=== PATIENT | female | born 1985 | race African-American/Black ===

== ENCOUNTER 2024-03-14 09:46 | Emergency (ER) | payer MEDICAID ==
[~2024-03-14] VITALS: Ht 154.9 cm; Wt 86.7 kg
--- NOTE | 2024-03-14 10:46 | ED.PDOC ---
General HPI Comments 38 Y F with PSX of x2, presents to the ED with CC of vaginal bleeding. Patient states that she has been experiencing heavy vaginal bleeding with blood clots for 3 months, with associated abdominal pain. Patient relays that she had a stillbirth 3 months ago, which she believes is associated with her symptoms. Patient states that she has been unable to see an OBGYN due to just moving from [facility]; and has yet to find a new doctor. Patient denies any NKA, tobacco usage,ETOH, or illicit drugs. Chief Complaint: Vaginal Bleed Time Seen by MD: 10:32 Primary Care Provider: SANA Reviewed notes: Nurses Notes, Medications, Allergies Allergies: Coded Allergies: Penicillins (Verified Allergy, Unknown, 03/14/24) Information Source: Patient Mode of Arrival: Ambulatory Severity: Moderate Timing: Months Duration: Since onset Onset: Spontaneous Symptoms: None History of: None Location: None Modifying factors: None associated signs and symptoms: None Past Medical History PAST MEDICAL HISTORY: Denies Surgical History: Surgical History (Other): L KNEE REPAIR PERSONAL COMPUTER SPECIALIST History: Other (STILLBIRTH ) Family History Family History: Unknown Social History Smoker: Non-Smoker Alcohol: Denies ETOH Use Drugs: Denies Drug Use Lives In: Home Constitutional: denies: chills, diaphoresis, fatigue, fever, malaise, sweats, weakness, others EENTM: denies: blurred vision, double vision, ear bleeding, ear discharge, ear drainage, ear pain, ear ringing, eye pain, eye redness, hearing loss, mouth pa in, mouth swelling, nasal discharge, nose bleeding, nose congestion, nose pain, photophobia, tearing, throat pain, throat swelling, voice changes, others Respiratory: denies: cough, hemoptysis, orthopnea, SOB at rest, shortness of breath, SOB with excertion, stridor, wheezing, others Cardiovascular: denies: chest pain, dizzy spells, diaphoresis, Dyspnea on exertion, edema, irregular heart beat, left arm pain, lightheadedness, palpitations, PND, syncope, others Gastrointestinal: reports: abdominal pain; denies: abdomen distended, blood streaked bowels, constipated, diarrhea, dysphagia, difficulty swallowing, hematemesis, melena, nausea, poor appetite, poor fluid intake, rectal bleeding, rectal pain, vomiting, others Genitourinary: reports: abnormal vagina bleeding; denies: burning, dyspareunia, dysuria, flank pain, frequency, hematuria, incontinence, pain, , vagina discharge, urgency, others Neurological: denies: dizziness, fainting, headache, left sided numbness, left sided weakness, numbness, paresthesia, pre-existing deficit, right sided numbness, right sided weakness, seizure, speech problems, tingling, tremors, weakness, others Musculoskeletal: denies: back pain, gout, joint pain, joint swelling, muscle pain, muscle stiffness, neck pain, others Integumetry: denies: bruises, change in color, change in hair/nails, dryness, laceration, lesions, lumps, rash, wounds, others Allergic/Immunocompromised: denies: Difficulty Healing, Frequent Infections, Hives, Itching, others Hematologic/Lymphatic: denies: anemia, blood clots, easy bleeding, easy bruising, swollen glands, others Endocrine: denies: excessive hunger, excessive sweating, excessive thirst, excessive urination, flushing, intolerance to cold, intolerance to heat, unexplained weight gain, unexplained weight loss, others Psychiatric: denies: anxiety, bipolar disorder, depression, hopeless, panic di sorder, schizophrenia, sleepless, suicidal, others All Other Systems: Reviewed and Negative Physical Exam General Appearance: No Apparent Distress, Normal HEENT: Normal ENT Inspection, Pharynx Normal, TMs Normal Neck: Full Range of Motion, Non-Tender, Normal, Normal Inspection Respiratory: Chest Non-Tender, Lungs Clear, No Accessory Muscle Use, No Respiratory Distress, Normal Breath Sounds Cardiovascular: No Edema, No JVD, No Murmur, No Gallop, Normal Peripheral Pulses, Regular Rate/Rhythm Breast Exam: Deferred Gastrointestinal: No Organomegaly, Non Tender, No Pulsatile Mass, Normal Bowel Sounds, Soft Genitalia: Deferred Pelvic: Deferred Rectal: Deferred Extremities: No calf tenderness, Normal capillary refill, Normal inspection, Normal range of motion, Non-tender, No pedal edema Musculoskeletal : Apperance: Normal Neurologic: Alert, refractory worker II-XII nml as Tested, No Motor Deficits, Normal Affect, Normal Mood, No Sensory Deficits Cerebellar Function: Normal Reflexes: Normal Skin: Dry, Normal Color, Warm Lymphatic: No Adenopathy Was a procedure done? Was a procedure done?: No Differential Diagnosis Kidney stone (Female): Cholelithiasis, Urinary obstruction, Urolithiasis Urinary Problem (Female): Urolithiasis, Vaginitis X-Ray, Labs, Meds, VS Vital Signs Date Time Temp Pulse Resp B/P (MAP) Pulse Ox O2 Delivery O2 Flow Rate FiO2 03/14/24 11:35 98.4 85 18 126/86 (99) 100 98.4 03/14/24 09:58 99.3 101 18 131/86 (101) 98 Lab Test 03/14/24 12:23 03/14/24 10:54 Range/Units White Blood Count 9.6 4.4-10.8 10^3/uL Red Blood Count 4.53 4.0-5.20 10^6/uL Hemoglobin 14.5 12.2-16.2 g/dL Hematocrit 43.3 36.0-46.0 % Mean Corpuscular Volume 95.6 80.0-100.0 fL Mean Corpuscular Hemoglobin 31.9 28.0-32.0 pg Mean Corpuscular Hemoglobin Concent 33.4 32.0-36.0 g/dL Red Cell Distribution Width 14.1 11.8-14.3 % Platelet Count 277 140-450 10^3/uL Mean Platelet Volume 8.9 6.9-10.8 fL Neutrophils (%) (Auto) 75.4 37.0-80.0 % Lymphocytes (%) (Auto) 18.0 10.0-50.0 % Monocytes (%) (Auto) 5.9 0.0-12.0 % Eosinophils (%) (Auto) 0.2 0.0-7.0 % Basophils (%) (Auto) 0.5 0.0-2.0 % Neutrophils # (Auto) 7.3 1.6-8.6 10 ^3/uL Lymphocytes # (Auto) 1.7 0.4-5.4 10 ^3/uL Monocytes # (Auto) 0.6 0-1.3 10 ^3/uL Eosinophils # (Auto) 0 0-0.8 10 ^3/uL Basophils # (Auto) 0.1 0-0.2 10 ^3/uL Nucleated Red Blood Cells 0.1 % Prothrombin Time 10.3 9.3-11.8 sec Prothrombin Time INR 0.97 0.9-1.15 Sodium Level 140 136-145 mmol/L Potassium Level 3.6 3.5-5.1 mmol/L Chloride Level 108 H 98-107 mmol/L Carbon Dioxide Level 24 20-31 mmol/L Anion Gap 8 5-15 Blood Urea Nitrogen 6 L 9-23 mg/dL Creatinine 0.82 0.550-1.02 mg/dL Glomerular Filtration Rate Calc 94 >90 mL/min BUN/Creatinine Ratio 7.3 L 10.0-20.0 Serum Glucose 90 74-106 mg/dL Calcium Level 10.1 8.7-10.4 mg/dL Urine Color Colorless Yellow Urine Clarity Clear Clear Urine pH 5.5 5.0-9.0 Urine Specific [place] 1.005 1.001-1.035 Urine Protein Negative Negative Urine Ketones Negative Negative Urine Blood 2+ H Negative /uL Urine Nitrite Negative Negative Urine Bilirubin Negative Negative Urine Urobilinogen Normal Negative mg/dL Urine Leukocyte Esterase Negative Negative /uL Urine RBC 1 0 - 4 /hpf Urine WBC 1 0 - 5 /hpf Urine Squamous Epithelial Cells Few <5 /hpf Urine Bacteria Few H None Seen /hpf Urine Glucose Normal Normal mg/dL Urine Test Negative Negative Time of 1ST Reevaluation: 11:02 Reevaluation 1ST: Unchanged Patient Education/Counseling: Diagnosis, Treatment Family Education/Counseling: No Family Present Additional Information The following tests were ordered, and results were reviewed by me: CBC, CMP, UA, TEST URINE I discussed treatment and results with medical personnel and patient. Departure 1 Departure Time of Disposition: 14:19 (Patient's workup is benign. We will refer patient to OBGYN for abnormal vaginal bleeding.) Impression: Primary Impression: Abnormal vaginal bleeding Disposition: HOME / SELF CARE / HOMELESS Condition: Stable Referrals: JASMYN AVALOS DO Additional Instructions: Your workup today is benign. You were referred to [facility]. Please call for an appointment today. For pain you can take the followinam: Ibuprofen 400mg with food Noon: Acetaminophen 1000mg 4pm: Ibuprofen 400mg with food 8pm: Acetaminophen 1000mg You should follow up with your regular doctor within one week to ensure you are doing better. If your symptoms worsen or you have any other concerns then please return to the ER. Discharged With: Self Critical Care Note Critical Care Time?: No Stability Stability form required: No Heart Score Heart Score: Heart Score Response (Comments) Value History N/A 0 EKG N/A 0 Age N/A 0 Risk Factors N/A 0 Troponin N/A 0 Total 0 I personally scribed for ARLYN BOWDEN MD ([email or web address]) on 03/14/24 at 10:46. Electronically submitted by Jaye Wills ([email or web address]). I personally scribed for ARLYN BOWDEN MD ([email or web address]) on 03/14/24 at 11:16. Electronically submitted by Jaye Wills ([email or web address]). ARLYN BOWDEN MD Mar 14, 2024 10:46
[2024-03-14 11:35] VITALS: BP 126/86; PULSE 85; RESP 18; TEMP 98.4; O2SAT 100
[2024-03-14 11:58] LABS: Urine Bacteria FEW /hpf (None Seen); Urine Blood 2+ /uL (Negative); Urine Clarity Clear (Clear); Urine Color Colorless (Yellow); Urine Protein, UAD Negative (Negative); Urine Specific Gravity 1.005 (1.001-1.035); Urine Urobilinogen Normal (Negative); Urine WBC 1 /hpf (0 - 5); Urine pH 5.5 (5.0-9.0)
[2024-03-14 12:45] LABS: Basophils # (auto) 0.1 10 ^3/uL (0-0.2); Basophils % (auto) 0.5 % (0.0-2.0); Eosinophils # (auto) 0 10 ^3/uL (0-0.8); Eosinophils % (auto) 0.2 % (0.0-7.0); Hematocrit 43.3 % (36.0-46.0); Hemoglobin 14.5 g/dL (12.2-16.2); Lymphocytes # (auto) 1.7 10 ^3/uL (0.4-5.4); Mean Corpuscular Hemoglobin 31.9 pg (28.0-32.0); Mean Corpuscular Hgb Conc. 33.4 g/dL (32.0-36.0); Mean Corpuscular Volume 95.6 fL (80.0-100.0); Monocytes # (auto) 0.6 10 ^3/uL (0-1.3); Monocytes % (auto) 5.9 % (0.0-12.0); Neutrophils # (auto) 7.3 10 ^3/uL (1.6-8.6); Neutrophils % (auto) 75.4 % (37.0-80.0); Nucleated Red Blood Cells % 0.1 %; Platelet Count (auto) 277 10^3/uL (140-450); Red Blood Cells 4.53 10^6/uL (4.0-5.20); Red Cell Distribution Width 14.1 % (11.8-14.3); White Blood Cell 9.6 10^3/uL (4.4-10.8)
[2024-03-14 13:01] LABS: Potassium 3.6 mmol/L (3.5-5.1); Sodium 140 mmol/L (136-145)
[2024-03-14 13:02] LABS: Anion Gap 8 (5-15); Calcium 10.1 mg/dL (8.7-10.4); Carbon Dioxide 24 mmol/L (20-31)
[2024-03-14 13:07] LABS: BUN/Creatinine Ratio 7.3 (10.0-20.0); Glucose 90 mg/dL (74-106); INR 0.97 (0.9-1.15); Prothrombin Time 10.3 sec (9.3-11.8)
[2024-03-14 13:08] LABS: Blood Urea Nitrogen 6 mg/dL (9-23); Chloride 108 mmol/L (98-107)
[2024-03-14] MEDS: KETOROLAC TROMETH 30 MG/ML 1ML VIAL IM ONE (16:15)
== END 2024-03-14 16:00 | disposition home or self-care (01) ==
LOC: ER 09:46
DX: N93.9 Abnormal uterine and vaginal bleeding, unspecified (principal); Z87.59 Personal history of other complications of pregnancy, childbirth and the puerperium; Z88.0 Allergy status to penicillin; Z32.02 Encounter for pregnancy test, result negative
CPT/HCPCS: 36415; 80048; 81001; 81025; 85025; 85610; 96372; 99283; J1885

== ENCOUNTER 2024-04-27 10:09 | Emergency (ER) | payer MEDICAID | END 2024-04-27 10:57 | disposition left against medical advice (07) | LOC: ER 10:09 | DX: M54.9 Dorsalgia, unspecified (principal); Z53.21 Procedure and treatment not carried out due to patient leaving prior to being seen by health care provider ==

== ENCOUNTER 2024-06-20 12:22 | Emergency (ER) | payer MEDICAID ==
[~2024-06-20] VITALS: Ht 165.1 cm; Wt 80.3 kg
[2024-06-20] MEDS ORDERED: CLIN1CAP70 PO (13:03)
[2024-06-20] MEDS ORDERED: HYDR-4902 PO (13:03)
--- NOTE | 2024-06-20 13:04 | ED.PDOC ---
History of Present Illness HPI Comments 38-year-old female who comes in with chief complaint of left forehead swelling with some tenderness and redness. The patient denies any nausea, vomiting or diarrhea. The patient denies any fever at this time. The patient also denies any type of trauma. 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, Other Family History Family History: Unknown Social History Smoker: Non-Smoker Alcohol: Occasionally Drugs: Denies Drug Use Lives In: Home Constitutional: denies: chills, diaphoresis, fatigue, fever, malaise, sweats, weakness, others EENTM: denies: blurred vision, double vision, ear bleeding, ear discharge, ear drainage, ear pain, ear ringing, eye pain, eye redness, hearing loss, mouth pain, mouth swelling, nasal discharge, nose bleeding, nose congestion, nose pain, photophobia, tearing, throat pain, throat swelling, voice changes, others Respiratory: denies: cough, hemoptysis, orthopnea, SOB at rest, shortness of breath, SOB with excertion, stridor, wheezing, others Cardiovascular: denies: chest pain, dizzy spells, diaphoresis, Dyspnea on exertion, edema, irregular heart beat, left arm pain, lightheadedness, palpitations, PND, syncope, others Gastrointestinal: denies: abdomen distended, abdominal pain, blood streaked bowels, constipated, diarrhea, dysphagia, difficulty swallowing, hematemesis, melena, nausea, poor appetite, poor fluid intake, rectal bleeding, rectal pain, vomiting, others Genitourinary: denies: abnormal vagina bleeding, burning, dyspareunia, dysuria, flank pain, frequency, hematuria, incontinence, pain, , vagina discharge, urgency, others Neurological: denies: dizziness, fainting, headache, left sided numbness, left sided weakness, numbness, paresthesia, pre-existing deficit, right sided numbness, right sided weakness, seizure, speech problems, tingling, tremors, weakness, others Musculoskeletal: denies: back pain, gout, joint pain, joint swelling, muscle pain, muscle stiffness, neck pain, others Integumetry: reports: rash (Redness to the left forehead region with some minimal swelling); denies: bruises, change in color, change in hair/nails, dryness, laceration, lesions, lumps, wounds, others Allergic/Immunocompromised: denies: Difficulty Healing, Frequent Infections, Hives, Itching, others Hematologic/Lymphatic: denies: anemia, blood clots, easy bleeding, easy bruising, swollen glands, others Endocrine: denies: excessive hunger, excessive sweating, excessive thirst, excessive urination, flushing, intolerance to cold, intolerance to heat, unexplained weight gain, unexplained weight loss, others Psychiatric: denies: anxiety, bipolar disorder, depression, hopeless, panic disorder, schizophrenia, sleepless, suicidal, others Physical Exam General Appearance: Mild Distress HEENT: Normal ENT Inspection, Pharynx Normal, TMs Normal Neck: Full Range of Motion, Non-Tender, Normal, Normal Inspection Respiratory: Chest Non-Tender, Lungs Clear, No Accessory Muscle Use, No Respiratory Distress, Normal Breath Sounds Cardiovascular: No Edema, No JVD, No Murmur, No Gallop, Normal Peripheral Pulses, Regular Rate/Rhythm Breast Exam: Deferred Gastrointestinal: No Organomegaly, Non Tender, No Pulsatile Mass, Normal Bowel Sounds, Soft Genitalia: Deferred Pelvic: Deferred Rectal: Deferred Extremities: No calf tenderness, Normal capillary refill, Normal inspection, Normal range of motion, Non-tender, No pedal edema Musculoskeletal : Apperance: Normal Neurologic: Alert, sod stripper II-XII nml as Tested, No Motor Deficits, Normal Affect, Normal Mood, No Sensory Deficits Cerebellar Function: Normal Reflexes: Normal Skin: Dry, Normal Color, Rash (Redness and swelling around the left forehead region. There is tenderness to palpation), Warm Lymphatic: No Adenopathy Was a procedure done? Was a procedure done?: No Differential Dx Considerations may include: Generalized weakness, cellulitis, abscess X-Ray, Labs, Meds, VS The patient was given [place] for the headache. The patient was being given a prescription of clindamycin The patient will return to the emergency department's the condition worsens. The patient will follow up with the primary care doctor Time of 1ST Reevaluation: 13:01 Reevaluation 1ST: Improved Patient Education/Counseling: Diagnosis, Treatment, Prognosis, Need For Follow Up Family Education/Counseling: No Family Present Departure 1 Departure Time of Disposition: 13:02 Impression: Primary Impression: Facial cellulitis Disposition: 01 HOME / SELF CARE / HOMELESS Condition: Fair Discharged With: Self Critical Care Note Critical Care Time?: No Stability Stability form required: No Heart Score Heart Score: Heart Score Response (Comments) Value History N/A 0 EKG N/A 0 Age N/A 0 Risk Factors N/A 0 Troponin N/A 0 Total 0 EFREM OSEGUERA MD Jun 20, 2024 13:04
[2024-06-20 13:41] VITALS: BP 120/81; PULSE 90; RESP 18; TEMP 98.6; O2SAT 96
[2024-06-20] MEDS: CLINDAMYCIN HCL 150 MG CAP PO ONE (13:43)
[2024-06-20] MEDS: HYDROcodone-ACET 10/325MG TAB PO ONE (13:44)
== END 2024-06-20 14:05 | disposition home or self-care (01) ==
LOC: EDBD 12:22 → ER 12:27
DX: L03.211 Cellulitis of face (principal); J45.909 Unspecified asthma, uncomplicated; Z88.0 Allergy status to penicillin; Z90.89 Acquired absence of other organs

== ENCOUNTER 2024-06-21 12:56 | Inpatient (IN) | payer MEDICAID ==
[~2024-06-21] VITALS: Ht 154.9 cm; Wt 91.4 kg
[~2024-06-21 12:56] MED LIST: CLIN1CAP70 PO; HYDR-4902 PO
--- NOTE | 2024-06-21 13:17 | ED.PDOC ---
History of Present Illness HPI Comments 38-year-old female brought by paramedics because of left face increasing swelling. She does have a wound in the left forehead. She states that it started as a pimple few days ago was seen in the ER yesterday was given clindamycin sent home. She states that the swelling has been increasing on the left side of the face starting from the wound which is at the forehead. Denies any other symptoms. Time Seen by MD: 13:01 Primary Care Provider: none Reviewed Notes: Nurses Notes, Medications, Allergies Allergies: Coded Allergies: Penicillins (Verified Allergy, Unknown, 03/14/24) Home Meds Active Scripts Hydrocodone-Acetaminophen (Hydrocodone Bitartrate/AC 5-325 mg) 1 Tab Tab, 1 TAB PO Q8HP PRN for 7 Days, #21 TAB Prov:EFREM OSEGUERA MD 06/20/24 Clindamycin Hcl (Clindamycin Hcl) 300 Mg Cap, 1 CAP PO TID, #21 CAP Prov:EFREM OSEGUERA MD 06/20/24 Information Source: Patient Mode of Arrival: Ambulatory Severity: Moderate Timing: Days Duration: Since onset Past Medical History PAST MEDICAL HISTORY: Asthma, Seizures Surgical History: , Tonsillectomy INTERLACER History: No Pertinent INTERLACER History, Other Family History Family History: Unknown Social History Smoker: Non-Smoker Alcohol: Occasionally Drugs: Denies Drug Use Lives In: Home Constitutional: denies: chills, diaphoresis, fatigue, fever, malaise, sweats, weakness, others EENTM: denies: blurred vision, double vision, ear bleeding, ear discharge, ear drainage, ear pain, ear ringing, eye pain, eye redness, hearing loss, mouth pain, mouth swelling, nasal discharge, nose bleeding, nose congestion, nose pain, photophobia, tearing, throat pain, throat swelling, voice changes, others Respiratory: denies: cough, hemoptysis, orthopnea, SOB at rest, shortness of breath, SOB with excertion, stridor, wheezing, others Cardiovascular: denies: chest pain, dizzy spells, diaphoresis, Dyspnea on exertion, edema, irregular heart beat, left arm pain, lightheadedness, palpitations, PND, syncope, others Gastrointestinal: denies: abdomen distended, abdominal pain, blood streaked bowels, constipated, diarrhea, dysphagia, difficulty swallowing, hematemesis, melena, nausea, poor appetite, poor fluid intake, rectal bleeding, rectal pain, vomiting, others Genitourinary: denies: abnormal vagina bleeding, burning, dyspareunia, dysuria, flank pain, frequency, hematuria, incontinence, pain, , vagina discharge, urgency, others Neurological: denies: dizziness, fainting, headache, left sided numbness, left sided weakness, numbness, paresthesia, pre-existing deficit, right sided numbness, right sided weakness, seizure, speech problems, tingling, tremors, weakness, others Musculoskeletal: denies: back pain, gout, joint pain, joint swelling, muscle pain, muscle stiffness, neck pain, others Integumetry: reports: wounds (Left forehead); denies: bruises, change in color, change in hair/nails, dryness, laceration, lesions, lumps, rash, others Allergic/Immunocompromised: denies: Difficulty Healing, Frequent Infections, Hives, Itching, others Hematologic/Lymphatic: denies: anemia, blood clots, easy bleeding, easy bruising, swollen glands, others Endocrine: denies: excessive hunger, excessive sweating, excessive thirst, excessive urination, flushing, intolerance to cold, intolerance to heat, un explained weight gain, unexplained weight loss, others Psychiatric: denies: anxiety, bipolar disorder, depression, hopeless, panic disorder, schizophrenia, sleepless, suicidal, others Physical Exam General Appearance: Moderate Distress HEENT: Normal ENT Inspection, Pharynx Normal, TMs Normal Neck: Full Range of Motion, Non-Tender, Normal, Normal Inspection Respiratory: Chest Non-Tender, Lungs Clear, No Accessory Muscle Use, No Respiratory Distress, Normal Breath Sounds Cardiovascular: No Edema, No JVD, No Murmur, No Gallop, Normal Peripheral Pulses, Regular Rate/Rhythm Breast Exam: Deferred Gastrointestinal: No Organomegaly, Non Tender, No Pulsatile Mass, Normal Bowel Sounds, Soft Genitalia: Deferred Pelvic: Deferred Rectal: Deferred Extremities: No calf tenderness, Normal capillary refill, Normal inspection, Normal range of motion, Non-tender, No pedal edema Musculoskeletal : Apperance: Normal Neurologic: Alert, agricultural production engineer II-XII nml as Tested, No Motor Deficits, Normal Affect, Normal Mood, No Sensory Deficits Cerebellar Function: Normal Reflexes: Normal Skin: Wounds (Left forehead) Peripheral Pulses: 3+ Radial (R), 3+ Radial (L) Lymphatic: No Adenopathy Was a procedure done? Was a procedure done?: No Differential Dx Considerations may include: Facial cellulitis Electrolyte imbalance X-Ray, Labs, Meds, VS Vital Signs Date Time Temp Pulse Resp B/P (MAP) Pulse Ox O2 Delivery O2 Flow Rate FiO2 06/21/24 15:44 77 20 119/81 06/21/24 13:45 98.4 99 14 124/86 (99) 99 98.4 06/21/24 13:43 98.3 92 20 133/64 (87) 99 98.3 06/21/24 13:40 90 20 98 Room Air* 0 21 Lab Test 06/21/24 14:31 Range/Units White Blood Count 11.1 H 4.4-10.8 10^3/uL Red Blood Count 4.08 4.0-5.20 10^6/uL Hemoglobin 12.5 12.2-16.2 g/dL Hematocrit 37.9 36.0-46.0 % Mean Corpuscular Volume 93.0 80.0-100.0 fL Mean Corpuscular Hemoglobin 30.7 28.0-32.0 pg Mean Corpuscular Hemoglobin Concent 33.0 32.0-36.0 g/dL Red Cell Distribution Width 13.9 11.8-14.3 % Platelet Count 308 140-450 10^3/uL Mean Platelet Volume 8.6 6.9-10.8 fL Neutrophils (%) (Auto) 80.9 H 37.0-80.0 % Lymphocytes (%) (Auto) 12.1 10.0-50.0 % Monocytes (%) (Auto) 5.2 0.0-12.0 % Eosinophils (%) (Auto) 1.4 0.0-7.0 % Basophils (%) (Auto) 0.4 0.0-2.0 % Neutrophils # (Auto) 9.0 H 1.6-8.6 10 ^3/uL Lymphocytes # (Auto) 1.3 0.4-5.4 10 ^3/uL Monocytes # (Auto) 0.6 0-1.3 10 ^3/uL Eosinophils # (Auto) 0.2 0-0.8 10 ^3/uL Basophils # (Auto) 0 0-0.2 10 ^3/uL Nucleated Red Blood Cells 0.1 % Current Medications Medications (Trade) Dose Ordered Sig/Jayme Route Start Time Stop Time Status Last Admin Levofloxacin/ Dextrose 100 ml @ 100 mls/hr ONCE ONCE IV 06/21/24 13:15 06/21/24 14:14 DC 06/21/24 15:31 Morphine Sulfate 4 mg ONCE ONCE IV 06/21/24 15:30 06/21/24 15:31 DC 06/21/24 15:44 Ondansetron HCl (Zofran) 4 mg ONCE ONCE IV 06/21/24 15:30 06/21/24 15:31 DC 06/21/24 15:41 Patient alert. Has swelling of the left side of the face. Started at the forehead. Vitals stable. Answering questions. Spoke with [facility] physician. Was given Levaquin. Was given clindamycin. Was given morphine for pain. Was given Zofran. Reviewed her previous visit. Explained to the patient. Continue cardiac monitoring. [facility] was going to transfer the patient but they were full at their facility approved inpatient admission and will transfer when they have room. [id number]. Time of 1ST Reevaluation: 13:08 Reevaluation 1ST: Unchanged Patient Education/Counseling: Diagnosis, Treatment, Prognosis Family Education/Counseling: No Family Present Departure 1 Departure Time of Disposition: 13:17 Impression: Primary Impression: Facial cellulitis Disposition: 02 SHORT TERM HOSPITAL Admit to: Med Surg Condition: Guarded Critical Care Note Critical Care Time?: No Stability Stability form required: No Heart Score Heart Score: Heart Score Response (Comments) Value History N/A 0 EKG N/A 0 Age N/A 0 Risk Factors N/A 0 Troponin N/A 0 Total 0 WEI BRICENO MD Jun 21, 2024 13:17
[2024-06-21 13:40] VITALS: PULSE 90; RESP 20; O2SAT 98
[2024-06-21 14:45] LABS: Basophils # (auto) 0 10 ^3/uL (0-0.2); Basophils % (auto) 0.4 % (0.0-2.0); Eosinophils # (auto) 0.2 10 ^3/uL (0-0.8); Eosinophils % (auto) 1.4 % (0.0-7.0); Hematocrit 37.9 % (36.0-46.0); Hemoglobin 12.5 g/dL (12.2-16.2); Lymphocytes # (auto) 1.3 10 ^3/uL (0.4-5.4); Lymphocytes % (auto) 12.1 % (10.0-50.0); Mean Corpuscular Hemoglobin 30.7 pg (28.0-32.0); Monocytes # (auto) 0.6 10 ^3/uL (0-1.3); Monocytes % (auto) 5.2 % (0.0-12.0); Neutrophils % (auto) 80.9 % (37.0-80.0); Nucleated Red Blood Cells % 0.1 %; Platelet Count (auto) 308 10^3/uL (140-450); Red Blood Cells 4.08 10^6/uL (4.0-5.20); Red Cell Distribution Width 13.9 % (11.8-14.3); White Blood Cell 11.1 10^3/uL (4.4-10.8)
[2024-06-21] MEDS ORDERED: HYDROcodone-ACET 10/325MG TAB PO ONE (15:15)
[2024-06-21] MEDS: levoFLOXacin 500MG 100 ML IV ONE (15:31)
[2024-06-21] MEDS: ONDANSETRON HCL 4 MG/2 ML VIAL IV ONE (15:41)
[2024-06-21] MEDS: MORPHINE SULFATE 4 MG/ML SYR/VIAL IV ONE ×2 (15:44→19:06)
--- NOTE | 2024-06-21 17:33 | DVH ---
EXAM: CT MAXILLOFACIAL WITHOUT INDICATION: cellulitis EXAM DATE: 06/21/2024 04:59 PM COMPARISON: None TECHNIQUE: Multiple axial CT images of the maxilla and face were obtained using bone algorithm. Axial and coronal reformatting was done. Bone and soft tissue windows were reviewed. Radiation Dose Information: CT Dose: CTDI volume is 66.97 mGy. Dose-length product is 1869.65 mGy*cm Findings: There is no evidence of an acute fracture or traumatic subluxations. No evidence of lytic, blastic, or osseous destructive lesions. The paranasal sinuses, middle ear cavities, and mastoid air cells are normally aerated. The globes an d orbits are within normal limits. The nasal septum, nasal cavity, nasopharynx, and oropharynx are grossly unremarkable. The thyroid gland is unremarkable. The paraspinal and neck soft tissues appear within normal limits. Mild left periorbital soft tissue edema. Impression: 1. No acute osseous abnormalities. 2. Mild left periorbital soft tissue edema.
[2024-06-21] MEDS: CLINDAMYCIN 600MG IV 50 ML IV ONE (18:57)
[2024-06-21] MEDS: SODIUM CHLORIDE 0.9% 1,000 ML IV ONE ×2 (19:11)
[2024-06-21] MEDS: HYDROcodone-ACET 5/325MG TAB PO PRN (19:40)
[2024-06-21 20:06] LABS: Alanine Aminotransferase 20 U/L (7-40); Albumin 4.3 g/dL (3.2-4.8); Alkaline Phosphatase 66 U/L (46-116); Anion Gap 9 (5-15); Aspartate Aminotransferase 16 U/L (13-40); BUN/Creatinine Ratio 7.8 (10.0-20.0); Bilirubin, Total 0.4 mg/dL (0.2-1.0); Calcium 9.4 mg/dL (8.7-10.4); Carbon Dioxide 24 mmol/L (20-31); Glucose 85 mg/dL (74-106); Potassium 3.9 mmol/L (3.5-5.1); Sodium 140 mmol/L (136-145); Total Protein 6.9 g/dL (5.7-8.2)
[2024-06-21 20:10] LABS: Blood Urea Nitrogen 6 mg/dL (9-23); Chloride 107 mmol/L (98-107)
[2024-06-21 21:00] VITALS: BP 120/78; PULSE 88; RESP 17; TEMP 98.9; O2SAT 99
[2024-06-21 21:18] VITALS: BP 120/78; PULSE 88; RESP 17; TEMP 98.9; O2SAT 99
[2024-06-21] MEDS ORDERED: CLINDAMYCIN 600MG IV 50 ML IV SCH (22:00)
--- NOTE | 2024-06-21 22:22 | DVHHP2 ---
History of Present Illness Reason for Visit: Facial swelling History of Present Illness 38-year-old female presents for evaluation of left facial swelling. Patient reports being seen yesterday for a wound on her left forehead that started as a pimple three days ago. She was sent home with clindamycin. She states the symptoms became worse today now she reports having left periorbital redness and swelling. Denies blurred vision. No headache. Denies fever or chills. Past Medical History Seizure and asthma Past Surgical History Tonsillectomy and Family History Noncontributory Smoke: No ALCOHOL: occassional Drugs: None Lives: with Family Review of Systems Review of Systems Review of systems are currently negative otherwise addressed in HPI. Allergies: Coded Allergies: Penicillins (Verified Allergy, Unknown, 03/14/24) Medications Current Medications Medications Dose Ordered Sig/Jayme Route Start Time Stop Time Status Last Admin Dose Admin Levofloxacin/ Dextrose 100 ml @ 100 mls/hr DAILY IV 06/22/24 10:00 Clindamycin Phosphate 50 ml @ 50 mls/hr Q8HR IV 06/21/24 22:00 Acetaminophen/ Hydrocodone Bitart 1 tab Q4HP PRN PO 06/21/24 19:00 06/21/24 19:40 1 TAB Temazepam 15 mg QHSP PRN PO 06/21/24 19:00 Ondansetron HCl 4 mg Q4HP PRN IV 06/21/24 19:00 Acetaminophen 650 mg Q6HP PRN PO 06/21/24 19:00 Exam Vital Signs Vital Signs Date Time Temp Pulse Resp B/P (MAP) Pulse Ox O2 Delivery O2 Flow Rate FiO2 06/21/24 21:00 98.9 88 17 120/78 (92) 99 98.9 06/21/24 19:25 Room Air* 0 21 Exam Gen: 38-year-old female in mild distress Skin: Warm, dry, normal color and texture, no rash. HEENT: Normocephalic atraumatic, left periorbital erythema, left frontal scalp erythema Neck: Cervical and supraclavicular nodes normal without enlargement, trachea is midline, thyroid gland is normal without masses. Pulmonary: Clear to auscultation and percussion bilaterally. Cardiac: Regular rate and rhythm. No murmur Abdomen: Soft, nontender, nondistended, bowel sounds present all 4 quadrants, no guarding, no rigidity, no organomegaly. Extremities: No cyanosis, clubbing, no edema Neuro: Cranial nerves II through XII grossly intact, normal affect and speech, no focal motor deficits. Labs/Xrays ORDERING PHYSICIAN: WEI BRICENO MD PROCEDURE(s): FAC2C - MAXILLOFACIAL WITHOUT REASON: cellulitis ORDER NUMBER(s): [id number], ACCESSION NUMBER(s): [id number] EXAM: CT MAXILLOFACIAL WITHOUT INDICATION: cellulitis EXAM DATE: 06/21/2024 04:59 PM COMPARISON: None TECHNIQUE: Multiple axial CT images of the maxilla and face were obtained using bone algorithm. Axial and coronal reformatting was done. Bone and soft tissue windows were reviewed. Radiation Dose Information: CT Dose: CTDI volume is 66.97 mGy. Dose-length product is 1869.65 mGy*cm Findings: There is no evidence of an acute fracture or traumatic subluxations. No evidence of lytic, blastic, or osseous destructive lesions. The paranasal sinuses, middle ear cavities, and mastoid air cells are normally aerated. The globes and orbits are within normal limits. The nasal septum, nasal cavity, nasopharynx, and oropharynx are grossly unremarkable. The thyroid gland is unremarkable. The paraspinal and neck soft tissues appear within normal limits. Mild left periorbital soft tissue edema. Impression: 1. No acute osseous abnormalities. 2. Mild left periorbital soft tissue edema. Labs Test 06/21/24 19:30 06/21/24 14:31 Range/Units Sodium Level 140 136-145 mmol/L Potassium Level 3.9 3.5-5.1 mmol/L Chloride Level 107 98-107 mmol/L Carbon Dioxide Level 24 20-31 mmol/L Anion Gap 9 5-15 Blood Urea Nitrogen 6 L 9-23 mg/dL Creatinine 0.77 0.550-1.02 mg/dL Glomerular Filtration Rate Calc 101 >90 mL/min BUN/Creatinine Ratio 7.8 L 10.0-20.0 Serum Glucose 85 74-106 mg/dL Lactic Acid Level 0.9 0.4-2.0 mmol/L Calcium Level 9.4 8.7-10.4 mg/dL Total Bilirubin 0.4 0.2-1.0 mg/dL Aspartate Amino Transferase (AST) 16 13-40 U/L Alanine Aminotransferase (ALT) 20 7-40 U/L Alkaline Phosphatase 66 46-116 U/L Total Protein 6.9 5.7-8.2 g/dL Albumin 4.3 3.2-4.8 g/dL White Blood Count 11.1 H 4.4-10.8 10^3/uL Red Blood Count 4.08 4.0-5.20 10^6/uL Hemoglobin 12.5 12.2-16.2 g/dL Hematocrit 37.9 36.0-46.0 % Mean Corpuscular Volume 93.0 80.0-100.0 fL Mean Corpuscular Hemoglobin 30.7 28.0-32.0 pg Mean Corpuscular Hemoglobin Concent 33.0 32.0-36.0 g/dL Red Cell Distribution Width 13.9 11.8-14.3 % Platelet Count 308 140-450 10^3/uL Mean Platelet Volume 8.6 6.9-10.8 fL Neutrophils (%) (Auto) 80.9 H 37.0-80.0 % Lymphocytes (%) (Auto) 12.1 10.0-50.0 % Monocytes (%) (Auto) 5.2 0.0-12.0 % Eosinophils (%) (Auto) 1.4 0.0-7.0 % Basophils (%) (Auto) 0.4 0.0-2.0 % Neutrophils # (Auto) 9.0 H 1.6-8.6 10 ^3/uL Lymphocytes # (Auto) 1.3 0.4-5.4 10 ^3/uL Monocytes # (Auto) 0.6 0-1.3 10 ^3/uL Eosinophils # (Auto) 0.2 0-0.8 10 ^3/uL Basophils # (Auto) 0 0-0.2 10 ^3/uL Nucleated Red Blood Cells 0.1 % Assessment/Plan Assessment/Plan Assessment Facial cellulitis Mild leukocytosis Plan Admit the patient to [facility] to the hospitalist Levaquin/vancomycin Blood cultures pending Pain management Continue treatment per orders. Plan discussed with: Patient My Orders Orders - CHEYENNE LAINEZ AGACNP Procedure Category Date Status Time Levofloxacin 500mg PHA 06/22/24 In Process (Levaquin 500mg/ 100m 10:00 Clindamycin 600mg Iv PHA 06/21/24 In Process (Cleocin Iv) 22:00 Regular Diet DIET 06/22/24 Transmitted Breakfast Basic Metabolic Panel LAB 06/22/24 Verified 04:00 Blood Culture RAUL 06/21/24 In Process 18:55 Admit ADMIT 06/21/24 Transmitted 18:55 Hydrocodone-Acet PHA 06/21/24 In Process 5/325mg Tab ([place] 19:00 Temazepam (Restoril) PHA 06/21/24 In Process 19:00 Ondansetron Hcl PHA 06/21/24 In Process (Zofran) 19:00 Complete Blood Count LAB 06/22/24 Verified 04:00 Condition: Stable ROHAN 06/21/24 In Process 18:55 Acetaminophen Tablet PHA 06/21/24 In Process (Tylenol Tablet) 19:00 Bedrest With Bathroom ROHAN 06/21/24 In Process Privileg 18:55 Vancomycin Per PHA 06/22/24 Verified Pharmacy 12:00 Vancomycin PHA 06/21/24 Verified 22:30 Date of Service: Jun 21, 2024 Billing Provider: CHEYENNE LAINEZ Common Visit Codes: [id number] INP/OBS CARE (MOD) CHEYENNE LAINEZ Jun 21, 2024 22:22
[2024-06-21] MEDS: VANCOMYCIN 1GM/250ML KIT 250 ML IV ONE (22:30)
[2024-06-21] MEDS ORDERED: HYDROcodone-ACET 5/325MG TAB PO PRN (23:00)
[2024-06-21] MEDS: TEMAZEPAM 15 MG CAP PO PRN (23:23)
[2024-06-22] VITALS (8 sets, daily range): BP systolic 104–125; BP diastolic 63–79; PULSE 63–106; RESP 16–20; TEMP 97.7–98.7; O2SAT 95–100
[2024-06-22] MEDS: VANCOMYCIN 1GM/250ML KIT 250 ML IV ONE (00:06)
[2024-06-22] MEDS: LORazepam 2MG/ML-1ML VIAL ONE (03:02)
--- NOTE | 2024-06-22 03:35 | DVH ---
EXAM: CT HEAD WITHOUT CONTRAST INDICATION: szr TECHNIQUE: CT of the head without intravenous contrast. Radiation Dose : 1. Head: CT Dose: CTDI volume is 64.93 mGy. Dose-length product is 1277.89 mGy*cm The dose indicators for CT are the volume Computed Tomography (CT) Dose Index (CTDIvol) and the Dose Length Product (DLP), and are measured in units of mGy and mGy-cm, respectively. These indicators are not patient dose, but values generated from the CT scanner acquisition factors. The report includes radiation exposure data for exposures received during this examination. COMPARISON: None FINDINGS: There is no evidence of acute intracranial hemorrhage, extra-axial collection, mass effect, midline s hift, herniation or hydrocephalus. The ventricles, sulci and cisterns are age appropriate. The doshi-white differentiation is intact. Right ethmoid sinus mucosal thickening and left maxillary polypoid mucosal sinus disease. The remain visualized paranasal sinuses and mastoid air cells are clear. The surrounding soft tissues and osseous structures are unremarkable. IMPRESSION: 1. No acute intracranial abnormality. Radiation optimization: All CT scans at this facility use at least one of these dose optimization benny hniques: automated exposure control mA and/or kV adjustment per patient size (includes targeted exam s where dose is matched to clinical indication) or iterative reconstruction.
[2024-06-22] MEDS: LORazepam 2MG/ML-1ML VIAL IV ONE (04:58)
[2024-06-22] MEDS: LORazepam 2MG/ML-1ML VIAL IV PRN ×2 (04:59→13:53)
[2024-06-22] MEDS: levETIRAcetam 1000 mg/100ml 100 ML IV ONE ×2 (05:00→05:01)
[2024-06-22] MEDS: LEVETIRACETAM 500 MG/100 ML IV ONE (05:00)
[2024-06-22 07:25] LABS: Potassium 3.7 mmol/L (3.5-5.1); Sodium 142 mmol/L (136-145)
[2024-06-22 07:26] LABS: Anion Gap 9 (5-15); Calcium 8.9 mg/dL (8.7-10.4); Carbon Dioxide 24 mmol/L (20-31)
[2024-06-22 07:27] LABS: Chloride 109 mmol/L (98-107)
[2024-06-22 07:31] LABS: BUN/Creatinine Ratio 8.1 (10.0-20.0); Basophils # (auto) 0 10 ^3/uL (0-0.2); Basophils % (auto) 0.5 % (0.0-2.0); Eosinophils # (auto) 0.2 10 ^3/uL (0-0.8); Eosinophils % (auto) 2.9 % (0.0-7.0); Glucose 99 mg/dL (74-106); Hematocrit 34.4 % (36.0-46.0); Hemoglobin 11.3 g/dL (12.2-16.2); Lymphocytes # (auto) 1.9 10 ^3/uL (0.4-5.4); Lymphocytes % (auto) 28.5 % (10.0-50.0); Mean Corpuscular Hemoglobin 31.4 pg (28.0-32.0); Mean Corpuscular Hgb Conc. 32.9 g/dL (32.0-36.0); Mean Corpuscular Volume 95.5 fL (80.0-100.0); Monocytes # (auto) 0.6 10 ^3/uL (0-1.3); Monocytes % (auto) 8.7 % (0.0-12.0); Neutrophils % (auto) 59.4 % (37.0-80.0); Platelet Count (auto) 276 10^3/uL (140-450); Red Blood Cells 3.61 10^6/uL (4.0-5.20); Red Cell Distribution Width 13.5 % (11.8-14.3); White Blood Cell 6.8 10^3/uL (4.4-10.8)
[2024-06-22 07:32] LABS: Blood Urea Nitrogen 6 mg/dL (9-23)
[2024-06-22] MEDS: levETIRAcetam 500 mg/100ml 100 ML IV SCH (09:19)
[2024-06-22] MEDS: VANCOMYCIN 1.25GM/250ML 250 ML IV SCH (10:25)
[2024-06-22] MEDS: levoFLOXacin 500MG 100 ML IV SCH (11:33)
[2024-06-22] MEDS ORDERED: VANCOMYCIN PER PHARMACY 0 MG IV SCH (12:00)
--- NOTE | 2024-06-22 12:46 | DVHPN2 ---
Reviewed: Care Plan, H&P, Labs, Medications, Previous Orders, Radiology Changes from previous H/P or p: No Changes Objective Vitals Vital Signs Date Time Temp Pulse Resp B/P (MAP) Pulse Ox O2 Delivery O2 Flow Rate FiO2 06/22/24 08:00 77 20 99 Nasal Cannula* 2 28 06/22/24 05:00 98.2 110/63 (79) 98.2 Intake/Output Intake and Output 06/22/24 07:00 Intake Total 1500 ml Balance 1500 ml Intake Oral 250 ml IV Total 1250 ml Medications Current Medications Medications Dose Ordered Sig/Jayme Route Start Time Stop Time Status Last Admin Dose Admin Levofloxacin/ Dextrose 100 ml @ 100 mls/hr DAILY IV 06/22/24 10:00 06/22/24 11:33 100 MLS/HR Acetaminophen/ Hydrocodone Bitart 1 tab Q4HP PRN PO 06/21/24 19:00 06/21/24 23:27 1 TAB Temazepam 15 mg QHSP PRN PO 06/21/24 19:00 06/21/24 23:23 15 MG Ondansetron HCl 4 mg Q4HP PRN IV 06/21/24 19:00 Acetaminophen 650 mg Q6HP PRN PO 06/21/24 19:00 Vancomycin HCl 0 ml @ 0 mls/hr UD IV 06/22/24 12:00 Lorazepam 1 mg Q5MINP PRN IV 06/22/24 04:00 06/22/24 11:29 1 MG Levetiracetam 500 mg BID PO 06/22/24 22:00 Cancel Levetiracetam 100 ml @ 400 mls/hr BID IV 06/22/24 10:00 06/22/24 09:19 400 MLS/HR Vancomycin HCl 250 ml @ 200 mls/hr Q12H IV 06/22/24 10:00 06/22/24 10:25 200 MLS/HR Laboratory Results Laboratory Tests 06/22/24 05:35 Chemistry Test 06/21/24 19:30 06/22/24 05:35 Albumin 4.3 g/dL (3.2-4.8) Calcium Level 9.4 mg/dL (8.7-10.4) 8.9 mg/dL (8.7-10.4) Total Protein 6.9 g/dL (5.7-8.2) LFT Test 06/21/24 19:30 Alanine Aminotransferase (ALT) 20 U/L (7-40) Alkaline Phosphatase 66 U/L (46-116) Aspartate Amino Transferase (AST) 16 U/L (13-40) Total Bilirubin 0.4 mg/dL (0.2-1.0) Labs and/or images reviewed: Labs reviewed by me, Image(s) reviewed by me Assessment/Plan Assessment/Plan Cellulitis left face: Vancomycin Levaquin failed outpatient p.o. antibiotics History of seizures: Keppra CT head negative Maxillofacial CT shows left periorbital swelling Recurrent seizures: Patient had four seizures this morning and now in postictal state; Neuro consult for Dr. Aguayo Patient not stable for transfer to [facility] discussed with: Patient Date of Service: Jun 22, 2024 Billing Provider: SUMMER MCDANIEL MD Common Visit Codes: [id number] INP/OBS CARE(HIGH) SUMMER MCDANIEL MD Jun 22, 2024 12:46
--- NOTE | 2024-06-22 20:54 | DVHINCON2 ---
Date of service: Jun 22, [address] Doan Reason for Consultation Recurrent seizures History of Present Illness Ms. Wen is a 38 years old female with a history of obesity, asthma, seizure disorder, she came to the [facility] on 06/21[facility]2024 with a chief company of progressive left facial swelling, but patient was has a seizure disorder At that time, the patient was is awake, able to talk with slow and soft voice, he was oriented to person, place, she knows year and the month, but she does not want to talk, no family available for history The chart mentioned the patient was has a history of seizure however no details listed, her home medication did not include seizure medication On 06/22/2024, the patient was had multiple seizure attacks, a witnessed one of them, in that the patient was on her right side in her bed, with shaking movement in the arms, torso, that was not typical to seizure activity, her eyes were is a open and staring out, closed, or blinked frequently. The shaking intensity in the torso and upper extremities fluctuate during seizure activity, the seizure lasts for several minutes, with no change in her skin color, normal pulse ox, but there was increased heart rate, there was no increased saliva, or abnormal skin secretion noticed. The patient was nonresponsive during the seizure activity [phone], Fady answered, he claimed he was her but he did not have password. [phone], tiara [phone] is her cell number [id number] CBC, 06/21/24: Unremarkable CMP, : Unremarkable Prolactin, 06/22/2024 14 50: 9.16 CT head, 06/22/2024: No acute intracranial abnormality. Past Medical History Asthma, Seizures Past Surgical History , Tonsillectomy, Right femur surgery, right leg surgery Family History: Patient reports no known family medical history. Family History Unknown Social History Smoker: Non-Smoker Alcohol: Occasionally Drugs: Denies Drug Use Lives In: Home Allergies: Coded Allergies: Penicillins (Verified Allergy, Unknown, 03/14/24) Home Meds Active Scripts Hydrocodone-Acetaminophen (Hydrocodone Bitartrate/AC 5-325 mg) 1 Tab Tab, 1 TAB PO Q8HP PRN for 7 Days, #21 TAB Prov:EFREM OSEGUERA MD 06/20/24 Clindamycin Hcl (Clindamycin Hcl) 300 Mg Cap, 1 CAP PO TID, #21 CAP Prov:EFREM OSEGUERA MD 06/20/24 Current Medications Current Medications Medications (Trade) Dose Ordered Sig/Jayme Route PRN Reason Start Time Stop Time Status Last Admin Levofloxacin/ Dextrose 100 ml @ 100 mls/hr DAILY IV 06/22/24 10:00 06/22/24 11:33 Clindamycin Phosphate 50 ml @ 50 mls/hr Q8HR IV 06/21/24 22:00 06/21/24 22:19 DC Vancomycin HCl 0 ml @ 0 mls/hr UD IV 06/22/24 12:00 Acetaminophen/ Hydrocodone Bitart ([place] 5/325MG Tab) 1 tab Q4HPRN PRN PO MODERATE PAIN (4-6 PAIN SCALE) 06/21/24 23:00 06/22/24 03:04 DC Lorazepam (Ativan Inj) 1 mg Q5MINP PRN IV SEIZURES 06/22/24 04:00 06/22/24 13:37 DC 06/22/24 13:06 Levetiracetam (Keppra Tablet) 500 mg BID PO 06/22/24 22:00 Cancel Levetiracetam 100 ml @ 400 mls/hr BID IV 06/22/24 10:00 06/22/24 09:19 Vancomycin HCl 250 ml @ 200 mls/hr Q12H IV 06/22/24 10:00 06/22/24 10:25 Lorazepam (Ativan Inj) 1 mg Q5MINP PRN IV SEIZURES 06/22/24 13:00 06/22/24 19:49 Review of Systems Unobtainable Vital Signs Vital Signs Date Time Temp Pulse Resp B/P (MAP) Pulse Ox O2 Delivery O2 Flow Rate FiO2 06/22/24 20:00 77 18 99 Nasal Cannula* 2 28 06/22/24 17:00 98.1 108/64 (79) 98.1 Physical Exam GENERAL EXAM: General: the patient is well developed and nourished. No acute distress. HEENT: Normocephalic, neck is supple, no carotid bruits. No mass. RESPIRATORY: Normal respiratory effort with symmetrical lung expansion. Lungs clear to auscultation. CARDIOVASCULAR: Regular rate and rhythm with no murmurs. S1, S2. ABDOMEN: Soft, nontender, normal bowel sound NEUROLOGICAL: MENTAL STATUS: Awake and alert. Oriented to person, place, she knows year and the month SPEECH, LANGUAGE, HIGHER CORTICAL FUNCTION: No aphasia, voice is weak and slightly slurry CRANIAL NERVES: #2: Intact visual ott to confrontation.. #3,4,6: Pupils are equal, round and reactive. EOMs full and conjugate. #5: Facial sensation intact in all three divisions bilaterally. Mandibular strength intact. #7: Facial muscles symmetrical and strength intact. #8: Hearing grossly normal to voice. #9,10: Uvula and soft palate rise in the midline. Swallow and voice are normal. #11: Trapezius and sternomastoid strength intact bilaterally. #12: Tongue midline. No fasciculations or atrophy. SENSATION: Sensation to touch and pinprick is okay MOTOR: Normal tone in the upper and lower extremity. Normal muscle bulk. No fasciculations. No abnormal movements or posturing. Muscle strength of the major groups in the extremities is no less than 4/5. REFLEXES: Deep tendon reflexes are symmetrical. No pathological reflexes. CEREBELLAR/COORDINATION: Deferred GAIT/STATION: Unsteady, needs support to walk Labs/Diagnostic Data Labs Test 06/22/24 14:50 06/22/24 05:35 06/21/24 19:30 Range/Units Prolactin 9.16 2.8-29.2 ng/mL White Blood Count 6.8 # 4.4-10.8 10^3/uL Red Blood Count 3.61 L 4.0-5.20 10^6/uL Hemoglobin 11.3 L 12.2-16.2 g/dL Hematocrit 34.4 L 36.0-46.0 % Mean Corpuscular Volume 95.5 80.0-100.0 fL Mean Corpuscular Hemoglobin 31.4 28.0-32.0 pg Mean Corpuscular Hemoglobin Concent 32.9 32.0-36.0 g/dL Red Cell Distribution Width 13.5 11.8-14.3 % Platelet Count 276 140-450 10^3/uL Mean Platelet Volume 8.9 6.9-10.8 fL Neutrophils (%) (Auto) 59.4 37.0-80.0 % Lymphocytes (%) (Auto) 28.5 10.0-50.0 % Monocytes (%) (Auto) 8.7 0.0-12.0 % Eosinophils (%) (Auto) 2.9 0.0-7.0 % Basophils (%) (Auto) 0.5 0.0-2.0 % Neutrophils # (Auto) 4.0 1.6-8.6 10 ^3/uL Lymphocytes # (Auto) 1.9 0.4-5.4 10 ^3/uL Monocytes # (Auto) 0.6 0-1.3 10 ^3/uL Eosinophils # (Auto) 0.2 0-0.8 10 ^3/uL Basophils # (Auto) 0 0-0.2 10 ^3/uL Nucleated Red Blood Cells 0.0 % Sodium Level 142 136-145 mmol/L Potassium Level 3.7 3.5-5.1 mmol/L Chloride Level 109 H 98-107 mmol/L Carbon Dioxide Level 24 20-31 mmol/L Anion Gap 9 5-15 Blood Urea Nitrogen 6 L 9-23 mg/dL Creatinine 0.74 0.550-1.02 mg/dL Glomerular Filtration Rate Calc 106 >90 mL/min BUN/Creatinine Ratio 8.1 L 10.0-20.0 Serum Glucose 99 74-106 mg/dL Calcium Level 8.9 8.7-10.4 mg/dL Lactic Acid Level 0.9 0.4-2.0 mmol/L Total Bilirubin 0.4 0.2-1.0 mg/dL Aspartate Amino Transferase (AST) 16 13-40 U/L Alanine Aminotransferase (ALT) 20 7-40 U/L Alkaline Phosphatase 66 46-116 U/L Total Protein 6.9 5.7-8.2 g/dL Albumin 4.3 3.2-4.8 g/dL Microbiology Date/Time Source Procedure Growth Status 06/21/24 19:30 Blood Blood Culture - Preliminary NO GROWTH AFTER 24 HOURS OF INCUBATION. Resulted Assessment Frequent generalized seizure activity, with atypical feature, the one I witnessed was not epileptic seizure Status epileptics with atypical feature Plan/Recommendation Monitoring Supportive treatment Telemetry EEG MR brain Ativan for seizure breakthrough Keppra 500 mg b.i.d. for the time being Transfer to [facility] for continuous video EEG monitoring More recommendation per clinical course Progress: Poor This medical document was created using an electronic medical record system with Dragon computerized dictation system. Although this document has been carefully reviewed, there may still be some phonetic and typographical errors. These areas are purely typographical due to imperfections of the software programs, and do not reflect any compromise in the patient's medical care. Plan discussed with: NAYAN Fajardo MD Jun 22, 2024 20:54
[2024-06-22] MEDS ORDERED: levETIRAcetam 500 MG TAB PO SCH (22:00)
[2024-06-23] VITALS (8 sets, daily range): BP systolic 106–128; BP diastolic 64–82; PULSE 78–103; RESP 16–20; TEMP 97.6–98.1; O2SAT 97–100
[2024-06-23] MEDS: HYDROmorphone HCL 2 MG/ML VL/or syr IV PRN (09:17)
--- NOTE | 2024-06-23 11:11 | DVHPN2 ---
Reviewed: Care Plan, H&P, Labs, Medications, Previous Orders, Radiology Changes from previous H/P or p: No Changes Objective Vitals Vital Signs Date Time Temp Pulse Resp B/P (MAP) Pulse Ox O2 Delivery O2 Flow Rate FiO2 06/23/24 09:47 111 17 120/70 06/23/24 09:00 97.9 99 97.9 06/22/24 20:00 Nasal Cannula* 2 28 Intake/Output Intake and Output 06/23/24 07:00 Intake Total 450 ml Output Total 800 ml Balance -350 ml Intake Oral 0 ml IV Total 450 ml Output Urine Total 800 ml Medications Current Medications Medications Dose Ordered Sig/Jayme Route Start Time Stop Time Status Last Admin Dose Admin Levofloxacin/ Dextrose 100 ml @ 100 mls/hr DAILY IV 06/22/24 10:00 06/22/24 11:33 100 MLS/HR Temazepam 15 mg QHSP PRN PO 06/21/24 19:00 06/22/24 21:12 15 MG Ondansetron HCl 4 mg Q4HP PRN IV 06/21/24 19:00 Acetaminophen 650 mg Q6HP PRN PO 06/21/24 19:00 Vancomycin HCl 0 ml @ 0 mls/hr UD IV 06/22/24 12:00 Levetiracetam 500 mg BID PO 06/22/24 22:00 Cancel Levetiracetam 100 ml @ 400 mls/hr BID IV 06/22/24 10:00 06/23/24 10:43 400 MLS/HR Vancomycin HCl 250 ml @ 200 mls/hr Q12H IV 06/22/24 10:00 06/23/24 09:17 200 MLS/HR Lorazepam 1 mg Q5MINP PRN IV 06/22/24 13:00 06/23/24 11:02 1 MG Lorazepam 1 mg ONCE PRN IV 06/22/24 21:15 Hydromorphone HCl 2 mg Q4HPRN PRN IV 06/23/24 08:45 06/23/24 09:17 2 MG Laboratory Results Laboratory Tests 06/22/24 05:35 Microbiology Microbiology Date/Time Source Procedure Growth Status 06/21/24 19:30 Blood Blood Culture - Preliminary NO GROWTH AFTER 24 HOURS OF INCUBATION. Resulted Labs and/or images reviewed: Labs reviewed by me, Image(s) reviewed by me Assessment/Plan Assessment/Plan Cellulitis left face: Vancomycin Levaquin, failed outpatient p.o. antibiotics History of seizures: Keppra, Ativan Status epilepticus with atypical features, neurology Dr. Aguayo recommended transfer to [place] for continuous EEG monitoring MRI brain pending CT head negative Maxillofacial CT shows left periorbital swelling Recurrent seizures: Patient had four seizures this morning and now in postictal state; Neuro consult for Dr. Aguayo appreciated Dr. Aguayo advised transfer to [place] for continuous EEG monitoring Orders placed for transfer to [facility] discussed with: Patient My Orders Orders - SUMMER MCDANIEL MD Procedure Category Date Status Time * Neurology Consult CONS 06/22/24 Transmitted 12:41 Lorazepam 2mg/Ml Inj PHA 06/22/24 In Process (Ativan Inj) 13:00 Hydromorphone PHA 06/23/24 In Process Injection (Dilaudid 08:45 Date of Service: Jun 23, 2024 Billing Provider: SUMMER MCDANIEL MD Common Visit Codes: [id number] INP/OBS CARE(HIGH) SUMMER MCDANIEL MD Jun 23, 2024 11:11
--- NOTE | 2024-06-23 11:18 | DVHDS2 ---
Discharge Summary Date of Admission Jun 21, 2024 at 18:55 Date of Discharge: Jun 23, 2024 Admitting Diagnosis Left facial swelling and seizures Wounds: None Labs/Diagnostic Data: Laboratory Results Test 06/22/24 14:50 06/22/24 05:35 06/21/24 19:30 Prolactin 9.16 ng/mL (2.8-29.2) White Blood Count 6.8 10^3/uL (4.4-10.8) Red Blood Count 3.61 10^6/uL (4.0-5.20) Hemoglobin 11.3 g/dL (12.2-16.2) Hematocrit 34.4 % (36.0-46.0) Mean Corpuscular Volume 95.5 fL (80.0-100.0) Mean Corpuscular Hemoglobin 31.4 pg (28.0-32.0) Mean Corpuscular Hemoglobin Concent 32.9 g/dL (32.0-36.0) Red Cell Distribution Width 13.5 % (11.8-14.3) Platelet Count 276 10^3/uL (140-450) Mean Platelet Volume 8.9 fL (6.9-10.8) Neutrophils (%) (Auto) 59.4 % (37.0-80.0) Lymphocytes (%) (Auto) 28.5 % (10.0-50.0) Monocytes (%) (Auto) 8.7 % (0.0-12.0) Eosinophils (%) (Auto) 2.9 % (0.0-7.0) Basophils (%) (Auto) 0.5 % (0.0-2.0) Neutrophils # (Auto) 4.0 10 ^3/uL (1.6-8.6) Lymphocytes # (Auto) 1.9 10 ^3/uL (0.4-5.4) Monocytes # (Auto) 0.6 10 ^3/uL (0-1.3) Eosinophils # (Auto) 0.2 10 ^3/uL (0-0.8) Basophils # (Auto) 0 10 ^3/uL (0-0.2) Nucleated Red Blood Cells 0.0 % Sodium Level 142 mmol/L (136-145) Potassium Level 3.7 mmol/L (3.5-5.1) Chloride Level 109 mmol/L (98-107) Carbon Dioxide Level 24 mmol/L (20-31) Anion Gap 9 (5-15) Blood Urea Nitrogen 6 mg/dL (9-23) Creatinine 0.74 mg/dL (0.550-1.02) Glomerular Filtration Rate Calc 106 mL/min (>90) BUN/Creatinine Ratio 8.1 (10.0-20.0) Serum Glucose 99 mg/dL (74-106) Calcium Level 8.9 mg/dL (8.7-10.4) Lactic Acid Level 0.9 mmol/L (0.4-2.0) Total Bilirubin 0.4 mg/dL (0.2-1.0) Aspartate Amino Transferase (AST) 16 U/L (13-40) Alanine Aminotransferase (ALT) 20 U/L (7-40) Alkaline Phosphatase 66 U/L (46-116) Total Protein 6.9 g/dL (5.7-8.2) Albumin 4.3 g/dL (3.2-4.8) Other Laboratory Tests 06/22/24 05:35 Brief Hx & Hospital Course: 38-year-old female with a history of seizures came in complaining of left-sided facial swelling willing found to have cellulitis of the left face treated with the vancomycin and Levaquin. She tried p.o. antibiotics which failed. CT head was negative . Maxillofacial CT showed left periorbital swelling. Seen by Neurology Dr. Aguayo advised transfer to [place] through [place] for continuous EEG monitoring patient has had recurrent seizures while in the hospital and controlled with the Keppra and Ativan. Per neurology patient has status epilepticus with a atypical features MRI brain pending at the time of transfer. General condition poor but stable at the time of transfer Consults/Reason for consult neurology Dr. Aguayo Operations or Procedures CT head MRI Brain pending Condition at Discharge: Poor Final Diagnosis/Problems List Cellulitis left face: Vancomycin Levaquin, failed outpatient p.o. antibiotics History of seizures: Keppra, Ativan Status epilepticus with atypical features, neurology Dr. Aguayo recommended transfer to [place] for continuous EEG monitoring MRI brain pending CT head negative Maxillofacial CT shows left periorbital swelling Recurrent seizures: Patient had four seizures this morning and now in postictal state; Neuro consult for Dr. Aguayo appreciated Discharge Disposition: Acute Care Facility Discharge Instruct/Medications Diet: Regular Activity: Bed rest Follow Up/Referral: Per receiving hospital Medications: see list 39 (time Taken For discharge summary 39 minutes) Discharge Statement: "Patient was advised to return to the ER or call 911 if any headaches, dizziness, shortness of breath, chest pain, abdominal pain, bleeding, fevers, or worsening of medical condition. Patient was counseled about treatment plan, medications, possible side effects, patientverbalized understanding. All questions were answered to the best of my ability. This discharge took greater then 30 minutes in planning, reviewing documentation, counseling the patient, and discussing with other team members." ASSESSMENT ASSESSMENT Hospital Course Marginal improvement Assessment Cellulitis left face: Vancomycin Levaquin, failed outpatient p.o. antibiotics History of seizures: Lila Martino Status epilepticus with atypical features, neurology Dr. Aguayo recommended transfer to [place] for continuous EEG monitoring MRI brain pending CT head negative Maxillofacial CT shows left periorbital swelling Recurrent seizures: Patient had four seizures this morning and now in postictal state; Neuro consult for Dr. Aguayo appreciated Date of Service: Jun 23, 2024 Billing Provider: SUMMER MCDANIEL MD Common Visit Codes: [id number] DISCH DAY >30min SUMMER MCDANIEL MD Jun 23, 2024 11:17
--- NOTE | 2024-06-23 12:14 | DVHPN2 ---
Progress Note - Dictate Date Seen: Jun 23, 2024 Medical Necessity Reason Pt with a Central, PICC or Fol: No Subjective Ms. Wen is a 38 years old female with a history of obesity, asthma, seizure disorder, she came to the [facility] on 06/21/2024 with a chief company of progressive left facial swelling, I have seen and examined the patient, discussed with her nurse, other medical staff and Dr. Doan She was sedated with Ativan because of seizure activity CBC, 06/21/24: Unremarkable CMP, : Unremarkable Prolactin, 06/22/2024 14 50: 9.16 CT head, 06/22/2024: No acute intracranial abnormality. vital signs Vital Sign Date Time Temp Pulse Resp B/P (MAP) Pulse Ox O2 Delivery O2 Flow Rate FiO2 06/23/24 11:10 97.9 103 17 110/64 (79) 99 97.9 06/22/24 20:00 Nasal Cannula* 2 28 Total Intake and Output 06/22/24 06/22/24 06/23/24 15:00 23:00 07:00 Intake Total 450 ml 0 ml 0 ml Output Total 600 ml 200 ml Balance 450 ml -600 ml -200 ml medications Current Medications Medications Dose Ordered Sig/Jayme Route Start Time Stop Time Status Last Admin Dose Admin Levofloxacin/ Dextrose 100 ml @ 100 mls/hr DAILY IV 06/22/24 10:00 06/23/24 11:05 100 MLS/HR Temazepam 15 mg QHSP PRN PO 06/21/24 19:00 06/22/24 21:12 15 MG Ondansetron HCl 4 mg Q4HP PRN IV 06/21/24 19:00 Acetaminophen 650 mg Q6HP PRN PO 06/21/24 19:00 Vancomycin HCl 0 ml @ 0 mls/hr UD IV 06/22/24 12:00 Levetiracetam 500 mg BID PO 06/22/24 22:00 Cancel Levetiracetam 100 ml @ 400 mls/hr BID IV 06/22/24 10:00 06/23/24 10:43 400 MLS/HR Vancomycin HCl 250 ml @ 200 mls/hr Q12H IV 06/22/24 10:00 06/23/24 09:17 200 MLS/HR Lorazepam 1 mg Q5MINP PRN IV 06/22/24 13:00 06/23/24 11:02 1 MG Lorazepam 1 mg ONCE PRN IV 06/22/24 21:15 Hydromorphone HCl 2 mg Q4HPRN PRN IV 06/23/24 08:45 06/23/24 09:17 2 MG objective General: the patient is well developed and nourished. No acute distress. MENTAL STATUS: Subjective SPEECH, LANGUAGE, HIGHER CORTICAL FUNCTION: No aphasia, voice is weak and slightly slurry CRANIAL NERVES: Pupils are equal, round and reactive. EOMs full and conjugate. Facial sensation intact in all three divisions bilaterally. Mandibular strength intact. Facial muscles symmetrical and strength intact. . SENSATION: Sensation to touch and pinprick is okay MOTOR: Normal tone in the upper and lower extremity. Normal muscle bulk. No fasciculations. No abnormal movements or posturing. Muscle strength of the major groups in the extremities is no less than 4/5. REFLEXES: Deep tendon reflexes are symmetrical. No pathological reflexes. CEREBELLAR/COORDINATION: Deferred GAIT/STATION: Deferred laboratory and microbiology Laboratory Tests 06/22/24 05:35 Test 06/22/24 05:35 Range/Units Serum Glucose 99 74-106 mg/dL Problem List Frequent generalized seizure activity, with atypical feature, the one I witnessed was not epileptic seizure Status epileptics with atypical feature Assessment/Plan Monitoring Supportive treatment Telemetry EEG (she refused) MR brain Ativan for seizure breakthrough Keppra 500 mg b.i.d. for the time being Transfer to [facility] for continuous video EEG monitoring More recommendation per clinical course This medical document was created using an electronic medical record system with [employer] dictation system. Although this document has been carefully reviewed, there may still be some phonetic and typographical errors. These areas are purely typographical due to imperfections of the software programs, and do not reflect any compromise in the patient's medical care. Prognosis poor Plan discussed with: Other NAYAN RIOJAS MD Jun 23, 2024 12:14
[2024-06-24] VITALS (9 sets, daily range): BP systolic 104–122; BP diastolic 60–81; PULSE 70–102; RESP 16–20; TEMP 97.5–98.5; O2SAT 96–100
[2024-06-24 07:34] LABS: Basophils # (auto) 0.1 10 ^3/uL (0-0.2); Basophils % (auto) 0.9 % (0.0-2.0); Eosinophils # (auto) 0.1 10 ^3/uL (0-0.8); Eosinophils % (auto) 1.4 % (0.0-7.0); Hematocrit 34.5 % (36.0-46.0); Hemoglobin 11.8 g/dL (12.2-16.2); Lymphocytes # (auto) 2.3 10 ^3/uL (0.4-5.4); Lymphocytes % (auto) 29.9 % (10.0-50.0); Mean Corpuscular Hemoglobin 32.4 pg (28.0-32.0); Mean Corpuscular Hgb Conc. 34.2 g/dL (32.0-36.0); Mean Corpuscular Volume 94.6 fL (80.0-100.0); Monocytes # (auto) 0.6 10 ^3/uL (0-1.3); Monocytes % (auto) 8.3 % (0.0-12.0); Neutrophils # (auto) 4.5 10 ^3/uL (1.6-8.6); Neutrophils % (auto) 59.5 % (37.0-80.0); Nucleated Red Blood Cells % 0.1 %; Platelet Count (auto) 292 10^3/uL (140-450); Red Blood Cells 3.65 10^6/uL (4.0-5.20); Red Cell Distribution Width 13.1 % (11.8-14.3); White Blood Cell 7.7 10^3/uL (4.4-10.8)
[2024-06-24 07:42] LABS: Anion Gap 9 (5-15); Calcium 9.4 mg/dL (8.7-10.4); Carbon Dioxide 25 mmol/L (20-31); Chloride 104 mmol/L (98-107); Potassium 3.7 mmol/L (3.5-5.1); Sodium 138 mmol/L (136-145)
[2024-06-24 07:48] LABS: BUN/Creatinine Ratio 8.2 (10.0-20.0); Glucose 103 mg/dL (74-106)
[2024-06-24 07:50] LABS: Blood Urea Nitrogen 6 mg/dL (9-23)
--- NOTE | 2024-06-24 09:48 | DVHPN2 ---
Reviewed: Care Plan, H&P, Labs, Medications, Previous Orders, Radiology Changes from previous H/P or p: No Changes Objective Vitals Vital Signs Date Time Temp Pulse Resp B/P (MAP) Pulse Ox O2 Delivery O2 Flow Rate FiO2 06/24/24 07:07 98.2 80 20 119/78 (92) 100 98.2 06/23/24 20:00 Nasal Cannula* 2 28 Intake/Output Intake and Output 06/24/24 07:00 Intake Total 1554 ml Output Total 500 ml Balance 1054 ml Intake Oral 754 ml IV Total 800 ml Output Urine Total 500 ml # Voids 4 Medications Current Medications Medications Dose Ordered Sig/Jayme Route Start Time Stop Time Status Last Admin Dose Admin Levofloxacin/ Dextrose 100 ml @ 100 mls/hr DAILY IV 06/22/24 10:00 06/23/24 11:05 100 MLS/HR Temazepam 15 mg QHSP PRN PO 06/21/24 19:00 06/22/24 21:12 15 MG Ondansetron HCl 4 mg Q4HP PRN IV 06/21/24 19:00 Acetaminophen 650 mg Q6HP PRN PO 06/21/24 19:00 Vancomycin HCl 0 ml @ 0 mls/hr UD IV 06/22/24 12:00 Levetiracetam 500 mg BID PO 06/22/24 22:00 Cancel Levetiracetam 100 ml @ 400 mls/hr BID IV 06/22/24 10:00 06/23/24 21:36 400 MLS/HR Vancomycin HCl 250 ml @ 200 mls/hr Q12H IV 06/22/24 10:00 06/23/24 21:22 200 MLS/HR Lorazepam 1 mg Q5MINP PRN IV 06/22/24 13:00 06/23/24 19:18 1 MG Lorazepam 1 mg ONCE PRN IV 06/22/24 21:15 Hydromorphone HCl 2 mg Q4HPRN PRN IV 06/23/24 08:45 06/24/24 07:05 2 MG Laboratory Results Laboratory Tests 06/24/24 06:55 Chemistry Test 06/24/24 06:55 Calcium Level 9.4 mg/dL (8.7-10.4) Microbiology Microbiology Date/Time Source Procedure Growth Status 06/21/24 19:30 Blood Blood Culture - Preliminary NO GROWTH AFTER 48 HOURS OF INCUBATION. Resulted Labs and/or images reviewed: Labs reviewed by me, Image(s) reviewed by me Assessment/Plan Assessment/Plan Cellulitis left face: Vancomycin Levaquin, failed outpatient p.o. antibiotics History of seizures: Keppra, Ativan Status epilepticus with atypical features, neurology Dr. Aguayo recommended transfer to [place] for continuous EEG monitoring MRI brain pending CT head negative Maxillofacial CT shows left periorbital swelling Recurrent seizures: Patient had four seizures this morning and now in postictal state; Neuro consult for Dr. Aguayo appreciated Dr. Aguayo advised transfer to [place] for continuous EEG monitoring Orders placed for transfer to [facility] working with the [place] for transfer Examined today Per RN Shelbie Patient is refusing Keppra, educated about possible seizure breakthrough. Plan discussed with: Patient My Orders Orders - SUMMER MCDANIEL MD Procedure Category Date Status Time * Recruiting Operations Consultant CONS 06/23/24 Transmitted Consult Discharge DISCHARGE 06/23/24 Transmitted 11:12 Date of Service: Jun 24, 2024 Billing Provider: SUMMER MCDANIEL MD Common Visit Codes: [id number] INP/OBS CARE(HIGH) SUMMER MCDANIEL MD Jun 24, 2024 09:48
[2024-06-24] MEDS: LORazepam 2MG/ML-1ML VIAL IV PRN (12:56)
[2024-06-24] MEDS: NALOXONE HCL 0.4 MG/ML VIAL ONE (14:14)
[2024-06-24] MEDS: LORazepam 2MG/ML-1ML VIAL IV ONE (14:30)
[2024-06-24] MEDS: levETIRAcetam 1000 mg/100ml 100 ML IV ONE (14:30)
--- NOTE | 2024-06-24 14:34 | DVH ---
EXAM: MRI BRAIN HEAD WO CONTRAST HISTORY: sz COMPARISON: Radiograph dated 06/22/2024 TECHNIQUE: MRI was performed utilizing multiple appropriate imaging planes and pulse sequences. FINDINGS: SUPRATENTORIAL REGION: No evidence for acute ischemia or intracranial hemorrhage. Suggestion of righ t mesial temporal sclerosis POSTERIOR FOSSA: Unremarkable. BRAINSTEM: Unremarkable. SELLAR/SUPRASELLAR REGION: Unremarkable. VENTRICLES, CISTERNS, SULCI: Age-appropriate. ORBITS: Unremarkable. PARANASAL SINUSES: Unremarkable. MASTOID AIR CELLS: Unremarkable. VASCULATURE: Unremarkable. BONES/ SOFT TISSUES: A 0.9 cm subcutaneous T2 hyperintense and T1 hypointense structure noted in the left parietal scalp with underlying subcutaneous edema superficial to temporalis muscle. No suspicio us osseous abnormality. OTHER: None. IMPRESSION: 1. No acute intracranial process identified. 2. Suggestion right mesial temporal sclerosis. No evidence for focal cortical dysplasia, or doshi kriss er heterotopia . 3. Indeterminate subcentimeter left parietal scalp subcutaneous lesion with underlying subcutaneous e roderick. This may represent an infected sebaceous cyst or other etiologies. Recommend clinical correlat ion.
--- NOTE | 2024-06-24 20:25 | RESUS ---
CODE ASSIST ASSESSSMENT Initial Information Code Assist Date: Jun 24, 2024 Code Assist Time: 14:00 [facility] of Arrest: [facility] Room # 292-A Provider Name Dr Nayak Time Notified: 14:00 Crash Cart Opened and Supplies: No Situation Staff concerned/worried, speci: Change LOC, Seizures Background Background: Patient admitted to [facility] on 06/21 for facial celluilitis. History of Seizures and asthma Assessment Temperature (Fahrenheit): 97.9 Blood Pressure Systolic: 122 Blood Pressure Diastolic: 76 Respiratory Rate: 16 O2 Sat by Pulse Oximetry: 100 Assessment comment: Patient with tremoring noted of upper body and nystagmus Recommendations/Interventions Medications and Responses #1: Medication Time: 14:11 ADULT Medications Given: Ativan 1 mg IV MRx1 Route of Administration: IV Heart Rate: 116 EKG Rhythm: Sinus Rhythm Blood Pressure Systolic: 155 Blood Pressure Diastolic: 89 Respiratory Rate: 18 O2 Sat by Pulse Oximetry: 100 Medications and Responses #2: Medication Time: 14:24 ADULT Medications Given: Ativan 1 mg IV MRx1 Route of Administration: IV Heart Rate: 116 EKG Rhythm: Sinus Rhythm Procedures: Accu check Outcome Outcome: Problem Resolved Follow up Report Follow up Report Patient continued to have seizure symptoms with nystagmus noted and mild shaking of upper body after first dose of Ativan and then started following commands and became more alert. Dr Nayak ordered Prolactin levels which were drawn - no additional interventions ordered. Team Members Team Members Yue RN, Dr Nayak, Kurtis REYES, Skye Gomez RN Jun 24, 2024 20:25
[2024-06-24] MEDS: ACETAMINOPHEN 325 MG TAB PO PRN (22:55)
--- NOTE | 2024-06-24 23:54 | DVHPN2 ---
Progress Note - Dictate Date Seen: Jun 24, 2024 Medical Necessity Reason Pt with a Central, PICC or Fol: No Subjective Ms. Wen is a 38 years old female with a history of obesity, asthma, seizure disorder, she came to the [facility] on 06/21/2024 with a chief company of progressive left facial swelling, I have seen and examined the patient, discussed with her nurse and her sitter She keeps having seizure, she was had oriented 10 seizure since 6:00 p.m. today. According to nurse, her behavior was childish, and she was able to ask questions right after seizure was over [place] would not accept her secondary to financial issue, the patient refused to be transferred to a [facility] CBC, 06/21/24: Unremarkable CMP, : Unremarkable Prolactin, 06/22/2024 14 50: 9.16 CT head, 06/22/2024: No acute intracranial abnormality. MRI head, 06/24/2024: 1. No acute intracranial process identified. 2. Suggestion right mesial temporal sclerosis. No evidence for focal cortical dysplasia, or doshi matter heterotopia. 3. Indeterminate subcentimeter left parietal scalp subcutaneous lesion with underlying subcutaneous edema. This may represent an infected sebaceous cyst or other etiologies. Recommend clinical correlation vital signs Vital Sign Date Time Temp Pulse Resp B/P (MAP) Pulse Ox O2 Delivery O2 Flow Rate FiO2 06/24/24 21:00 97.5 96 16 122/76 (91) 99 97.5 06/24/24 20:00 Nasal Cannula* 2 28 Total Intake and Output 06/23/24 06/23/24 06/24/24 15:00 23:00 07:00 Intake Total 450 ml 754 ml 350 ml Output Total 500 ml Balance 450 ml 254 ml 350 ml medications Current Medications Medications Dose Ordered Sig/Jayme Route Start Time Stop Time Status Last Admin Dose Admin Levofloxacin/ Dextrose 100 ml @ 100 mls/hr DAILY IV 06/22/24 10:00 06/24/24 16:29 100 MLS/HR Temazepam 15 mg QHSP PRN PO 06/21/24 19:00 06/22/24 21:12 15 MG Ondansetron HCl 4 mg Q4HP PRN IV 06/21/24 19:00 Acetaminophen 650 mg Q6HP PRN PO 06/21/24 19:00 06/24/24 22:55 650 MG Vancomycin HCl 0 ml @ 0 mls/hr UD IV 06/22/24 12:00 Levetiracetam 500 mg BID PO 06/22/24 22:00 Cancel Levetiracetam 100 ml @ 400 mls/hr BID IV 06/22/24 10:00 06/24/24 21:48 400 MLS/HR Vancomycin HCl 250 ml @ 200 mls/hr Q12H IV 06/22/24 10:00 06/24/24 22:52 200 MLS/HR Lorazepam 1 mg Q5MINP PRN IV 06/22/24 13:00 06/24/24 19:10 1 MG Lorazepam 1 mg ONCE PRN IV 06/22/24 21:15 06/24/24 12:56 1 MG Hydromorphone HCl 2 mg Q4HPRN PRN IV 06/23/24 08:45 06/24/24 20:03 2 MG objective General: the patient is well developed and nourished. No acute distress. MENTAL STATUS: Subjective SPEECH, LANGUAGE, HIGHER CORTICAL FUNCTION: No aphasia, voice is weak and slightly slurry CRANIAL NERVES: Pupils are equal, round and reactive. EOMs full and conjugate. Facial sensation intact in all three divisions bilaterally. Mandibular strength intact. Facial muscles symmetrical and strength intact. . SENSATION: Sensation to touch and pinprick is okay MOTOR: Normal tone in the upper and lower extremity. Normal muscle bulk. No fasciculations. No abnormal movements or posturing. Muscle strength of the major groups in the extremities is no less than 4/5. REFLEXES: Deep tendon reflexes are symmetrical. No pathological reflexes. CEREBELLAR/COORDINATION: Deferred GAIT/STATION: Deferred laboratory and microbiology Laboratory Tests 06/24/24 06:55 Test 06/24/24 06:55 Range/Units Serum Glucose 103 74-106 mg/dL Problem List Frequent generalized seizure activity, with atypical feature, the one I witnessed was not epileptic seizure Status epileptics with atypical feature Assessment/Plan Monitoring Supportive treatment Telemetry EEG (she refused) Ativan for seizure breakthrough D/C Keppra 500 mg b.i.d. Transfer to a higher level care for continuous video EEG monitoring More recommendation per clinical course This medical document was created using an electronic medical record system with [employer] dictation system. Although this document has been carefully reviewed, there may still be some phonetic and typographical errors. These areas are purely typographical due to imperfections of the software programs, and do not reflect any compromise in the patient's medical care. Prognosis poor Dietary Evaluation Review Recommendations by RD: Dietary education by RD, Protein Supplementation Comments: 1) Initiate Ensure Enlive bid d/t decreased appetite. Encourage optimal PO intake 2) Refer to outpatient RD for weight management 3) Follow-up with neurology 4) Continue to monitor I&O, labs, and skin integrity Expected Outcomes/Goals: 1) appetite and labs to improve 2) cellulitis to improve 3) f/u in 3-5 days Plan discussed with: Other NAYAN RIOJAS MD Jun 24, 2024 23:54
[2024-06-25] VITALS (50 sets, daily range): BP systolic 100–150; BP diastolic 58–97; PULSE 65–93; RESP 16–22; TEMP 97.3–99.1; O2SAT 91–100
[2024-06-25] MEDS: ONDANSETRON HCL 4 MG/2 ML VIAL IV PRN (02:16)
--- NOTE | 2024-06-25 08:34 | DVHPN2 ---
Reviewed: Care Plan, H&P, Labs, Medications, Previous Orders, Radiology Changes from previous H/P or p: No Changes Objective Vitals Vital Signs Date Time Temp Pulse Resp B/P (MAP) Pulse Ox O2 Delivery O2 Flow Rate FiO2 06/25/24 04:50 99.1 78 16 100/58 (72) 91 99.1 06/24/24 20:00 Nasal Cannula* 2 28 Intake/Output Intake and Output 06/25/24 06:59 Intake Total 1820 ml Balance 1820 ml Intake Oral 1020 ml IV Total 800 ml # Voids 7 Medications Current Medications Medications Dose Ordered Sig/Jayme Route Start Time Stop Time Status Last Admin Dose Admin Levofloxacin/ Dextrose 100 ml @ 100 mls/hr DAILY IV 06/22/24 10:00 06/24/24 16:29 100 MLS/HR Temazepam 15 mg QHSP PRN PO 06/21/24 19:00 06/22/24 21:12 15 MG Ondansetron HCl 4 mg Q4HP PRN IV 06/21/24 19:00 06/25/24 02:16 4 MG Acetaminophen 650 mg Q6HP PRN PO 06/21/24 19:00 06/24/24 22:55 650 MG Vancomycin HCl 0 ml @ 0 mls/hr UD IV 06/22/24 12:00 Levetiracetam 500 mg BID PO 06/22/24 22:00 Cancel Vancomycin HCl 250 ml @ 200 mls/hr Q12H IV 06/22/24 10:00 06/24/24 22:52 200 MLS/HR Lorazepam 1 mg Q5MINP PRN IV 06/22/24 13:00 06/25/24 05:10 1 MG Lorazepam 1 mg ONCE PRN IV 06/22/24 21:15 06/24/24 12:56 1 MG Hydromorphone HCl 2 mg Q4HPRN PRN IV 06/23/24 08:45 06/25/24 02:18 2 MG Laboratory Results Laboratory Tests 06/24/24 06:55 Chemistry Test 06/24/24 14:18 Magnesium Level 1.8 mg/dL (1.6-2.6) Microbiology Microbiology Date/Time Source Procedure Growth Status 06/21/24 19:30 Blood Blood Culture - Preliminary NO GROWTH AFTER 72 HOURS OF INCUBATION. Resulted Labs and/or images reviewed: Labs reviewed by me, Image(s) reviewed by me Assessment/Plan Assessment/Plan Cellulitis left face: Vancomycin Levaquin, failed outpatient p.o. antibiotics History of seizures: Keppra, Ativan Status epilepticus with atypical features, neurology Dr. Aguayo recommended transfer to [place] for continuous EEG monitoring MRI brain pending CT head negative Maxillofacial CT shows left periorbital swelling Recurrent seizures: Patient had four seizures this morning and now in postictal state; Neuro consult for Dr. Aguayo appreciated Dr. Aguayo advised transfer to [place] for continuous EEG monitoring Orders placed for transfer to [place] [facility] professional working with the [place] for transfer Examined today AMY Medina at bedside Patient is refusing Keppra, educated about possible seizure breakthrough. Keppra discontinued by Dr. Aguayo, patient refused EEG, patient refused transfer to [place] Plan discussed with: Patient Date of Service: Jun 25, 2024 Billing Provider: SUMMER MCDANIEL MD Common Visit Codes: [id number] INP/OBS CARE(HIGH) SUMMER MCDANIEL MD Jun 25, 2024 08:34
[2024-06-25 10:20] LABS: Basophils # (auto) 0 10 ^3/uL (0-0.2); Basophils % (auto) 0.5 % (0.0-2.0); Eosinophils # (auto) 0.1 10 ^3/uL (0-0.8); Eosinophils % (auto) 0.6 % (0.0-7.0); Hematocrit 40.2 % (36.0-46.0); Hemoglobin 13.4 g/dL (12.2-16.2); Lymphocytes # (auto) 1.4 10 ^3/uL (0.4-5.4); Lymphocytes % (auto) 17.4 % (10.0-50.0); Mean Corpuscular Hemoglobin 31.4 pg (28.0-32.0); Mean Corpuscular Hgb Conc. 33.2 g/dL (32.0-36.0); Mean Corpuscular Volume 94.4 fL (80.0-100.0); Monocytes # (auto) 0.5 10 ^3/uL (0-1.3); Monocytes % (auto) 6.7 % (0.0-12.0); Neutrophils % (auto) 74.8 % (37.0-80.0); Platelet Count (auto) 229 10^3/uL (140-450); Red Blood Cells 4.26 10^6/uL (4.0-5.20); Red Cell Distribution Width 13.2 % (11.8-14.3)
[2024-06-25] MEDS ORDERED: levETIRAcetam 1000 mg/100ml 100 ML IV ONE (11:45)
[2024-06-25] MEDS: levETIRAcetam 1000 mg/100ml 100 ML IV ONE ×2 (11:54→13:27)
[2024-06-25] MEDS: MIDAZOLAM DRIP 50 mg/50mL 50 ML IV ONE (13:03)
[2024-06-25] MEDS: fentaNYL Drip 2500mCg/250mlNS 0 ML IV ONE (13:03)
[2024-06-25] MEDS: ETOMIDATE (2MG/ML) 20ML VIAL IV ONE (13:03)
[2024-06-25] MEDS: ROCURONIUM 10MG/ML 10ML VIAL IV ONE (13:04)
[2024-06-25] MEDS: PROPOFOL 100 ML IV ONE (13:04)
[2024-06-25] MEDS: NOREPINEPHRINE 8 MG/250ML KIT 250 ML IV ONE (13:05)
[2024-06-25] MEDS: LORazepam 2MG/ML-1ML VIAL ONE (13:08)
--- NOTE | 2024-06-25 13:09 | DVHINCON2 ---
Date of service: Jun 25, 2024 Referring Physician Matthew Mccain Neuro Note # Demographics Consult Type: General Neurology Patient Location: Inpatient First Name: Luis Last Name: Behzad Date of : 1985 Age: 38 Gender: Female Facility: [facility] Time of Initial Page ( Time): 06/25/2024 12:32 Time of Return Call ([place] Time): 06/25/2024 12:32 # HPI History: 38yo F is having recurrent events concerning for seizures. 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 pt was placed on keppra on arrival. neuro recommended cEEG, has been requested to transfer to [place] who has accepted her, but the patient has refused to be transferred. there was some discussion from the patient about leaving AMA, but has ultimately stayed. She has continue to have recurrent events, currently getting ativan multiple times per day on camera eval pt is having another event. has been getting doses of ativan at 1mg per dose, event has not stopped # Exam Additional Neurologic Exam: on beam onto the camera, pt having another event. pulled to her left by nursing staff. They state her eyes are partially open, blinking in rhythm with her extremity tonic-clonic type movements. event appears very concerning for epileptic seizure # PMH-FH-SH Past Medical History: - seizure # Assessment Impression: - Seizure # Plan Thrombolytic/Intervention: NOT IV Thrombolysis or IA Intervention candidate Diagnostic Test: STAT cEEG Medication: - fosphenytoin 20 PE/kg IV load 4mg ativan now Other: - If patient has any neurological deterioration please call me back immediately - seizure precautions - I have discussed my recommendations with the referring provider Additional Recommendations: local doc planning to intubate the patient. recommend sedation with propofol at a rate of 40mcg/kg/min until EEG monitoring can be initiated Disposition: consider transfer to tertiary facility for higher level neurological care # Logistics Attestation of consult completion: The patient is located at: [facility]. Facility staff participated in the visit. I performed this telemedicine visit from my offsite office utilizing interactive 2 way audio and visual telecommunication technology. Total time spent in telemedicine encounter: I spent 10 minutes reviewing clinical data and/or imaging, obtaining history, examining the patient, communicating with the onsite care team, and in preparation of this report. # Demographics First Name: Luis Last Name: Behzad Facility: [facility] Family History: Patient reports no known family medical history. Allergies: Coded Allergies: Penicillins (Verified Allergy, Unknown, 03/14/24) Home Meds Active Scripts Hydrocodone-Acetaminophen (Hydrocodone Bitartrate/AC 5-325 mg) 1 Tab Tab, 1 TAB PO Q8HP PRN for 7 Days, #21 TAB Prov:EFREM OSEGUERA MD 06/20/24 Clindamycin Hcl (Clindamycin Hcl) 300 Mg Cap, 1 CAP PO TID, #21 CAP Prov:EFREM OSEGUERA MD 06/20/24 Current Medications Current Medications Medications (Trade) Dose Ordered Sig/Jayme Route PRN Reason Start Time Stop Time Status Last Admin Levetiracetam 100 ml @ 400 mls/hr BID IV 06/25/24 22:00 Vancomycin HCl 250 ml @ 200 mls/hr Q10H IV 06/25/24 20:00 Vital Signs Vital Signs Date Time Temp Pulse Resp B/P (MAP) Pulse Ox O2 Delivery O2 Flow Rate FiO2 06/25/24 10:05 82 18 117/87 06/25/24 04:50 99.1 91 99.1 06/24/24 20:00 Nasal Cannula* 2 28 Labs/Diagnostic Data Labs Test 06/25/24 10:00 06/24/24 21:31 06/24/24 14:18 06/24/24 14:04 Range/Units White Blood Count 8.0 4.4-10.8 10^3/uL Red Blood Count 4.26 4.0-5.20 10^6/uL Hemoglobin 13.4 12.2-16.2 g/dL Hematocrit 40.2 # 36.0-46.0 % Mean Corpuscular Volume 94.4 80.0-100.0 fL Mean Corpuscular Hemoglobin 31.4 28.0-32.0 pg Mean Corpuscular Hemoglobin Concent 33.2 32.0-36.0 g/dL Red Cell Distribution Width 13.2 11.8-14.3 % Platelet Count 229 140-450 10^3/uL Mean Platelet Volume 8.8 6.9-10.8 fL Neutrophils (%) (Auto) 74.8 37.0-80.0 % Lymphocytes (%) (Auto) 17.4 10.0-50.0 % Monocytes (%) (Auto) 6.7 0.0-12.0 % Eosinophils (%) (Auto) 0.6 0.0-7.0 % Basophils (%) (Auto) 0.5 0.0-2.0 % Neutrophils # (Auto) 6.0 1.6-8.6 10 ^3/uL Lymphocytes # (Auto) 1.4 0.4-5.4 10 ^3/uL Monocytes # (Auto) 0.5 0-1.3 10 ^3/uL Eosinophils # (Auto) 0.1 0-0.8 10 ^3/uL Basophils # (Auto) 0 0-0.2 10 ^3/uL Nucleated Red Blood Cells 0.0 % Creatinine 0.80 0.550-1.02 mg/dL Glomerular Filtration Rate Calc 97 >90 mL/min Vancomycin Level Trough 9.5 5-10 ug/mL Magnesium Level 1.8 1.6-2.6 mg/dL POC Glucose 114 H 70-106 mg/dl Test 06/24/24 06:55 06/21/24 19:30 Range/Units Sodium Level 138 136-145 mmol/L Potassium Level 3.7 3.5-5.1 mmol/L Chloride Level 104 98-107 mmol/L Carbon Dioxide Level 25 20-31 mmol/L Anion Gap 9 5-15 Blood Urea Nitrogen 6 L 9-23 mg/dL BUN/Creatinine Ratio 8.2 L 10.0-20.0 Serum Glucose 103 74-106 mg/dL Calcium Level 9.4 8.7-10.4 mg/dL Lactic Acid Level 0.9 0.4-2.0 mmol/L Total Bilirubin 0.4 0.2-1.0 mg/dL Aspartate Amino Transferase (AST) 16 13-40 U/L Alanine Aminotransferase (ALT) 20 7-40 U/L Alkaline Phosphatase 66 46-116 U/L Total Protein 6.9 5.7-8.2 g/dL Albumin 4.3 3.2-4.8 g/dL Microbiology Date/Time Source Procedure Growth Status 06/21/24 19:30 Blood Blood Culture - Preliminary NO GROWTH AFTER 72 HOURS OF INCUBATION. Resulted Plan discussed with: TANNER Servin DO Jun 25, 2024 13:09
[2024-06-25] MEDS: LORazepam 2MG/ML-1ML VIAL IV ONE (13:15)
--- NOTE | 2024-06-25 14:26 | DVH ---
CHEST RADIOGRAPH Indication: ET tube placement Technique: Single frontal view of the chest was obtained COMPARISON: None FINDINGS: Lines and Tubes: Endotracheal tube terminates in the right mainstem bronchus. Recommend retraction. Enteric tube terminates below the diaphragm outside the field of view. Lungs: Clear Pleura: No effusion. No pneumothorax. Cardiomediastinal contours: Unremarkable Bones: Unremarkable IMPRESSION: 1. Endotracheal tube terminates in the right mainstem bronchus. Recommend retraction.
[2024-06-25] MEDS: MIDAZOLAM DRIP 50 mg/50mL 50 ML IV SCH (14:56)
[2024-06-25] MEDS: PROPOFOL 100 ML IV SCH (14:57)
[2024-06-25] MEDS: fentaNYL Drip 2500mCg/250mlNS 250 ML IV SCH (14:58)
[2024-06-25] MEDS: NOREPINEPHRINE 8 MG/250ML KIT 250 ML IV SCH (15:00)
[2024-06-25 15:02] LABS: Base Excess 1.3 mmol/L (-2.0-3.0)
[2024-06-25 15:53] LABS: INR 1.06 (0.9-1.15); Partial Thromboplastin Time 25.8 SEC (24.5-34.5); Prothrombin Time 11.2 sec (9.3-11.8)
--- NOTE | 2024-06-25 16:38 | DVHNC2 ---
Intubation Indication: Airway Protection Prep: Preoxygenation Medicated with: Atracurium, Other Intubation Approach: Orotracheal Informed consent obtained: Yes Notes PROCEDURE SUMMARY: A time out was performed. My hands were washed immediately prior to the procedure. I wore a surgical cap, mask with protective eyewear, gown and gloves throughout the procedure. The patient was placed on a court recording monitor including continuous pulse oximetry. Rapid Sequence Intubation was conducted. The patient received 40_mg of etomidate for induction and 100_mg of rocuronium bromide for adequate paralysis. Cricoid pressure was maintained from time induction agent was given to time of cuff balloon inflation. Using a glidoscope and a size 8_ endotracheal tube with stylet, the patient was intubated on the 1st_ attempt. The stylet was removed and cuff balloon was inflated. Appropriate endotracheal tube position was confirmed by direct visualization of vocal cord passage, fogging of the tube, CO2 colormetric indicator and symmetric breath sounds. The tube was secured at 24 cm at the lips. Post intubation chest x-ray is pending at this time. Procedure done by michelle leary Supervised by Dr. Nael MD Date of Service: Jun 25, 2024 Billing Provider: SEAN GUADARRAMA MD Common Visit Codes: PROCEDURE ONLY Procedure Codes: 74640-[id number] MICHELLE LEARY RESIDENT Jun 25, 2024 16:38
--- NOTE | 2024-06-25 17:51 | DVH ---
CHEST RADIOGRAPH Indication: CENTRAL LINE PLACEMENT Technique: Single frontal view of the chest was obtained Comparison: XY CHEST XRAY 1 VIEW on DOS: 06/25/24 FINDINGS: Lines and Tubes: Internal jugular catheter in place in the right in the superior vena cava above the right atrium. Endotracheal tube 2.8 cm above the santhosh. Enteric tube below the left diaphragm in the stomach. Lungs: No focal consolidation. Pleura: No effusion. No pneumothorax. Cardiomediastinal contours: Unremarkable Bones: No acute osseous abnormality. IMPRESSION: 1. Endotracheal tube in place 2.8 cm above the santhosh. 2. Right internal jugular catheter in the distal superior vena cava above the right atrium. 3. Enteric tube below the left diaphragm in the stomach HS:Y
--- NOTE | 2024-06-25 18:50 | RESUS ---
CODE ASSIST ASSESSSMENT Initial Information Code Assist Date: Jun 25, 2024 Code Assist Time: 11:33 Location of Arrest: Central Room # Rm 219-A Situation Staff concerned/worried, speci: SaO2 <90, Change LOC, Seizures Situation comment: Patient noted with tremoring in upper body and nystagmus. RN at bedside stated sao2 at 40% on RA, then at 70% with O2 per mask at 6L O2 Background Background: Patient admitted to [facility] on 06/21 for facial celluilitis. History of Seizures and asthma Assessment Temperature (Fahrenheit): 98.2 Blood Pressure Systolic: 119 Blood Pressure Diastolic: 78 Respiratory Rate: 19 O2 Sat by Pulse Oximetry: 100 Assessment comment: Patient with tremoring noted of upper body and nystagmus Recommendations/Interventions Medications and Responses #1: Medication Time: 11:39 ADULT Medications Given: Ativan 1 mg IV MRx1 (2mg ) Route of Administration: IV (ativan 2mg given) Heart Rate: 86 EKG Rhythm: Sinus Rhythm Blood Pressure Systolic: 114 (64) Blood Pressure Diastolic: 64 Respiratory Rate: 18 O2 Sat by Pulse Oximetry: 100 Comment sao2 100% on 3L O2 Medications and Responses #2: Medication Time: 11:45 ADULT Medications Given: Ativan 1 mg IV MRx1 Heart Rate: 83 EKG Rhythm: Sinus Rhythm Blood Pressure Systolic: 113 Blood Pressure Diastolic: 72 Respiratory Rate: 16 O2 Sat by Pulse Oximetry: 100 Comment sao2 100% on 3l O2 - decreased to 2L per NC Medications and Responses #3: ADULT Medications Given: Route of Administration: IV Medication Comment: Keppra 1000 mg ivbp Heart Rate: 77 EKG Rhythm: Sinus Rhythm Blood Pressure Systolic: 30 Blood Pressure Diastolic: 73 Respiratory Rate: 12 O2 Sat by Pulse Oximetry: 100 Medications and Responses #4: Route of Administration: IV Procedures: Cardiac Monitoring, O2 Mask/NC Outcome Outcome: Problem Resolved Team Members Team Members Adam Mckeon RN, Amado Daily RN, Martha Grijalva RN, David Bunn RN, Skye Joyce RN Jun 25, 2024 18:50
[2024-06-25 19:12] LABS: Base Excess 0.7 mmol/L (-2.0-3.0)
--- NOTE | 2024-06-25 19:50 | RESUS ---
CODE ASSIST ASSESSSMENT Initial Information Code Assist Date: Jun 25, 2024 Code Assist Time: 12:58 Location of Arrest: Central Room # 219-A Provider Name Dr Nayak Time Notified: 12:58 Crash Cart Opened and Supplies: No Situation Staff concerned/worried, speci: Non-responsive, Seizures Situation comment: Patient became nonresponsive to painful stimuli with tremoring of upper body noted and nystagmus. Background Background: Patient admitted to [facility] on 06/21 for facial celluilitis. History of Seizures and asthma Assessment Temperature (Fahrenheit): 98.2 Blood Pressure Systolic: 124 Blood Pressure Diastolic: 82 Respiratory Rate: 20 O2 Sat by Pulse Oximetry: 100 Assessment comment: Patient with tremoring noted of upper body and nystagmus Recommendations/Interventions Medications and Responses #1: Medication Time: 13:13 ADULT Medications Given: Route of Administration: IV Medication Comment: Etomidate 25mg Rocuronium 80 mg Heart Rate: 83 EKG Rhythm: Sinus Rhythm Blood Pressure Systolic: 142 Blood Pressure Diastolic: 97 Respiratory Rate: 12 O2 Sat by Pulse Oximetry: 100 Medications and Responses #2: Medication Time: 13:15 ADULT Medications Given: Ativan 4mg Route of Administration: IV Heart Rate: 85 EKG Rhythm: Sinus Rhythm Blood Pressure Systolic: 142 Blood Pressure Diastolic: 97 Respiratory Rate: 11 O2 Sat by Pulse Oximetry: 100 Medications and Responses #3: Medication Time: 13:27 ADULT Medications Given: Route of Administration: IV Medication Comment: Keppra 1000mg IVBP Heart Rate: 85 EKG Rhythm: Sinus Rhythm Blood Pressure Systolic: 142 Blood Pressure Diastolic: 97 O2 Sat by Pulse Oximetry: 100 Procedures: Cardiac Monitoring, Intubated Other Interventions Tubed per Dr Mcwilliams x 1 attempt. ETT 7.5 - 24 @ lip, color change noted, stat cxr ordered to verify placement ett Outcome Outcome: Transfer to ICU Follow up Report Follow up Report 1320 Diprivan gtt started at 10mcg per MD order - SAO2 100% BP 170/95-82 HR 1325 Increased Diprivan gtt to 20mcg per MD order 1335 Transferred to Room 108 with cardiac monitoring per David Meredith RN, David Leal RN, Guerda FOOD INSPECTOR and Laura MARTINEZ BP 143/92 - HR 83, SAO2 100% Team Members Team Members Dr Nayak, David Roper RN, David Leal RN, Amado RN, Abimbola RN, Maris ZAMANA, Glen FOOD INSPECTOR, Temitope FOOD INSPECTOR, Skye Quintero RRT Jun 25, 2024 19:50
[2024-06-25] MEDS: VANCOMYCIN 1.25GM/250ML 250 ML IV SCH (20:00)
[2024-06-25] MEDS: VANCOMYCIN 1GM/250ML KIT 250 ML IV ONE (21:14)
[2024-06-25] MEDS: levETIRAcetam 1000 mg/100ml 100 ML IV SCH (22:09)
--- NOTE | 2024-06-25 22:57 | DVHINCON2 ---
Date of service: Jun 25, 2024 Referring Physician Yaron Doan MD Reason for Consultation Acute hypoxic respiratory failure requiring mechanical ventilator and asthma History of Present Illness A 38-year-old woman with past medical history of asthma and seizures who presented to ED on 06/21/24 for evaluation of left facial swelling. Patient reported being seen day prior to presentation for a wound on her left forehead that started as a pimple 3 days prior. She was sent home with clindamycin. Patient complained of symptoms worsening with development of left periorbital redness and swelling. Denied blurred vision. No headache. Denied fever or chills. Patient was admitted for further care, and pulmonary consultation is requested for evaluation and management of acute hypoxic respiratory failure re quiring mechanical ventilator and asthma.. Review of Systems: 14-point review of systems negative unless otherwise noted above. Past Medical History: Asthma and seizures Past Surgical History: Tonsillectomy, , right leg surgery Medications: Reviewed. Allergies: Penicillin Family History: No family history of premature CAD. No family history of lung disorders. Social History: Nonsmoker. Occasional alcohol use. No illicit drug use. Family History: Patient reports no known family medical history. Allergies: Coded Allergies: Penicillins (Verified Allergy, Unknown, 03/14/24) Home Meds Active Scripts Hydrocodone-Acetaminophen (Hydrocodone Bitartrate/AC 5-325 mg) 1 Tab Tab, 1 TAB PO Q8HP PRN for 7 Days, #21 TAB Prov:EFREM OSEGUERA MD 06/20/24 Clindamycin Hcl (Clindamycin Hcl) 300 Mg Cap, 1 CAP PO TID, #21 CAP Prov:EFREM OSEGUERA MD 06/20/24 Current Medications Current Medications Medications (Trade) Dose Ordered Sig/Jayme Route PRN Reason Start Time Stop Time Status Last Admin Levetiracetam 100 ml @ 400 mls/hr BID IV 06/25/24 22:00 06/25/24 22:09 Vancomycin HCl 250 ml @ 200 mls/hr Q10H IV 06/25/24 20:00 Norepinephrine Bitartrate 250 ml @ 3.75 mls/hr Q24H IV 06/25/24 14:00 Propofol 100 ml @ 2.967 mls/ hr Q24H IV 06/25/24 14:00 06/25/24 19:57 Midazolam HCl 50 ml @ 1 mls/hr Q24H IV 06/25/24 14:00 06/25/24 14:56 Fentanyl Citrate 250 ml @ 2.5 mls/hr Q24H IV 06/25/24 14:00 Vital Signs Vital Signs Date Time Temp Pulse Resp B/P (MAP) Pulse Ox O2 Delivery O2 Flow Rate FiO2 06/25/24 20:28 74 20 105/68 (80) 100 30 06/25/24 19:00 98.2 208.8 06/25/24 18:00 Mechanical Ventilator+ 06/25/24 08:00 0 Physical Exam Gen.: Patient lying in bed in medical ICU. Sedated, intubated on mechanical ventilator. Head: Normocephalic, atraumatic. Eyes: PERRLA. Ears: Normal external anatomy. Throat: Endotracheal tube and orogastric tube in place. Neck: Supple, trachea midline. Chest: Transmitted breath sounds bilaterally. Decreased air entry bilaterally. No wheezing. Bibasilar crackles. Cardiovascular: Positive S1, positive S2. Regular rate and rhythm. Abdomen: Positive bowel sounds in all 4 quadrants. Soft, nontender, nondistended. : Skelton in place. Normal external genitalia. Rectal: Deferred. Skin: Warm, dry. Intact. Extremities: 2+ radial pulses bilaterally. No lower extremity edema. Neuro: Sedated. Labs/Diagnostic Data Labs Test 06/25/24 19:06 06/25/24 15:13 06/25/24 14:45 06/25/24 11:34 Range/Units Blood Gas Specimen Type Arterial Blood Gas Sample Site Right radial Blood Gas Patient Temperature 37.0 Arterial Blood Date Drawn [id number] Arterial Blood pH 7.424 7.350-7.450 Arterial Blood Partial Pressure CO2 39.1 32.0-45.0 mmHg Arterial Blood Partial Pressure O2 131.8 H 83.0-108.0 mmHg Arterial Blood HCO3 25.0 21.0-28.0 mmol/L Arterial Blood Oxygen Saturation 98.4 H 94.0-98.0 % Arterial Blood Base Excess 0.7 -2.0-3.0 mmol/L Arterial Blood Oxyhemoglobin 97.8 94.0-98.0 % Arterial Blood Carboxyhemoglobin 0.3 L 0.5-1.5 % Arterial Blood Methemoglobin 0.3 0.0-1.5 % Johny Test Yes Blood Gas Total Hemoglobin 13.20 12.0-16.0 g/dL Blood Gas Set Respiration Rate 20.0 Blood Gas Modality Vent - ac FiO2 % 45.0 Blood Gas Tidal Volume 350.0 Blood Gas PEEP or CPAP 5.0 Prothrombin Time 11.2 9.3-11.8 sec Prothrombin Time INR 1.06 0.9-1.15 Activated Partial Thromboplast Time 25.8 24.5-34.5 SEC Blood Gas Critical Value Read Back Yes Blood Gas Notified Whom aleksandar Nayak md Blood Gas Notified Time [id number] Blood Gas Notified By Oracio gu rrt POC Glucose 101 70-106 mg/dl Test 06/25/24 10:00 06/24/24 21:31 06/24/24 14:18 06/24/24 06:55 Range/Units White Blood Count 8.0 4.4-10.8 10^3/uL Red Blood Count 4.26 4.0-5.20 10^6/uL Hemoglobin 13.4 12.2-16.2 g/dL Hematocrit 40.2 # 36.0-46.0 % Mean Corpuscular Volume 94.4 80.0-100.0 fL Mean Corpuscular Hemoglobin 31.4 28.0-32.0 pg Mean Corpuscular Hemoglobin Concent 33.2 32.0-36.0 g/dL Red Cell Distribution Width 13.2 11.8-14.3 % Platelet Count 229 140-450 10^3/uL Mean Platelet Volume 8.8 6.9-10.8 fL Neutrophils (%) (Auto) 74.8 37.0-80.0 % Lymphocytes (%) (Auto) 17.4 10.0-50.0 % Monocytes (%) (Auto) 6.7 0.0-12.0 % Eosinophils (%) (Auto) 0.6 0.0-7.0 % Basophils (%) (Auto) 0.5 0.0-2.0 % Neutrophils # (Auto) 6.0 1.6-8.6 10 ^3/uL Lymphocytes # (Auto) 1.4 0.4-5.4 10 ^3/uL Monocytes # (Auto) 0.5 0-1.3 10 ^3/uL Eosinophils # (Auto) 0.1 0-0.8 10 ^3/uL Basophils # (Auto) 0 0-0.2 10 ^3/uL Nucleated Red Blood Cells 0.0 % Creatinine 0.80 0.550-1.02 mg/dL Glomerular Filtration Rate Calc 97 >90 mL/min Vancomycin Level Trough 9.5 5-10 ug/mL Magnesium Level 1.8 1.6-2.6 mg/dL Sodium Level 138 136-145 mmol/L Potassium Level 3.7 3.5-5.1 mmol/L Chloride Level 104 98-107 mmol/L Carbon Dioxide Level 25 20-31 mmol/L Anion Gap 9 5-15 Blood Urea Nitrogen 6 L 9-23 mg/dL BUN/Creatinine Ratio 8.2 L 10.0-20.0 Serum Glucose 103 74-106 mg/dL Calcium Level 9.4 8.7-10.4 mg/dL Test 06/21/24 19:30 Range/Units Lactic Acid Level 0.9 0.4-2.0 mmol/L Total Bilirubin 0.4 0.2-1.0 mg/dL Aspartate Amino Transferase (AST) 16 13-40 U/L Alanine Aminotransferase (ALT) 20 7-40 U/L Alkaline Phosphatase 66 46-116 U/L Total Protein 6.9 5.7-8.2 g/dL Albumin 4.3 3.2-4.8 g/dL Microbiology Date/Time Source Procedure Growth Status 06/21/24 19:30 Blood Blood Culture - Preliminary NO GROWTH AFTER 72 HOURS OF INCUBATION. Resulted Assessment Impression: Acute hypoxic respiratory failure On mechanical ventilator Cellulitis Asthma Morbid obesity 38.1 Plan: s/p intubation on mechanical ventilator. CXR image and report reviewed. Devices in place. No pneumothorax. No pleural effusion. ABG reviewed, compensated. On AC mode; RR 20, VT 350, PEEP 5, FiO2 45% Titrate FIO2 to keep O2 saturation above 90%. VAP bundle. Daily ABG and CXR while intubated Sedate for ventilator synchrony - Versed, Propofol Antiepileptic medication Neurology recommendations appreciated [facility] for continuous EEG. Off Levophed, hemodynamically stable. Continue antibiotics. F/u cultures. Start pressors if necessary to maintain a mean arterial blood pressure greater than 65 mmHg. Pain control Avoid oversedation S/p right IJ central line placement. See separate procedure note for details. Obtain repeat ABG. Monitor renal function Monitor electrolytes. Supplement as necessary. Monitor ins and outs. Diet and lifestyle modifications for weight reduction Morbid obesity - complicates all care GI prophylaxis. DVT prophylaxis. Prognosis: Poor given patient's multiple co-morbidities. Condition: Critical Rest of plan per hospitalist and other consultants. A total of 35 minutes of critical care time was spent reviewing the patient record, examining the patient, making a diagnostic and therapeutic plan, discussing this plan with the medical personnel, following up on diagnostic studies and following the patient for clinical stability excluding any and all procedures. At least 50% of this time was spent in direct, [id number] contact. Thank you, Dr. Doan, for allowing me to participate in this patient's care. Further recommendations will depend on the patient's clinical course. Please do not hesitate to contact me if you have any questions or concerns. This medical document was created using an electronic medical record system with [employer] dictation system. Although these documentations are being carefully reviewed, there may still be some phonetic and typographical changes. The errors are purely typographical, due to imperfection on the software program, and do not reflect any compromise in the patient's medical care. Plan discussed with: Other (AMY Chamorro/Dr. Doan) MURPHY GOYAL MD Jun 25, 2024 22:56
[2024-06-26] VITALS (100 sets, daily range): BP systolic 93–142; BP diastolic 59–103; PULSE 71–102; RESP 12–27; TEMP 97.2–98.8; O2SAT 95–100
[2024-06-26 03:35] LABS: Basophils # (auto) 0 10 ^3/uL (0-0.2); Basophils % (auto) 0.6 % (0.0-2.0); Eosinophils # (auto) 0.1 10 ^3/uL (0-0.8); Eosinophils % (auto) 1.1 % (0.0-7.0); Hematocrit 36.1 % (36.0-46.0); Hemoglobin 12.1 g/dL (12.2-16.2); Lymphocytes # (auto) 1.5 10 ^3/uL (0.4-5.4); Lymphocytes % (auto) 18.7 % (10.0-50.0); Mean Corpuscular Hemoglobin 31.3 pg (28.0-32.0); Mean Corpuscular Hgb Conc. 33.6 g/dL (32.0-36.0); Mean Corpuscular Volume 93.2 fL (80.0-100.0); Monocytes # (auto) 0.7 10 ^3/uL (0-1.3); Monocytes % (auto) 8.6 % (0.0-12.0); Neutrophils # (auto) 5.7 10 ^3/uL (1.6-8.6); Platelet Count (auto) 282 10^3/uL (140-450); Red Blood Cells 3.87 10^6/uL (4.0-5.20); Red Cell Distribution Width 13.6 % (11.8-14.3); White Blood Cell 8.1 10^3/uL (4.4-10.8)
[2024-06-26 03:59] LABS: Alanine Aminotransferase 19 U/L (7-40); Albumin 3.9 g/dL (3.2-4.8); Alkaline Phosphatase 55 U/L (46-116); Anion Gap 7 (5-15); Aspartate Aminotransferase 16 U/L (13-40); Calcium 9.7 mg/dL (8.7-10.4); Carbon Dioxide 28 mmol/L (20-31); Glucose 96 mg/dL (74-106); Sodium 143 mmol/L (136-145); Total Protein 6.4 g/dL (5.7-8.2)
[2024-06-26 04:08] LABS: Chloride 108 mmol/L (98-107); Potassium 3.4 mmol/L (3.5-5.1)
[2024-06-26 04:09] LABS: BUN/Creatinine Ratio 7.5 (10.0-20.0); Bilirubin, Total 0.2 mg/dL (0.2-1.0); Blood Urea Nitrogen < 5 mg/dL (9-23)
--- NOTE | 2024-06-26 04:41 | DVH ---
CHEST RADIOGRAPH Indication: ET TUBE PLACEMENT Technique: Single frontal view of the chest was obtained Comparison: XY CHEST PORTABLE on DOS: 06/25/24 FINDINGS: Lines and Tubes: There is a right central venous catheter which is looped at the neck and the tip ove rlies the superior vena cava. The endotracheal tube terminates 2.8 cm above the santhosh. The enteric tube courses below the left hemidiaphragm and the tip extends outside the field of view. Lungs: No focal consolidation. Pleura: No effusion. No pneumothorax. Cardiomediastinal contours: Unremarkable Bones: No acute osseous abnormality. IMPRESSION: 1. Stable position of the support lines and tubes. 2. No acute cardiopulmonary disease.
[2024-06-26 06:56] LABS: Base Excess 1.2 mmol/L (-2.0-3.0)
--- NOTE | 2024-06-26 10:31 | DVHPN2 ---
Progress Note - Dictate Date Seen: Jun 26, 2024 Medical Necessity Reason Pt with a Central, PICC or Fol: No Subjective Ms. Wen is a 38 years old female with a history of obesity, asthma, seizure disorder, she came to the [facility] on 06/21/2024 with a chief company of progressive left facial swelling, I have seen and examined the patient, discussed with her nurse, Dr. Dwaine Nayak She keeps having seizure yesterday, she was completely nonresponsive to stroke painful stimuli with nystagmus during seizure activity, the patient was intubated and transferred to ICU on 06/25/2024 She is nonresponsive to painful stimuli, she was gag reflexes CBC, 06/21/24: Unremarkable CMP, : Unremarkable HCO3, 06/21 25:24, 05/2724: 24, 06/24/2024: 25, 06/26/2024: 28 Prolactin, 06/22/2024 14:50: 9.16 CT head, 06/22/2024: No acute intracranial abnormality. MRI head, 06/24/2024: 1. No acute intracranial process identified. 2. Suggestion right mesial temporal sclerosis. No evidence for focal cortical dysplasia, or doshi matter heterotopia. 3. Indeterminate subcentimeter left parietal scalp subcutaneous lesion with underlying subcutaneous edema. This may represent an infected sebaceous cyst or other etiologies. Recommend clinical correlation vital signs Vital Sign Date Time Temp Pulse Resp B/P (MAP) Pulse Ox O2 Delivery O2 Flow Rate FiO2 06/26/24 09:37 79 20 101/68 (79) 99 30 06/26/24 08:15 97.9 208.2 06/26/24 08:00 Mechanical Ventilator+ 06/25/24 08:00 0 Total Intake and Output 06/25/24 06/25/24 06/26/24 15:00 23:00 07:00 Intake Total 283.9 ml 522.14 ml 67090.48 ml Output Total 800 ml 925 ml Balance 283.9 ml -277.86 ml 90787.48 ml medications Current Medications Medications Dose Ordered Sig/Jayme Route Start Time Stop Time Status Last Admin Dose Admin Levofloxacin/ Dextrose 100 ml @ 100 mls/hr DAILY IV 06/22/24 10:00 06/26/24 10:05 100 MLS/HR Temazepam 15 mg QHSP PRN PO 06/21/24 19:00 06/22/24 21:12 15 MG Ondansetron HCl 4 mg Q4HP PRN IV 06/21/24 19:00 06/25/24 09:59 4 MG Acetaminophen 650 mg Q6HP PRN PO 06/21/24 19:00 06/24/24 22:55 650 MG Vancomycin HCl 0 ml @ 0 mls/hr UD IV 06/22/24 12:00 Levetiracetam 500 mg BID PO 06/22/24 22:00 Cancel Lorazepam 1 mg Q5MINP PRN IV 06/22/24 13:00 06/26/24 04:03 1 MG Lorazepam 1 mg ONCE PRN IV 06/22/24 21:15 06/24/24 12:56 1 MG Hydromorphone HCl 2 mg Q4HPRN PRN IV 06/23/24 08:45 06/25/24 10:05 2 MG Levetiracetam 100 ml @ 400 mls/hr BID IV 06/25/24 22:00 06/26/24 09:36 400 MLS/HR Vancomycin HCl 250 ml @ 200 mls/hr Q10H IV 06/25/24 20:00 06/26/24 05:39 200 MLS/HR Norepinephrine Bitartrate 250 ml @ 3.75 mls/hr Q24H IV 06/25/24 14:00 Propofol 100 ml @ 2.967 mls/ hr Q24H IV 06/25/24 14:00 06/26/24 08:39 29.67 MLS/HR Midazolam HCl 50 ml @ 1 mls/hr Q24H IV 06/25/24 14:00 06/25/24 23:00 3 MLS/HR Fentanyl Citrate 250 ml @ 2.5 mls/hr Q24H IV 06/25/24 14:00 objective General: the patient is well developed and nourished. No acute distress. MENTAL STATUS: Subjective CRANIAL NERVES: Pupils are equal, round and non-reactive, very small. There are corneal reflexes and doll's eyes phenomenon. No signs of facial weakness. There are gagging or coughing reflexes SENSATION: No responses to pain stimuli. MOTOR: Normal tone in the upper and lower extremity. Normal muscle bulk. No fasciculations. No spontaneous movement. REFLEXES: Deep tendon reflexes are symmetrical. No pathological reflexes. CEREBELLAR/COORDINATION: Deferred GAIT/STATION: deferred. laboratory and microbiology Laboratory Tests 06/26/24 03:11 Test 06/26/24 03:11 Range/Units Serum Glucose 96 74-106 mg/dL Problem List Frequent generalized seizure activity, with atypical feature, the one I witnessed was not epileptic seizure Status epileptics ? Mixed epileptic and nonepileptic seizure Assessment/Plan Monitoring Supportive treatment ICU care Stabilize vitals Respiratory support/vent management EEG Ativan for seizure breakthrough Keppra 1000 mg b.i.d. Transfer to a higher level care for continuous video EEG monitoring More recommendation per clinical course This medical document was created using an electronic medical record system with [employer] dictation system. Although this document has been carefully reviewed, there may still be some phonetic and typographical errors. These areas are purely typographical due to imperfections of the software programs, and do not reflect any compromise in the patient's medical care. Prognosis guarded Dietary Evaluation Review Recommendations by RD: Dietary education by RD, Protein Supplementation Comments: 1) Initiate Ensure Enlive bid d/t decreased appetite. Encourage optimal PO intake 2) Refer to outpatient RD for weight management 3) Follow-up with neurology 4) Continue to monitor I&O, labs, and skin integrity Expected Outcomes/Goals: 1) appetite and labs to improve 2) cellulitis to improve 3) f/u in 3-5 days Plan discussed with: Other Critical Care Time(min): 35 NAYAN RIOJAS MD Jun 26, 2024 10:31
--- NOTE | 2024-06-26 11:18 | DVHDS2 ---
Discharge Summary Date of Admission Jun 21, 2024 at 18:55 Date of Discharge: Jun 26, 2024 Admitting Diagnosis Facial cellulitis Labs/Diagnostic Data: Laboratory Results Test 06/26/24 06:45 06/26/24 03:11 06/25/24 15:13 06/25/24 14:45 Blood Gas Specimen Type Arterial Blood Gas Sample Site Right radial Blood Gas Patient Temperature 37.0 Arterial Blood Date Drawn [id number] Arterial Blood pH 7.418 (7.350-7.450) Arterial Blood Partial Pressure CO2 40.9 mmHg (32.0-45.0) Arterial Blood Partial Pressure O2 107.9 mmHg (83.0-108.0) Arterial Blood HCO3 25.8 mmol/L (21.0-28.0) Arterial Blood Oxygen Saturation 97.7 % (94.0-98.0) Arterial Blood Base Excess 1.2 mmol/L (-2.0-3.0) Arterial Blood Oxyhemoglobin 97.0 % (94.0-98.0) Arterial Blood Carboxyhemoglobin 0.3 % (0.5-1.5) Arterial Blood Methemoglobin 0.4 % (0.0-1.5) Johny Test Modified Blood Gas Total Hemoglobin 12.90 g/dL (12.0-16.0) Blood Gas Set Respiration Rate 20.0 Blood Gas Modality Vent - ac FiO2 % 30.0 Blood Gas Tidal Volume 350.0 Blood Gas PEEP or CPAP 5.0 White Blood Count 8.1 10^3/uL (4.4-10.8) Red Blood Count 3.87 10^6/uL (4.0-5.20) Hemoglobin 12.1 g/dL (12.2-16.2) Hematocrit 36.1 % (36.0-46.0) Mean Corpuscular Volume 93.2 fL (80.0-100.0) Mean Corpuscular Hemoglobin 31.3 pg (28.0-32.0) Mean Corpuscular Hemoglobin Concent 33.6 g/dL (32.0-36.0) Red Cell Distribution Width 13.6 % (11.8-14.3) Platelet Count 282 10^3/uL (140-450) Mean Platelet Volume 8.4 fL (6.9-10.8) Neutrophils (%) (Auto) 71.0 % (37.0-80.0) Lymphocytes (%) (Auto) 18.7 % (10.0-50.0) Monocytes (%) (Auto) 8.6 % (0.0-12.0) Eosinophils (%) (Auto) 1.1 % (0.0-7.0) Basophils (%) (Auto) 0.6 % (0.0-2.0) Neutrophils # (Auto) 5.7 10 ^3/uL (1.6-8.6) Lymphocytes # (Auto) 1.5 10 ^3/uL (0.4-5.4) Monocytes # (Auto) 0.7 10 ^3/uL (0-1.3) Eosinophils # (Auto) 0.1 10 ^3/uL (0-0.8) Basophils # (Auto) 0 10 ^3/uL (0-0.2) Nucleated Red Blood Cells 0.0 % Sodium Level 143 mmol/L (136-145) Potassium Level 3.4 mmol/L (3.5-5.1) Chloride Level 108 mmol/L (98-107) Carbon Dioxide Level 28 mmol/L (20-31) Anion Gap 7 (5-15) Blood Urea Nitrogen < 5 mg/dL (9-23) Creatinine 0.67 mg/dL (0.550-1.02) Glomerular Filtration Rate Calc 115 mL/min (>90) BUN/Creatinine Ratio 7.5 (10.0-20.0) Serum Glucose 96 mg/dL (74-106) Calcium Level 9.7 mg/dL (8.7-10.4) Total Bilirubin 0.2 mg/dL (0.2-1.0) Aspartate Amino Transferase (AST) 16 U/L (13-40) Alanine Aminotransferase (ALT) 19 U/L (7-40) Alkaline Phosphatase 55 U/L (46-116) Total Protein 6.4 g/dL (5.7-8.2) Albumin 3.9 g/dL (3.2-4.8) Prothrombin Time 11.2 sec (9.3-11.8) Prothrombin Time INR 1.06 (0.9-1.15) Activated Partial Thromboplast Time 25.8 SEC (24.5-34.5) Blood Gas Critical Value Read Back Yes Blood Gas Notified Whom aleksandar Nayak md Blood Gas Notified Time [id number] Blood Gas Notified By Oracio gu digital director Test 06/25/24 11:34 06/24/24 21:31 06/24/24 14:18 06/21/24 19:30 POC Glucose 101 mg/dl (70-106) Vancomycin Level Trough 9.5 ug/mL (5-10) Magnesium Level 1.8 mg/dL (1.6-2.6) Prolactin 7.75 ng/mL (2.8-29.2) Lactic Acid Level 0.9 mmol/L (0.4-2.0) Other Laboratory Tests 06/26/24 03:11 Brief Hx & Hospital Course: History of Present Illness 38-year-old female presents for evaluation of left facial swelling. Patient reports being seen yesterday for a wound on her left forehead that started as a pimple three days ago. She was sent home with clindamycin. She states the symptoms became worse today now she reports having left periorbital redness and swelling. Denies blurred vision. No headache. Denies fever or chills. Course of hospitalization: Patient was placed on IV antibiotic therapy. Patient had multiple seizures while in the hospital, with the patient was subsequently being endotracheally intubated. Neurology consultation was obtained. Given the patient's persistent seizures while in the hospital, recommendations were for the patient to be transferred to higher level of care for continuous EEG monitoring. Patient was currently on 30% FiO2 without any respiratory distress while on the mechanical ventilation. Facial cellulitis has improved. Patient will be transferred to tertiary care facility for his previously mention continuous EEG monitoring. Patient will be continued on current IV antibiotics, sedation, as well as other supportive measures. Physical examination General: chemically sedated Eyes: EOMI. Anicteric. Mild periorbital swelling HENT: Moist mucous membranes. ET tube Lungs: Mechanical ventilation. Clear breath sounds. Cardiovascular: Regular rate and rhythm. No murmur. No JVD. Abdomen: Soft, non-tender and non-distended. No palpable masses. Extremities: No edema. Non-tender. Skin: No rashes or lesions. Warm. Neurologic: Unable to assess Psychiatric: Unable to assess Critical care time spent with patient discussing and formulating plan of care: 40 minutes. This does not include time spent performing procedures. This medical document was created using an electronic medical record system with Dragon computerized dictation system. Although this document has been carefully reviewed, there may still be some phonetic and typographical errors. These areas are purely typographical due to imperfections of the software programs, and do not reflect any compromise in the patient's medical care. Consults/Reason for consult Neurology: Breakthrough seizures Condition at Discharge: Guarded Final Diagnosis/Problems List Cellulitis of the face with failure of oral antibiotic therapy Acute hypoxic respiratory failure -breakthrough seizures with persistent seizure activity Discharge Disposition: Acute Care Facility Discharge Instruct/Medications Diet: Regular Activity: Bed rest Follow Up/Referral: Per receiving hospital Medications: Refer to medication reconciliation form 36 Discharge Statement: "Patient was advised to return to the ER or call 911 if any headaches, dizziness, shortness of breath, chest pain, abdominal pain, bleeding, fevers, or worsening of medical condition. Patient was counseled about treatment plan, medications, possible side effects, patientverbalized understanding. All questions were answered to the best of my ability. This discharge took greater then 30 minutes in planning, reviewing documentation, counseling the patient, and discussing with other team members." ASSESSMENT ASSESSMENT Assessment Cellulitis of the face with failure of oral antibiotic therapy Acute hypoxic respiratory failure -breakthrough seizures with persistent seizure activity Date of Service: Jun 26, 2024 Billing Provider: PAMELA WATSON NP Common Visit Codes: 56517-WOY/OBS DISCH DAY >30min, 05212-JGFWWWIJ CARE 30-74 MIN PAMELA WATSON NP Jun 26, 2024 11:18
[2024-06-26] MEDS: PANTOPRAZOLE 40 MG/10 ML VIAL INJ IV SCH (12:32)
[2024-06-26] MEDS: POTASSIUM EFFERVESENT TAB 25 MEQ GT ONE (12:32)
[2024-06-26] MEDS: ENOXAPARIN SOD 40 MG/0.4 ML SYRINGE SC SCH (12:33)
--- NOTE | 2024-06-26 14:36 | DVHNC2 ---
Procedure - ULTRASOUND-GUIDED RIGHT INTERNAL JUGULAR CENTRAL VENOUS CANNULATION CPT Codes: 35102 (ultrasound guidance) 83184 (insertion of non-tunneled centrally inserted central venous catheter) 03577 (CXR interpretation) Time out time: 1724 Patient medications and allergies reviewed. The risks and benefits of the procedure and the sedation options and risk were discussed with the patient's healthcare proxy. All questions were answered and informed consent was obtained. Patient identification and proposed procedure were verified prior to the procedure by the physician, and a nurse in the patient's room. The heart rate, respiratory rate, oxygen saturations, blood pressure, adequacy of pulmonary ventilation, and response to care were monitored throughout the procedure. The physical status of the patient was reassessed after the procedure. DATE: June 25, 2024 PHYSICIAN: Murphy Booth PREOPERATIVE DIAGNOSIS: Shock POSTOPERATIVE DIAGNOSIS: Shock PROCEDURE PERFORMED: Limited Ultrasound-guided Right internal jugular central line placement. ANESTHESIA: 2 mL of 1% lidocaine plain. ESTIMATED BLOOD LOSS: less than 5 mL. SPECIMENS: None. COMPLICATIONS: None. INDICATIONS FOR PROCEDURE: The patient is in need of large bore IV access for administration of fluids, including blood products and vasoactive drugs, possible transvenous cardiac pacing and CVP monitoring for hemodynamic instability. DESCRIPTION OF PROCEDURE IN DETAIL: The patient was lying in the Trendelenburg position with head turned 30 degrees away from the insertion site. The skin was thoroughly sponged with chlorhexidine and allowed to dry. All persons involved were shielded with hair nets, face masks and sterile gowns. With sterile-gloved hands the right neck area was draped with the large disposable sterile field provided in the pre-manufactured kit. The skin and subcutaneous tissues superficial to the RIGHT internal jugular vein were anesthetized with 2 mL of 1% lidocaine. The RIGHT internal jugular vein was identified on ultrasound from the angle of the mandible down into the supraclavicular fossa using the linear ultrasound probe in the transverse orientation. The carotid artery was identified and avoided utilizing color-flow. The internal jugular vein was then placed in the center of the ultrasound field and compressed for patency. A movement artifact was identified as the needle was advanced through the skin and advanced toward the vessel. A real time hyperechoic signal revealed visualization of vascular needle entry into the lumen as blood was noted to flashback in the syringe. The needle was then held in place while the guide wire was advanced. The needle was then removed. Direct visualization of guide wire location within the vein was noted on ultrasound indicating proper placement and was document in the electronic medical record chart. A skin dilator was advanced over the guidewire and removed, and the triple-lumen catheter was then advanced over the guide wire into proper position. The guide wire was removed and discarded. The ports were aspirated which showed good blood return and then carefully flushed with normal saline. The catheter was stabilized and sutured to the skin with 2-0 silk at 4 anchor points. A sterile bio-patch and dressing was placed over the catheter, including the insertion site. The patient tolerated the procedure well. A chest x-ray was ordered for position confirmation. I reviewed the image immediately after it was taken at bedside. Post-procedure chest x-ray demonstrates the central line in the superior vena and no evidence of any pneumothorax. An image recording of the procedure accompanies the chart. MURPHY BOOTH MD Jun 26, 2024 14:36
[2024-06-26] MEDS: VANCOMYCIN 1.25GM/250ML 250 ML IV SCH (17:08)
--- NOTE | 2024-06-26 19:21 | DVHPN2 ---
Progress Note - Dictate Date Seen: Jun 26, 2024 Medical Necessity Reason Pt with a Central, PICC or Fol: Yes The following are medically ne: Gibson Catheter Reason for gibson catheter: Strict I&O Subjective Patient seen and examined at bedside. Sedated, intubated on mechanical ventilator. Overnight events reviewed. vital signs Vital Sign Date Time Temp Pulse Resp B/P (MAP) Pulse Ox O2 Delivery O2 Flow Rate FiO2 06/26/24 18:34 83 20 108/73 (85) 100 30 06/26/24 18:33 Mechanical Ventilator 06/26/24 17:45 97.7 207.9 06/25/24 08:00 0 Total Intake and Output 06/25/24 06/25/24 06/26/24 15:00 23:00 07:00 Intake Total 283.9 ml 522.14 ml 86631.48 ml Output Total 800 ml 925 ml Balance 283.9 ml -277.86 ml 75039.48 ml medications Current Medications Medications Dose Ordered Sig/Jayme Route Start Time Stop Time Status Last Admin Dose Admin Levofloxacin/ Dextrose 100 ml @ 100 mls/hr DAILY IV 06/22/24 10:00 06/26/24 10:05 100 MLS/HR Ondansetron HCl 4 mg Q4HP PRN IV 06/21/24 19:00 06/25/24 09:59 4 MG Acetaminophen 650 mg Q6HP PRN PO 06/21/24 19:00 06/24/24 22:55 650 MG Vancomycin HCl 0 ml @ 0 mls/hr UD IV 06/22/24 12:00 Levetiracetam 500 mg BID PO 06/22/24 22:00 Cancel Lorazepam 1 mg Q5MINP PRN IV 06/22/24 13:00 06/26/24 04:03 1 MG Lorazepam 1 mg ONCE PRN IV 06/22/24 21:15 06/24/24 12:56 1 MG Levetiracetam 100 ml @ 400 mls/hr BID IV 06/25/24 22:00 06/26/24 09:36 400 MLS/HR Norepinephrine Bitartrate 250 ml @ 3.75 mls/hr Q24H IV 06/25/24 14:00 Propofol 100 ml @ 2.967 mls/ hr Q24H IV 06/25/24 14:00 06/26/24 18:15 29.67 MLS/HR Midazolam HCl 50 ml @ 1 mls/hr Q24H IV 06/25/24 14:00 06/26/24 12:19 4 MLS/HR Fentanyl Citrate 250 ml @ 2.5 mls/hr Q24H IV 06/25/24 14:00 Pantoprazole Sodium 40 mg DAILY IV 06/26/24 11:15 06/26/24 12:32 40 MG Enoxaparin Sodium 40 mg DAILY SC 06/26/24 11:15 06/26/24 12:33 40 MG Vancomycin HCl 250 ml @ 200 mls/hr Q8H IV 06/26/24 16:00 06/26/24 17:08 200 MLS/HR objective Gen.: Patient lying in bed in medical ICU. Sedated, intubated on mechanical ventilator. Head: Normocephalic, atraumatic. Eyes: PERRLA. Ears: Normal external anatomy. Throat: Endotracheal tube and orogastric tube in place. Neck: Supple, trachea midline. Chest: Transmitted breath sounds bilaterally. Decreased air entry bilaterally. No wheezing. Bibasilar crackles. Cardiovascular: Positive S1, positive S2. Regular rate and rhythm. Abdomen: Positive bowel sounds in all 4 quadrants. Soft, nontender, nondistended. : Gibson in place. Normal external genitalia. Rectal: Deferred. Skin: Warm, dry. Intact. Extremities: 2+ radial pulses bilaterally. No lower extremity edema. Neuro: Sedated. laboratory and microbiology Laboratory Tests 06/26/24 03:11 Test 06/26/24 03:11 Range/Units Serum Glucose 96 74-106 mg/dL Assessment/Plan Impression: Acute hypoxic respiratory failure On mechanical ventilator Cellulitis Asthma Morbid obesity 38.1 Events: Remains on vent support On AC mode; RR 20, VT 350, PEEP 5, FiO2 30% Sedated on Propofol, Versed. Neurology recommendations appreciated Plan for [facility] for continuous EEG monitoring Off pressors, hemodynamically stable. Continue antibiotics. CXR reviewed, no acute disease ABG reviewed, compensated. Labs and imaging reviewed. Rest of plan as noted below. Plan: s/p intubation on mechanical ventilator. CXR image and report reviewed. Devices in place. No pneumothorax. No pleural effusion. ABG reviewed, compensated. On AC mode; RR 20, VT 350, PEEP 5, FiO2 30% Titrate FIO2 to keep O2 saturation above 90%. VAP bundle. Daily ABG and CXR while intubated Sedate for ventilator synchrony Antiepileptic medication Neurology recommendations appreciated [facility] for continuous EEG. Continue antibiotics. F/u cultures. Start pressors if necessary to maintain a mean arterial blood pressure greater than 65 mmHg. Pain control Avoid oversedation S/p right IJ central line placement. See separate procedure note for details. Monitor renal function Monitor electrolytes. Supplement as necessary. Monitor ins and outs. Diet and lifestyle modifications for weight reduction Morbid obesity - complicates all care GI prophylaxis. DVT prophylaxis. Prognosis: Poor given patient's multiple co-morbidities. Condition: Critical Rest of plan per hospitalist and other consultants. A total of 35 minutes of critical care time was spent reviewing the patient record, examining the patient, making a diagnostic and therapeutic plan, discussing this plan with the medical personnel, following up on diagnostic studies and following the patient for clinical stability excluding any and all procedures. At least 50% of this time was spent in direct, [id number] contact. Thank you, Dr. Doan, for allowing me to participate in this patient's care. Further recommendations will depend on the patient's clinical course. Please do not hesitate to contact me if you have any questions or concerns. This medical document was created using an electronic medical record system with [employer] dictation system. Although these documentations are being carefully reviewed, there may still be some phonetic and typographical changes. The errors are purely typographical, due to imperfection on the software program, and do not reflect any compromise in the patient's medical care. Dietary Evaluation Review Recommendations by RD: Dietary education by RD, Protein Supplementation Comments: 1) Initiate Ensure Enlive bid d/t decreased appetite. Encourage optimal PO intake 2) Refer to outpatient RD for weight management 3) Follow-up with neurology 4) Continue to monitor I&O, labs, and skin integrity Expected Outcomes/Goals: 1) appetite and labs to improve 2) cellulitis to improve 3) f/u in 3-5 days Plan discussed with: Other (AMY Chamorro) Critical Care Time(min): 35 MURPHY GOYAL MD Jun 26, 2024 19:21
== END 2024-06-26 22:30 | disposition short-term general hospital (02) | DRG 383 ==
LOC: EDBD 12:56 → ER 12:56 → OVERFLOW 18:55 → WEST WING 20:50 → TELE-WESTW 06-22 09:46 → TELE-CENTR 06-25 02:47 → ICU WEST 06-25 13:45
PROVIDERS: ADMIT Nurse Practitioner Acute Care; ATTEND Nurse Practitioner Acute Care
PROC: 0BH17EZ Insertion of Endotracheal Airway into Trachea, Via Natural or Artificial Opening (ICD-10-PCS; principal; 2024-06-25)
PROC: 5A1945Z Respiratory Ventilation, 24-96 Consecutive Hours (ICD-10-PCS; 2024-06-25)
PROC: 02HV33Z Insertion of Infusion Device into Superior Vena Cava, Percutaneous Approach (ICD-10-PCS; 2024-06-25)
PROC: B548ZZA Ultrasonography of Superior Vena Cava, Guidance (ICD-10-PCS; 2024-06-25)
DX: L03.211 Cellulitis of face (principal); J96.01 Acute respiratory failure with hypoxia; R57.9 Shock, unspecified; G40.911 Epilepsy, unspecified, intractable, with status epilepticus; D72.829 Elevated white blood cell count, unspecified; J45.909 Unspecified asthma, uncomplicated; E66.01 Morbid (severe) obesity due to excess calories; H55.00 Unspecified nystagmus; Z68.38 Body mass index [BMI] 38.0-38.9, adult; Z88.0 Allergy status to penicillin; Z79.891 Long term (current) use of opiate analgesic; Z79.899 Other long term (current) drug therapy; Z98.891 History of uterine scar from previous surgery; Z86.73 Personal history of transient ischemic attack (TIA), and cerebral infarction without residual deficits
CPT/HCPCS: 36415; 36556; 36600; 70450; 70486; 70551; 71045; 76937; 80048; 80053; 80202; 82565; 82805; 82962; 83605; 83735; 84146; 85025; 85610; 85730; 87040; 87070; 87081; 87086; 87205; 94002; 94003; G0378; J1956; J2405; J2470; J2704

== ENCOUNTER 2024-10-27 18:40 | Inpatient (IN) | payer MEDICAID ==
[~2024-10-27] VITALS: Ht 154.9 cm; Wt 86.3 kg
[2024-10-27] MEDS: LORazepam 2MG/ML-1ML VIAL IM ONE (19:13)
[2024-10-27] MEDS: LORazepam 2MG/ML-1ML VIAL ONE (19:13)
[2024-10-27 19:41] LABS: Chloride 105 mmol/L (98-107); Potassium 3.6 mmol/L (3.5-5.1); Sodium 140 mmol/L (136-145)
[2024-10-27 19:42] LABS: Anion Gap 13 (5-15); Carbon Dioxide 22 mmol/L (20-31)
[2024-10-27 19:43] LABS: Calcium 9.5 mg/dL (8.7-10.4)
[2024-10-27 19:48] LABS: BUN/Creatinine Ratio 10.8 (10.0-20.0)
[2024-10-27 19:49] LABS: Blood Urea Nitrogen 8 mg/dL (9-23); Glucose 134 mg/dL (74-106)
[2024-10-27] MEDS: levETIRAcetam 1000 mg/100ml 100 ML IV ONE (20:06)
--- NOTE | 2024-10-27 20:40 | ECG ---
[facility] Test Date: 2024-10-27 Test Time: 20:38:53 Pat Name: SIMÓN COCHRAN Department: ER Room: [address] [place] [address] Gender: F Contract Negotiation Specialist: PABLO : [id number] Requested By: ROLA DHILLON Order Number: [id number] Reading MD: Lenny Kat Measurements Intervals [place] Rate: 87 P: 21 NC: 226 QRS: 55 QRSD: 88 T: 40 QT: 368 QTc: 443 Interpretive Statements Sinus rhythm Prolonged NC interval Electronically Signed On 10-30-2024 22:02:57 PDT by Lenny Kat Please click the below link to view image of tracing.
[2024-10-27 22:06] LABS: Hematocrit 36.6 % (36.0-46.0); Hemoglobin 12.5 g/dL (12.2-16.2); Mean Corpuscular Hemoglobin 31.7 pg (28.0-32.0); Mean Corpuscular Volume 92.3 fL (80.0-100.0); Nucleated Red Blood Cells % 0.1 %
[2024-10-27] MEDS: ONDANSETRON HCL 4 MG/2 ML VIAL IV ONE (22:21)
[2024-10-27 23:11] LABS: Urine Protein, UAD Negative (Negative)
--- NOTE | 2024-10-27 23:57 | ED.PDOC ---
History of Present Illness HPI Comments This patient is a morbidly obese 39-year-old female who arrives the ED today via EMS for evaluation of nausea vomiting concerns as well as an unwitnessed seizure event. Patient states she has a history of seizures, regularly take medication to address that concern. Additionally complaints of nausea, vomiting and generalized weakness followed. Patient denies any fever. Patient mildly tachycardic at arrival. Chief Complaint: Nausea/Vomiting Time Seen by MD: 18:46 Primary Care Provider: none Reviewed Notes: Nurses Notes, Aids Nurse Notes Allergies: Coded Allergies: Penicillins (Verified Allergy, Unknown, 03/14/24) Home Meds Active Scripts Hydrocodone-Acetaminophen (Hydrocodone Bitartrate/AC 5-325 mg) 1 Tab Tab, 1 TAB PO Q8HP PRN for 7 Days, #21 TAB Prov:EFREM OSEGUERA MD 06/20/24 Clindamycin Hcl (Clindamycin Hcl) 300 Mg Cap, 1 CAP PO TID, #21 CAP Prov:EFREM OSEGUERA MD 06/20/24 Information Source: Patient, Emergency Med Personnel Mode of Arrival: EMS Severity: Moderate Timing: Hours Duration: Intermittent Prehospital treatment: None Past Medical History PAST MEDICAL HISTORY: Asthma, Seizures Surgical History: , Tonsillectomy GUEST SERVICE HOST History: No Pertinent GUEST SERVICE HOST History, Other Family History Family History: Unknown Social History Smoker: Non-Smoker Alcohol: Occasionally Drugs: Denies Drug Use Lives In: Home Constitutional: denies: chills, diaphoresis, fatigue, fever, malaise, sweats, weakness, others EENTM: denies: blurred vision, double vision, ear bleeding, ear discharge, ear drainage, ear pain, ear ringing, eye pain, eye redness, hearing loss, mouth pain, mouth swelling, nasal discharge, nose bleeding, nose congestion, nose pain, photophobia, tearing, throat pain, throat swelling, voice changes, others Respiratory: denies: cough, hemoptysis, orthopnea, SOB at rest, shortness of breath, SOB with excertion, stridor, wheezing, others Cardiovascular: denies: chest pain, dizzy spells, diaphoresis, Dyspnea on exertion, edema, irregular heart beat, left arm pain, lightheadedness, palpitations, PND, syncope, others Gastrointestinal: reports: nausea, vomiting; denies: abdomen distended, abdominal pain, blood streaked bowels, constipated, diarrhea, dysphagia, diffi culty swallowing, hematemesis, melena, poor appetite, poor fluid intake, rectal bleeding, rectal pain, others Genitourinary: denies: abnormal vagina bleeding, burning, dyspareunia, dysuria, flank pain, frequency, hematuria, incontinence, pain, , vagina discharge, urgency, others Neurological: reports: seizure; denies: dizziness, fainting, headache, left sided numbness, left sided weakness, numbness, paresthesia, pre-existing deficit, right sided numbness, right sided weakness, speech problems, tingling, tremors, weakness, others Musculoskeletal: denies: back pain, gout, joint pain, joint swelling, muscle pain, muscle stiffness, neck pain, others Integumetry: denies: bruises, change in color, change in hair/nails, dryness, laceration, lesions, lumps, rash, wounds, others Allergic/Immunocompromised: denies: Difficulty Healing, Frequent Infections, Hives, Itching, others Hematologic/Lymphatic: denies: anemia, blood clots, easy bleeding, easy bruising, swollen glands, others Endocrine: denies: excessive hunger, excessive sweating, excessive thirst, excessive urination, flushing, intolerance to cold, intolerance to heat, unexplained weight gain, unexplained weight loss, others Psychiatric: denies: anxiety, bipolar disorder, depression, hopeless, panic disorder, schizophrenia, sleepless, suicidal, others Physical Exam General Appearance: Moderate Distress (Moderate distress due to nausea and vomiting concerns.), Obese HEENT: Normal ENT Inspection, Pharynx Normal, TMs Normal Neck: Full Range of Motion, Non-Tender, Normal, Normal Inspection Respiratory: Chest Non-Tender, Lungs Clear, No Accessory Muscle Use, No Respiratory Distress, Normal Breath Sounds Cardiovascular: No Edema, No JVD, No Murmur, No Gallop, Normal Peripheral Pulses, Regular Rate/Rhythm Breast Exam: Deferred Gastrointestinal: Other (Mild diffuse epigastric tenderness to palpation. No pulsatile masses. Difficult to assess due to body habitus.) Genitalia: Deferred Pelvic: Deferred Rectal: Deferred Extremities: No calf tenderness, Normal capillary refill, Normal inspection, Normal range of motion, Non-tender, No pedal edema Neurologic: Alert, No Motor Deficits, Normal Affect, Normal Mood, No Sensory Deficits Cerebellar Function: NOT DONE Reflexes: NOT DONE Skin: Dry, Normal Color, Warm Lymphatic: No Adenopathy Was a procedure done? Was a procedure done?: No Differential Dx Considerations may include: Seizure, viral gastroenteritis, sepsis, electrolyte abnormality, food poisoning, UTI X-Ray, Labs, Meds, VS Vital Signs Date Time Temp Pulse Resp B/P (MAP) Pulse Ox O2 Delivery O2 Flow Rate FiO2 10/28/24 00:00 75 14 124/76 (92) 95 10/27/24 22:13 98.1 74 15 128/80 (96) 100 98.1 10/27/24 22:10 Room Air* 0 21 10/27/24 20:38 87 10/27/24 20:34 89 16 138/92 (107) 100 10/27/24 18:45 98.9 106 18 127/78 100 98.9 Lab Test 10/27/24 22:45 10/27/24 21:44 10/27/24 19:21 Range/Units Urine Color Light-yellow Yellow Urine Clarity Clear Clear Urine pH 6.5 5.0-9.0 Urine Specific [place] 1.015 1.001-1.035 Urine Protein Negative Negative Urine Ketones Trace Negative Urine Blood Negative Negative /uL Urine Nitrite Negative Negative Urine Bilirubin Negative Negative Urine Urobilinogen Normal Negative mg/dL Urine Leukocyte Esterase Negative Negative /uL Urine RBC 1 0 - 4 /hpf Urine Microscopic WBC < 1 0-5 /HPF Urine Squamous Epithelial Cells Few <5 /hpf Urine Bacteria None seen None Seen /hpf Urine Mucus Few None Seen Urine Glucose Normal Normal mg/dL White Blood Count 9.8 4.4-10.8 10^3/uL Red Blood Count 3.96 L 4.0-5.20 10^6/uL Hemoglobin 12.5 12.2-16.2 g/dL Hematocrit 36.6 36.0-46.0 % Mean Corpuscular Volume 92.3 80.0-100.0 fL Mean Corpuscular Hemoglobin 31.7 28.0-32.0 pg Mean Corpuscular Hemoglobin Concent 34.3 32.0-36.0 g/dL Red Cell Distribution Width 13.9 11.8-14.3 % Platelet Count 259 140-450 10^3/uL Mean Platelet Volume 9.4 6.9-10.8 fL Neutrophils (%) (Auto) 87.3 H 37.0-80.0 % Lymphocytes (%) (Auto) 7.5 L 10.0-50.0 % Monocytes (%) (Auto) 4.4 0.0-12.0 % Eosinophils (%) (Auto) 0.3 0.0-7.0 % Basophils (%) (Auto) 0.5 0.0-2.0 % Neutrophils # (Auto) 8.6 1.6-8.6 10 ^3/uL Lymphocytes # (Auto) 0.7 0.4-5.4 10 ^3/uL Monocytes # (Auto) 0.4 0-1.3 10 ^3/uL Eosinophils # (Auto) 0 0-0.8 10 ^3/uL Basophils # (Auto) 0 0-0.2 10 ^3/uL Nucleated Red Blood Cells 0.1 % B-Type Natriuretic Peptide 56.36 0-100 pg/mL Sodium Level 140 136-145 mmol/L Potassium Level 3.6 3.5-5.1 mmol/L Chloride Level 105 98-107 mmol/L Carbon Dioxide Level 22 20-31 mmol/L Anion Gap 13 5-15 Blood Urea Nitrogen 8 L 9-23 mg/dL Creatinine 0.74 0.550-1.02 mg/dL Glomerular Filtration Rate Calc 105 >90 mL/min BUN/Creatinine Ratio 10.8 10.0-20.0 Serum Glucose 134 H 74-106 mg/dL Calcium Level 9.5 8.7-10.4 mg/dL Troponin I High Sensitivity < 3 L </=34 ng/L Current Medications Medications (Trade) Dose Ordered Sig/Jayme Route Start Time Stop Time Status Last Admin Ondansetron HCl (Zofran) 4 mg ONCE ONCE IV 10/27/24 19:00 10/27/24 19:01 DC 10/27/24 22:21 Levetiracetam 100 ml @ 400 mls/hr ONCE ONCE IV 10/27/24 19:00 10/27/24 19:14 DC 10/27/24 20:06 Lorazepam (Ativan Inj) 2 mg ONCE ONCE IM 10/27/24 19:15 10/27/24 19:16 DC 10/27/24 19:13 Lorazepam (Ativan Inj) 1 mg ONCE ONCE IV 10/28/24 03:00 10/28/24 03:01 DC 10/28/24 03:07 Midazolam HCl (Versed Injection) 2 mg ONCE ONCE IV 10/28/24 03:30 10/28/24 03:31 DC 10/28/24 03:44 X-Ray, Labs, Meds, VS Comment All studies performed the ED were evaluated by me personally. Serum and urinalysis were all unremarkable for any systemic concerns. Patient had multiple seizure events while at the facility. Patient will be admitted for a neuro consultation tomorrow as well as management of any additional seizures. Patient had a late addition to her chart stating that she was a [facility] patient. [facility] will be notified and patient will be transferred for continued evaluation. Addendum by Dr. Shawnee Gonzalez: 39-year-old female with a history of seizures endorsed to me by [facility]. Patient had recurrent tonic-clonic seizure activity which transiently resolved with IV V ersed. I also ordered Dilantin 1 g IV. Patient again had an episode of tonic- clonic activity, however when a rectal probe was inserted to check rectal temp, the patient withdrew and seizure activity stopped, raising concern for pseudo-seizure. Case was discussed with Dr. Merida at [facility], who advised us that the patient is supposed to be taking Trileptal, Vimpat and prn intranasal diazepam for seizures. Is unclear whether or not the patient is compliant. Dr. Merida agreed the patient does not appear stable for transfer at this time, so authorized us to admit the patient here. Authorization [id number]. Plan is to admit the patient for ongoing seizure control and Neurology evaluation. Time of 1ST Reevaluation: 23:56 Reevaluation 1ST: Improved Consultation: PCP, Neurology Patient Education/Counseling: Diagnosis, Treatment Family Education/Counseling: Diagnosis, Treatment SEPSIS Sepsis Screen Date sepsis recognized/suspect: Oct 27, 2024 Time Sepsis recognized/suspect: 1844 Recent Procedure: No On Antibiotic Therapy: No Respiratory Rate >20: No Heart Rate >90: Yes Temp<36 C (96.8 F) or >38.3 C: No SBP <90 or MAP <65 mmHG: No New Acute Mental Status Change: No Is the patient on CPAP, BIPAP,: No SEPSIS EXCLUSION NOTE: Sepsis Exclusion Note: Patient presents with SIRS criteria, but the SIRS response is attributed to status epilepticus], not a suspected infection. Sepsis bundle is not initiated at this time, due to this reason. Further management will focus on the treatment of the above condition (s). Physician Orders Heplock Iv (10/27/24 18:50) Insert/Manage Urinary Catheter QSHIFT (10/27/24 22:47) Vital Signs Date Time Temp Pulse Resp B/P (MAP) Pulse Ox O2 Delivery O2 Flow Rate FiO2 10/28/24 00:00 75 14 124/76 (92) 95 10/27/24 22:13 98.1 74 15 128/80 (96) 100 98.1 10/27/24 22:10 Room Air* 0 21 10/27/24 20:38 87 10/27/24 20:34 89 16 138/92 (107) 100 10/27/24 18:45 98.9 106 18 127/78 100 98.9 Laboratory Tests Test 10/27/24 21:44 White Blood Count 9.8 10^3/uL (4.4-10.8) Medications Medications Dose Ordered Sig/Jayme Route Start Time Stop Time Status Last Admin Dose Admin Levetiracetam 100 ml @ 400 mls/hr ONCE ONCE IV 10/27/24 19:00 10/27/24 19:14 DC 10/27/24 20:06 Lorazepam 1 mg ONCE ONCE IV 10/28/24 03:00 10/28/24 03:01 DC 10/28/24 03:07 Lorazepam 2 mg ONCE ONCE IM 10/27/24 19:15 10/27/24 19:16 DC 10/27/24 19:13 Midazolam HCl 2 mg ONCE ONCE IV 10/28/24 03:30 10/28/24 03:31 DC 10/28/24 03:44 Ondansetron HCl 4 mg ONCE ONCE IV 10/27/24 19:00 10/27/24 19:01 DC 10/27/24 22:21 Departure 1 Departure Time of Disposition: 23:57 Impression: Primary Impression: Nausea and vomiting Additional Impression: Status epilepticus Disposition: 09 ADMITTED INPATIENT Admit to: [facility] Condition: Guarded Critical Care Note Critical Care Time?: Yes (45 min-critical care time only) Critical care comment: Critical care time including multiple bedside re-evaluations, review of lab studies, and discussion of the case with the consulting and admitting providers. Patient is high risk for neurologic decompensation. Stability Stability form required: No Heart Score Heart Score: Heart Score Response (Comments) Value History N/A 0 EKG N/A 0 Age N/A 0 Risk Factors N/A 0 Troponin N/A 0 Total 0 ROLA DHILLON Oct 27, 2024 23:57 BEATRIZ SAUL MD Oct 28, 2024 04:20
[2024-10-28] MEDS: LORazepam 2MG/ML-1ML VIAL IV ONE (03:07)
[2024-10-28] MEDS: LORazepam 2MG/ML-1ML VIAL ONE (03:07)
[2024-10-28] MEDS: MIDAZOLAM HCL 2MG/2ML 2ml VIAL (1mg/ml) ONE (03:21)
[2024-10-28] MEDS: MIDAZOLAM HCL 2MG/2ML 2ml VIAL (1mg/ml) IV ONE (03:44)
[2024-10-28] MEDS: levETIRAcetam 1000 mg/100ml 100 ML IV ONE (03:56)
[2024-10-28] MEDS: PHENYTOIN IV DILANTIN 1,000 MG in SODIUM CHL 0.9% 250 ML IV ONE (04:02)
[2024-10-28] MEDS: PHENYTOIN SODIUM 50 MG/ML 2ML VIAL IV ONE (04:04)
[2024-10-28] MEDS: PHENYTOIN SODIUM 50 MG/ML 5ML INJ VIAL IV ONE (04:04)
--- NOTE | 2024-10-28 05:43 | DVHHP2 ---
History of Present Illness Reason for Visit: Status epilepticus History of Present Illness The patient is a 39-year-old female with past medical history of asthma and seizures who presented to [facility] ED for evaluation of unwitnessed seizures event associated with nausea, vomiting, and generalized weakness. Patient was seen and evaluated in the ED, laboratory data shows WBC 9.8, platelets 259, sodium 140, potassium 3.6, BUN 8, creatinine 0.74, glucose 134, calcium 9.5, troponin < 3, BNP 56.36, blood pressure 124/76, heart rate 75, temperature 98.1 F, O2 saturation 99% on room air. Head CT without without contrast results pending, please see medication orders section in the computer. On my assessment, patient denied chest pain, no headache, no dizziness, no diaphoresis, no shortness a breath, no abdominal pain, no diarrhea, no nausea, no vomiting at this moment, no fever, no chest. Patient was admitted for further evaluation and medical management. Past Medical History Asthma, Seizures Past Surgical History , Tonsillectomy Family History Reviewed, noncontributory to the management of this case. Past Social History The patient lives at home, denies smoking, alcohol or illicit drugs abuse. Review of Systems Constitutional: Yes: Weakness; No: Fever, Chills, Sweats, Malaise, Other Eyes: No: Pain, Vision change, Conjunctivae inflammation, Eyelid inflammation, Other, Redness Respiratory: No: Cough, Dry, Shortness of breath, SOB with excertion, Wheezing, Hemoptysis, Pleuritic Pain, Sputum, Wheezing, Other Cardiovascular: No: Chest Pain, Palpitations, Orthopnea, Paroxysmal Noc. Dyspnea, Edema, Lt Headedness, Other Gastrointestinal: Nausea, Vomiting; No: Abdominal Pain, Diarrhea, Constipation, Melena, Hematochezia, Other Genitourinary: No Dysuria, No Frequency, No Incontinence, No Hematuria, No Retention, No Other Musculoskeletal: No: other, neck pain, shoulder pain, arm pain, back pain, hand pain, leg pain, foot pain Skin: No: Rash, Lesions, Jaundice, Bruising, Other Neurological: Seizures; No: Weakness, Numbness, Incoordination, Change in speech, Confusion, Other Allergies: Coded Allergies: Penicillins (Verified Allergy, Unknown, 03/14/24) Exam Vital Signs Vital Signs Date Time Temp Pulse Resp B/P (MAP) Pulse Ox O2 Delivery O2 Flow Rate FiO2 10/28/24 00:00 75 14 124/76 (92) 95 10/27/24 22:13 98.1 98.1 10/27/24 22:10 Room Air* 0 21 General Appearance: Alert, Oriented X3, Cooperative, No acute distress HEENT: Atraumatic, PERRLA, EOMI, Mucous membr. moist/pink Respiratory: Clear to auscultation, Normal air movement Cardiovascular: Regular rate, Normal S1, Normal S2, No murmurs Abdominal: Normal bowel sounds, Soft, No tenderness, No hepatospenomegaly, No masses Extremities: No clubbing, No cyanosis, No edema, Normal pulses, No tenderness/swelling Skin: No rashes, No breakdown, No significant lesion Neuro: Normal speech, Normal tone, Sensation intact, Cranial nerves 3-12 NL, Reflexes 2+, Other (Generalized weakness) Psych/Mental Status: Mental status NL, Mood NL Labs/Xrays Labs Test 10/27/24 22:45 10/27/24 21:44 10/27/24 19:21 Range/Units Urine Color Light-yellow Yellow Urine Clarity Clear Clear Urine pH 6.5 5.0-9.0 Urine Specific [place] 1.015 1.001-1.035 Urine Protein Negative Negative Urine Ketones Trace Negative Urine Blood Negative Negative /uL Urine Nitrite Negative Negative Urine Bilirubin Negative Negative Urine Urobilinogen Normal Negative mg/dL Urine Leukocyte Esterase Negative Negative /uL Urine RBC 1 0 - 4 /hpf Urine Microscopic WBC < 1 0-5 /HPF Urine Squamous Epithelial Cells Few <5 /hpf Urine Bacteria None seen None Seen /hpf Urine Mucus Few None Seen Urine Glucose Normal Normal mg/dL White Blood Count 9.8 4.4-10.8 10^3/uL Red Blood Count 3.96 L 4.0-5.20 10^6/uL Hemoglobin 12.5 12.2-16.2 g/dL Hematocrit 36.6 36.0-46.0 % Mean Corpuscular Volume 92.3 80.0-100.0 fL Mean Corpuscular Hemoglobin 31.7 28.0-32.0 pg Mean Corpuscular Hemoglobin Concent 34.3 32.0-36.0 g/dL Red Cell Distribution Width 13.9 11.8-14.3 % Platelet Count 259 140-450 10^3/uL Mean Platelet Volume 9.4 6.9-10.8 fL Neutrophils (%) (Auto) 87.3 H 37.0-80.0 % Lymphocytes (%) (Auto) 7.5 L 10.0-50.0 % Monocytes (%) (Auto) 4.4 0.0-12.0 % Eosinophils (%) (Auto) 0.3 0.0-7.0 % Basophils (%) (Auto) 0.5 0.0-2.0 % Neutrophils # (Auto) 8.6 1.6-8.6 10 ^3/uL Lymphocytes # (Auto) 0.7 0.4-5.4 10 ^3/uL Monocytes # (Auto) 0.4 0-1.3 10 ^3/uL Eosinophils # (Auto) 0 0-0.8 10 ^3/uL Basophils # (Auto) 0 0-0.2 10 ^3/uL Nucleated Red Blood Cells 0.1 % B-Type Natriuretic Peptide 56.36 0-100 pg/mL Sodium Level 140 136-145 mmol/L Potassium Level 3.6 3.5-5.1 mmol/L Chloride Level 105 98-107 mmol/L Carbon Dioxide Level 22 20-31 mmol/L Anion Gap 13 5-15 Blood Urea Nitrogen 8 L 9-23 mg/dL Creatinine 0.74 0.550-1.02 mg/dL Glomerular Filtration Rate Calc 105 >90 mL/min BUN/Creatinine Ratio 10.8 10.0-20.0 Serum Glucose 134 H 74-106 mg/dL Calcium Level 9.5 8.7-10.4 mg/dL Troponin I High Sensitivity < 3 L </=34 ng/L SEPSIS Sepsis Screen Date sepsis recognized/suspect: Oct 28, 2024 Time Sepsis recognized/suspect: 0009 Recent Procedure: No On Antibiotic Therapy: No Respiratory Rate >20: No Heart Rate >90: No Temp<36 C (96.8 F) or >38.3 C: No SBP <90 or MAP <65 mmHG: No New Acute Mental Status Change: No Is the patient on CPAP, BIPAP,: No Physician Orders Insert/Manage Urinary Catheter QSHIFT (10/27/24 22:47) Vital Signs Date Time Temp Pulse Resp B/P (MAP) Pulse Ox O2 Delivery O2 Flow Rate FiO2 10/28/24 00:00 75 14 124/76 (92) 95 10/27/24 22:13 98.1 74 15 128/80 (96) 100 98.1 10/27/24 22:10 Room Air* 0 21 Laboratory Tests Test 10/27/24 21:44 White Blood Count 9.8 10^3/uL (4.4-10.8) Medications Medications Dose Ordered Sig/Jayme Route Start Time Stop Time Status Last Admin Dose Admin Levetiracetam 100 ml @ 400 mls/hr ONCE ONCE IV 10/27/24 19:00 10/27/24 19:14 DC 10/27/24 20:06 400 MLS/HR Lorazepam 1 mg ONCE ONCE IV 10/28/24 03:00 10/28/24 03:01 DC 10/28/24 03:07 1 MG Lorazepam 2 mg ONCE ONCE IM 10/27/24 19:15 10/27/24 19:16 DC 10/27/24 19:13 2 MG Midazolam HCl 2 mg ONCE ONCE IV 10/28/24 03:30 10/28/24 03:31 DC 10/28/24 03:44 2 MG Ondansetron HCl 4 mg ONCE ONCE IV 10/27/24 19:00 10/27/24 19:01 DC 10/27/24 22:21 4 MG Phenytoin Sodium 1000 mg/Sodium Chloride 270 ml @ 405 mls/hr ONCE ONCE IV 10/28/24 03:30 10/28/24 04:09 DC 10/28/24 04:02 405 MLS/HR Assessment/Plan Assessment/Plan Status epilepticus Nausea and vomiting Generalized weakness Plan 1. Admit to telemetry unit 2. Breathing treatment 3. Pain control management 4. Management of fluids and electrolytes 5. Consultation for Neurology 6. Diagnostic tests head CT 7. DVT prophylaxis on SCDs 8. Repeat labs CBC, CMP in a.m. 9. Continue with current medical management 10. Treatment plan discussed with patient and RN. Patient verbalized understa nding. Plan discussed with: Patient, Other (RN) Problem List: (1) Status epilepticus (2) Nausea and vomiting (3) Generalized weakness Date of Service: Oct 28, 2024 Billing Provider: CARLOS CONTRERAS DNP Common Visit Codes: [id number] INP/OBS CARE (HIGH) CARLOS CONTRERAS DNP Oct 28, 2024 05:43
[2024-10-28] MEDS ORDERED: IPRATROPIUM BROM 0.5 MG/2.5ML INH SOL NEB PRN (05:45)
[2024-10-28] MEDS ORDERED: DOCUSATE SOD 100 MG CAP PO PRN (05:45)
[2024-10-28] MEDS ORDERED: HYDROcodone-ACET 5/325MG TAB PO PRN (05:45)
[2024-10-28] MEDS ORDERED: MORPHINE SULFATE INJ 2 MG/ml SYRG IV PRN (05:45)
[2024-10-28] MEDS ORDERED: ACETAMINOPHEN 325 MG TAB PO PRN (05:45)
[2024-10-28] MEDS ORDERED: ONDANSETRON HCL 4 MG/2 ML VIAL IV PRN (05:45)
[2024-10-28] MEDS ORDERED: NITROGLYCERIN 0.4 MG SL TAB SL PRN (05:45)
[2024-10-28] MEDS ORDERED: ALBUTEROL SULF 2.5 MG/0.5ML(0.5%) NEB SOLN NEB PRN (05:45)
[2024-10-28] MEDS: LORazepam 2MG/ML-1ML VIAL IV PRN (05:54)
[2024-10-28] MEDS: SODIUM CHLOR 0.9% PF (SALINE LOCK) 10ML VIAL/SYR IV SCH (05:54)
[2024-10-28 06:24] LABS: Hematocrit 38.0 % (36.0-46.0); Hemoglobin 12.7 g/dL (12.2-16.2); Mean Corpuscular Hemoglobin 31.5 pg (28.0-32.0); Mean Corpuscular Volume 94.6 fL (80.0-100.0); Nucleated Red Blood Cells % 0.1 %
[2024-10-28 06:41] LABS: Alanine Aminotransferase 21 U/L (7-40); Albumin 4.2 g/dL (3.2-4.8); Alkaline Phosphatase 63 U/L (46-116); Anion Gap 10 (5-15); Bilirubin, Total 0.3 mg/dL (0.2-1.0); Calcium 9.1 mg/dL (8.7-10.4); Carbon Dioxide 25 mmol/L (20-31); Chloride 106 mmol/L (98-107); Sodium 141 mmol/L (136-145); Total Protein 6.6 g/dL (5.7-8.2)
[2024-10-28 06:49] LABS: BUN/Creatinine Ratio 7.2 (10.0-20.0); Blood Urea Nitrogen < 5 mg/dL (9-23); Glucose 107 mg/dL (74-106); Potassium 3.4 mmol/L (3.5-5.1)
--- NOTE | 2024-10-28 06:59 | DVH ---
EXAM: CT HEAD WITHOUT CONTRAST INDICATION: Persistent seizures TECHNIQUE: CT of the head without intravenous contrast. Radiation Dose : 1. Head: CT Dose: CTDI volume is 54.36 mGy. Dose-length product is 962.64 mGy*cm The dose indicators for CT are the volume Computed Tomography (CT) Dose Index (CTDIvol) and the Dose Length Product (DLP), and are measured in units of mGy and mGy-cm, respectively. These indicators are not patient dose, but values generated from the CT scanner acquisition factors. The report includes radiation exposure data for exposures received during this examination. COMPARISON: MRI BRAIN HEAD WO CONTRAST on DOS: 06/24/24, CT HEAD WITHOUT CONTRAST on DOS: 06/22/24, CT MAXILLOFACIAL WITHOUT on DOS: 06/21/24 FINDINGS: There is no evidence of acute intracranial hemorrhage, extra-axial collection, mass effect, midline s hift, herniation or hydrocephalus. The ventricles, sulci and cisterns are age appropriate. The doshi-white differentiation is intact. The visualized paranasal sinuses and mastoid air cells are clear. The surrounding soft tissues and osseous structures are unremarkable. IMPRESSION: 1. No acute intracranial abnormality. Radiation optimization: All CT scans at this facility use at least one of these dose optimization benny hniques: automated exposure control mA and/or kV adjustment per patient size (includes targeted exam s where dose is matched to clinical indication) or iterative reconstruction.
[2024-10-28 07:18] VITALS: O2SAT 99
[2024-10-28 07:31] VITALS: BP 105/61; PULSE 105; RESP 27; TEMP 98.1; O2SAT 99
[2024-10-28 07:45] VITALS: PULSE 102; RESP 16; O2SAT 97
[2024-10-28] MEDS: levETIRAcetam 1000 mg/100ml 100 ML IV SCH (10:05)
[2024-10-28 18:00] VITALS: O2SAT 100
--- NOTE | 2024-10-28 18:35 | DVHPN2 ---
Subjective Overnight events noted. Patient's has a frequent generalized tonic colonic seizures. Changes from previous H/P or p: No Changes Eyes: No Pain, No Vision change, No Conjunctivae inflammation, No Eyelid inflammation, No Other, No Redness Cardiovascular: No Chest Pain, No Palpitations, No Orthopnea, No Paroxysmal Noc. Dyspnea, No Edema, No Lt Headedness, No Other Respiratory: No Cough, No Dry, No Shortness of breath, No SOB with excertion, No Wheezing, No Hemoptysis, No Pleuritic Pain, No Sputum, No Other Gastrointestinal: Nausea, Vomiting; No Abdominal Pain, No Diarrhea, No Constipation, No Melena, No Hematochezia, No Other Genitourinary: No Dysuria, No Frequency, No Incontinence, No Hematuria, No Retention, No Other Musculoskeletal: No other, No neck pain, No shoulder pain, No arm pain, No back pain, No hand pain, No leg pain, No foot pain Skin: No Rash, No Lesions, No Jaundice, No Bruising, No Other Objective Vitals Vital Signs Date Time Temp Pulse Resp B/P (MAP) Pulse Ox O2 Delivery O2 Flow Rate FiO2 10/28/24 16:00 98.7 88 16 133/82 (99) 100 98.7 10/28/24 07:45 Nasal Cannula* 2 28 Intake/Output Intake and Output 10/28/24 07:00 Output Total 150 ml Balance -150 ml Output Urine Total 150 ml Exam HEENT pupils are reactive Neck is supple CV is S1-S2 regular rate and rhythm Respiratory diminished breath sounds bases GI positive bowel sound Extremity no edema NIGHT MANAGER no motor deficit. Medications Current Medications Medications Dose Ordered Sig/Jayme Route Start Time Stop Time Status Last Admin Dose Admin Levetiracetam 100 ml @ 400 mls/hr BID IV 10/28/24 10:00 10/28/24 10:05 400 MLS/HR Lorazepam 1 mg Q2HP PRN IV 10/28/24 05:45 10/28/24 05:54 1 MG Albuterol 2.5 mg Q4HPRN PRN NEB 10/28/24 05:45 Ipratropium [place] 0.5 mg Q4HPRN PRN NEB 10/28/24 05:45 Sodium Chloride 10 ml Q8HR IV 10/28/24 06:00 10/28/24 14:00 10 ML Acetaminophen/ Hydrocodone Bitart 1 tab Q4HP PRN PO 10/28/24 05:45 Ondansetron HCl 4 mg Q4HP PRN IV 10/28/24 05:45 Docusate Sodium 100 mg BIDPRN PRN PO 10/28/24 05:45 Acetaminophen 650 mg Q6HP PRN PO 10/28/24 05:45 Nitroglycerin 0.4 mg Q5MINP PRN SL 10/28/24 05:45 Morphine Sulfate 2 mg Q30M PRN IV 10/28/24 05:45 Laboratory Results Laboratory Tests 10/28/24 06:06 Chemistry Test 10/27/24 19:21 10/28/24 06:06 Calcium Level 9.5 mg/dL (8.7-10.4) 9.1 mg/dL (8.7-10.4) Albumin 4.2 g/dL (3.2-4.8) Total Protein 6.6 g/dL (5.7-8.2) Cardiac Markers Test 10/27/24 21:44 B-Type Natriuretic Peptide 56.36 pg/mL (0-100) LFT Test 10/28/24 06:06 Alanine Aminotransferase (ALT) 21 U/L (7-40) Alkaline Phosphatase 63 U/L (46-116) Aspartate Amino Transferase (AST) 22 U/L (13-40) Total Bilirubin 0.3 mg/dL (0.2-1.0) Urinalysis Test 10/27/24 22:45 Urine Color Light-yellow (Yellow) Urine Clarity Clear (Clear) Urine pH 6.5 (5.0-9.0) Urine Specific [place] 1.015 (1.001-1.035) Urine Protein Negative (Negative) Urine Ketones Trace (Negative) Urine Blood Negative /uL (Negative) Urine Nitrite Negative (Negative) Urine Bilirubin Negative (Negative) Urine Urobilinogen Normal mg/dL (Negative) Urine Leukocyte Esterase Negative /uL (Negative) Urine RBC 1 /hpf (0 - 4) Urine Microscopic WBC < 1 /HPF (0-5) Urine Squamous Epithelial Cells Few /hpf (<5) Urine Bacteria None seen /hpf (None Seen) Urine Mucus Few (None Seen) Urine Glucose Normal mg/dL (Normal) Assessment/Plan Assessment/Plan 39-year-old young female with a known history of seizure disorder, chronic asthma, morbid obesity classII patient's presented to the hospital with a generalized tonic-clonic seizures 1. Breakthrough seizures 2. Seizure disorder 3. Gait disturbances 4. Chronic asthma 5. Morbid obesity classII -continue current seizure medication neurology consultation, transferred back to [place] if they have a bed. Plan discussed with: Patient My Orders Orders - VIVIANA TURNER MD Procedure Category Date Status Time Levetiracetam (Keppra) LAB 10/28/24 In Process 13:25 Date of Service: Oct 28, 2024 Billing Provider: VIVIANA TURNER MD Common Visit Codes: [id number] INP/OBS CARE(MOD) VIVIANA TURNER MD Oct 28, 2024 18:35
[2024-10-28 19:30] VITALS: PULSE 81; RESP 16; O2SAT 100
--- NOTE | 2024-10-28 21:03 | DVHINCON2 ---
Date of service: Oct 28, [address] Underwood Reason for Consultation Persistent seizures History of Present Illness Ms. Wen is a 39 years old female with a history of obesity, asthma, seizure disorder, she came to the [facility] on 10/27/2024 with a chief company of nausea, vomiting, gait disturbance. At this time, she is sleeping in the bed, awake, she is oriented x3 but only speaks very slowly with soft voice, as a result long time spent I saw her on 06/22/2024 for recurrent seizures She has a history of seizure disorder, she tells me she was on Trileptal 300 mg t.i.d., Vimpat 100 mg b.i.d. and she had good compliance. She had multiple se izures in the ER on 10/27/2024 with the longest one 9 minutes, per nurse report, the seizures did not look typical to epileptic seizure, during the seizure, when her arm was elevated, it dropped slowly back On 06/22/2024, she had multiple seizure attacks and I witnessed one of them, in that the patient was on her right side in her bed, with shaking movement in the arms, torso, that was not typical to seizure activity, her eyes were open/staring out or closed, or blinked frequently. The shaking intensity in the torso and upper extremities fluctuate during seizure activity, the seizure lasted for several minutes, with no change in her skin color, pulse ox was normal, but there was increased heart rate, there was no increased saliva, or abnormal skin secretion noticed. The patient was nonresponsive during the seizure activity Starting on 10/27/2024, she had nausea, vomiting, when she walked, she found she could not walk, she says she has weakness in the legs. On physical examination, the muscle power in her lower extremities was 3/5, but when she was rolling in the gurney, she could easily flex/extend the knees and hips easily Urinalysis, 10/27/2024: Unremarkable Phenytoin, 10/28/24: 13.8 (she was loaded with phenytoin in tongue stitcher on 10/27/2024) Keppra 10/28/2024: CBC, 10/28/2024: Unremarkable CMP, 10/28/2024: Unremarkable CT head, 06/22/2024: No acute intracranial abnormality CT head, 10/28/2024: No acute intracranial abnormality MRI head, 10/24/2024: 1. No acute intracranial process identified. 2. Suggestion right mesial temporal sclerosis. No evidence for focal cortical dysplasia, or doshi matter heterotopia. 3. Indeterminate subcentimeter left parietal scalp subcutaneous lesion with underlying subcutaneous edema. This may represent an infected sebaceous cyst or other etiologies. Recommend clinical correlation. Past Medical History Asthma, Seizures Past Surgical History , Tonsillectomy, Right femur surgery, right leg surgery Family History: Patient reports no known family medical history. Family History Patient reports no known family medical history. Social History Smoker: Non-Smoker Alcohol: Occasionally Drugs: Denies Drug Use Lives In: Home Allergies: Coded Allergies: Penicillins (Verified Allergy, Unknown, 03/14/24) Home Meds Active Scripts Hydrocodone-Acetaminophen (Hydrocodone Bitartrate/AC 5-325 mg) 1 Tab Tab, 1 TAB PO Q8HP PRN for 7 Days, #21 TAB Prov:EFREM OSEGUERA MD 06/20/24 Clindamycin Hcl (Clindamycin Hcl) 300 Mg Cap, 1 CAP PO TID, #21 CAP Prov:EFREM OSEGUERA MD 06/20/24 Current Medications Current Medications Medications (Trade) Dose Ordered Sig/Jayme Route PRN Reason Start Time Stop Time Status Last Admin Levetiracetam 100 ml @ 400 mls/hr BID IV 10/28/24 10:00 10/28/24 10:05 Lorazepam (Ativan Inj) 1 mg Q2HP PRN IV ANXIETY 10/28/24 05:45 10/28/24 05:54 Albuterol (Ventolin Medneb) 2.5 mg Q4HPRN PRN NEB SHORTNESS OF BREATH 10/28/24 05:45 Ipratropium [place] (Atrovent Medneb) 0.5 mg Q4HPRN PRN NEB SHORTNESS OF BREATH 10/28/24 05:45 Sodium Chloride (Saline Lock Ns) 10 ml Q8HR IV 10/28/24 06:00 10/28/24 14:00 Acetaminophen/ Hydrocodone Bitart ([place] 5/325MG Tab) 1 tab Q4HP PRN PO MODERATE PAIN (4-6 PAIN SCALE) 10/28/24 05:45 Ondansetron HCl (Zofran) 4 mg Q4HP PRN IV NAUSEA / VOMITING 10/28/24 05:45 Docusate Sodium (Colace Capsule) 100 mg BIDPRN PRN PO FOR CONSTIPATION 10/28/24 05:45 Acetaminophen (Tylenol Tablet) 650 mg Q6HP PRN PO PAIN SCALE 1-3 OR TEMP>100.4 10/28/24 05:45 Nitroglycerin (Ntrostat Sublingual) 0.4 mg Q5MINP PRN SL FOR CHEST PAIN 10/28/24 05:45 Morphine Sulfate 2 mg Q30M PRN IV FOR CHEST PAIN 10/28/24 05:45 Review of Systems As above, the other systems are negative Vital Signs Vital Signs Date Time Temp Pulse Resp B/P (MAP) Pulse Ox O2 Delivery O2 Flow Rate FiO2 10/28/24 20:00 78 10/28/24 16:00 98.7 16 133/82 (99) 100 98.7 10/28/24 07:45 Nasal Cannula* 2 28 Physical Exam GENERAL EXAM: General: the patient is well developed and nourished. No acute distress. HEENT: Normocephalic, neck is supple, no carotid bruits. No mass. RESPIRATORY: Normal respiratory effort with symmetrical lung expansion. Lungs clear to auscultation. CARDIOVASCULAR: Regular rate and rhythm with no murmurs. S1, S2. ABDOMEN: Soft, nontender, normal bowel sound She has tenderness to light palpation in the whole spine, whole back NEUROLOGICAL: MENTAL STATUS: Awake and alert. Oriented to person, place, she knows year, the month, and date SPEECH, LANGUAGE, HIGHER CORTICAL FUNCTION: No aphasia, voice is weak, slow and soft CRANIAL NERVES: #2: Intact visual ott to confrontation.. #3,4,6: Pupils are equal, round and reactive. EOMs full and conjugate. #5: Facial sensation intact in all three divisions bilaterally. Mandibular strength intact. #7: Facial muscles symmetrical and strength intact. #8: Hearing grossly normal to voice. #9,10: Uvula and soft palate rise in the midline. Swallow and voice are normal. #11: Trapezius and sternomastoid strength intact bilaterally. #12: Tongue midline. No fasciculations or atrophy. SENSATION: Sensation to touch and pinprick is okay MOTOR: Normal tone in the upper and lower extremity. Normal muscle bulk. No fasciculations. No abnormal movements or posturing. Muscle strength of the major groups in the upper extremities is no less than 4/5, 3/5 in the lower extremities. REFLEXES: Deep tendon reflexes are symmetrical. No pathological reflexes. CEREBELLAR/COORDINATION: Deferred GAIT/STATION: Deferred Labs/Diagnostic Data Labs Test 10/28/24 15:25 10/28/24 06:06 10/27/24 22:45 10/27/24 21:44 Range/Units Phenytoin (Dilantin) Level 13.8 10-20 ug/mL White Blood Count 9.0 4.4-10.8 10^3/uL Red Blood Count 4.02 4.0-5.20 10^6/uL Hemoglobin 12.7 12.2-16.2 g/dL Hematocrit 38.0 36.0-46.0 % Mean Corpuscular Volume 94.6 80.0-100.0 fL Mean Corpuscular Hemoglobin 31.5 28.0-32.0 pg Mean Corpuscular Hemoglobin Concent 33.3 32.0-36.0 g/dL Red Cell Distribution Width 14.0 11.8-14.3 % Platelet Count 301 140-450 10^3/uL Mean Platelet Volume 8.8 6.9-10.8 fL Neutrophils (%) (Auto) 72.5 37.0-80.0 % Lymphocytes (%) (Auto) 18.2 10.0-50.0 % Monocytes (%) (Auto) 8.4 0.0-12.0 % Eosinophils (%) (Auto) 0.2 0.0-7.0 % Basophils (%) (Auto) 0.7 0.0-2.0 % Neutrophils # (Auto) 6.5 1.6-8.6 10 ^3/uL Lymphocytes # (Auto) 1.6 0.4-5.4 10 ^3/uL Monocytes # (Auto) 0.8 0-1.3 10 ^3/uL Eosinophils # (Auto) 0 0-0.8 10 ^3/uL Basophils # (Auto) 0.1 0-0.2 10 ^3/uL Nucleated Red Blood Cells 0.1 % Sodium Level 141 136-145 mmol/L Potassium Level 3.4 L 3.5-5.1 mmol/L Chloride Level 106 98-107 mmol/L Carbon Dioxide Level 25 20-31 mmol/L Anion Gap 10 5-15 Blood Urea Nitrogen < 5 L 9-23 mg/dL Creatinine 0.69 0.550-1.02 mg/dL Glomerular Filtration Rate Calc 113 >90 mL/min BUN/Creatinine Ratio 7.2 L 10.0-20.0 Serum Glucose 107 H 74-106 mg/dL Calcium Level 9.1 8.7-10.4 mg/dL Total Bilirubin 0.3 0.2-1.0 mg/dL Aspartate Amino Transferase (AST) 22 13-40 U/L Alanine Aminotransferase (ALT) 21 7-40 U/L Alkaline Phosphatase 63 46-116 U/L Total Protein 6.6 5.7-8.2 g/dL Albumin 4.2 3.2-4.8 g/dL Urine Color Light-yellow Yellow Urine Clarity Clear Clear Urine pH 6.5 5.0-9.0 Urine Specific [place] 1.015 1.001-1.035 Urine Protein Negative Negative Urine Ketones Trace Negative Urine Blood Negative Negative /uL Urine Nitrite Negative Negative Urine Bilirubin Negative Negative Urine Urobilinogen Normal Negative mg/dL Urine Leukocyte Esterase Negative Negative /uL Urine RBC 1 0 - 4 /hpf Urine Microscopic WBC < 1 0-5 /HPF Urine Squamous Epithelial Cells Few <5 /hpf Urine Bacteria None seen None Seen /hpf Urine Mucus Few None Seen Urine Glucose Normal Normal mg/dL B-Type Natriuretic Peptide 56.36 0-100 pg/mL Test 10/27/24 19:21 Range/Units Troponin I High Sensitivity < 3 L </=34 ng/L Assessment Frequent generalized seizure activity, with atypical feature Status epileptics with atypical feature Gait disturbance Bilateral lower extremity weakness Plan/Recommendation Monitoring Supportive treatment Telemetry Atbanner for seizure breakthrough Vimpat 100 mg b.i.d. Keppra 1000 mg IV b.i.d. for now Resume Trileptal 300 mg t.i.d. later More recommendation per clinical course Progress: Poor This medical document was created using an electronic medical record system with [employer] dictation system. Although this document has been carefully reviewed, there may still be some phonetic and typographical errors. These areas are purely typographical due to imperfections of the software programs, and do not reflect any compromise in the patient's medical care Plan discussed with: Other NAYAN RIOJAS MD Oct 28, 2024 21:03
[2024-10-29 00:30] VITALS: BP 111/63; PULSE 64; RESP 16; TEMP 98; O2SAT 98
[2024-10-29 03:00] VITALS: BP 112/81; PULSE 80; RESP 16; O2SAT 99
[2024-10-29 04:06] LABS: Hematocrit 37.6 % (36.0-46.0); Hemoglobin 12.6 g/dL (12.2-16.2); Mean Corpuscular Hemoglobin 31.8 pg (28.0-32.0); Mean Corpuscular Volume 94.7 fL (80.0-100.0); Nucleated Red Blood Cells % 0.1 %
[2024-10-29 04:13] LABS: Alanine Aminotransferase 23 U/L (7-40); Albumin 4.1 g/dL (3.2-4.8); Alkaline Phosphatase 65 U/L (46-116); Anion Gap 10 (5-15); BUN/Creatinine Ratio 9.2 (10.0-20.0); Calcium 9.1 mg/dL (8.7-10.4); Carbon Dioxide 26 mmol/L (20-31); Chloride 106 mmol/L (98-107); Glucose 86 mg/dL (74-106); Potassium 3.7 mmol/L (3.5-5.1); Sodium 142 mmol/L (136-145); Total Protein 6.5 g/dL (5.7-8.2)
[2024-10-29 04:14] LABS: Bilirubin, Total 0.4 mg/dL (0.2-1.0)
[2024-10-29 04:16] LABS: Blood Urea Nitrogen 7 mg/dL (9-23)
[2024-10-29 05:20] VITALS: O2SAT 97
[2024-10-29 05:23] VITALS: BP 108/67; PULSE 71; RESP 18; O2SAT 98
[2024-10-29 08:00] VITALS: PULSE 78; RESP 14; O2SAT 96
[2024-10-29] MEDS: LACOSAMIDE 100 MG in SODIUM CHL 0.9% 50 ML IV SCH (09:00)
[2024-10-29] MEDS ORDERED: LACOSAMIDE 200 mg/20ml VIAL IV SCH (10:00)
--- NOTE | 2024-10-29 10:35 | DVHPN2 ---
Progress Note - Dictate Date Seen: Oct 29, 2024 Medical Necessity Reason Pt with a Central, PICC or Fol: Yes The following are medically ne: Skelton Catheter Subjective Ms. Wen is a 39 years old female with a history of obesity, asthma, seizure disorder, she came to the [facility] on 10/27/2024 with a chief company of nausea, vomiting, gait disturbance. I saw her on 06/22/2024 for recurrent seizures I have seen and examined the patient, I have discussed with her nurse, she is doing fine, no seizure activity, alert and fully oriented, she is not happy because stay in the ER, she was not to be [facility] or be take up seizure to a room She denied, but nurse reported that she asked to be released home and she said she would go home herself Since 10/26 24, she has a gait disturbance, she says the muscle power is fine, but there was no coordination Urinalysis, 10/27/2024: Unremarkable Phenytoin, 10/28/24: 13.8 (she was loaded with phenytoin in gastroenterology nurse on 10/27/2024) Keppra 10/28/2024: CBC, 10/28/2024: Unremarkable CMP, 10/28/2024: Unremarkable CT head, 06/22/2024: No acute intracranial abnormality CT head, 10/28/2024: No acute intracranial abnormality MRI head, 10/24/2024: 1. No acute intracranial process identified. 2. Suggestion right mesial temporal sclerosis. No evidence for focal cortical dysplasia, or doshi matter heterotopia. 3. Indeterminate subcentimeter left parietal scalp subcutaneous lesion with underlying subcutaneous edema. This may represent an infected sebaceous cyst or other etiologies. Recommend clinical correlation. vital signs Vital Sign Date Time Temp Pulse Resp B/P (MAP) Pulse Ox O2 Delivery O2 Flow Rate FiO2 10/29/24 05:23 71 18 108/67 (81) 98 10/29/24 05:20 Nasal Cannula 3.0 10/29/24 05:20 32 10/29/24 00:30 98.0 98.0 medications Current Medications Medications Dose Ordered Sig/Jayme Route Start Time Stop Time Status Last Admin Dose Admin Levetiracetam 100 ml @ 400 mls/hr BID IV 10/28/24 10:00 10/28/24 21:39 400 MLS/HR Lorazepam 1 mg Q2HP PRN IV 10/28/24 05:45 10/29/24 06:42 1 MG Albuterol 2.5 mg Q4HPRN PRN NEB 10/28/24 05:45 Ipratropium [place] 0.5 mg Q4HPRN PRN NEB 10/28/24 05:45 Sodium Chloride 10 ml Q8HR IV 10/28/24 06:00 10/29/24 06:36 10 ML Acetaminophen/ Hydrocodone Bitart 1 tab Q4HP PRN PO 10/28/24 05:45 Ondansetron HCl 4 mg Q4HP PRN IV 10/28/24 05:45 Docusate Sodium 100 mg BIDPRN PRN PO 10/28/24 05:45 Acetaminophen 650 mg Q6HP PRN PO 10/28/24 05:45 Nitroglycerin 0.4 mg Q5MINP PRN SL 10/28/24 05:45 Morphine Sulfate 2 mg Q30M PRN IV 10/28/24 05:45 Lacosamide 100 mg BID IV 10/29/24 10:00 Oxcarbazepine 450 mg Q12HR PO 10/28/24 22:00 objective General: the patient is well developed and nourished. No acute distress. MENTAL STATUS: Awake and alert. Oriented to person, place, she knows year, the month, and date SPEECH, LANGUAGE, HIGHER CORTICAL FUNCTION: No aphasia or dysarthria CRANIAL NERVES: Pupils are equal, round and reactive. EOMs full and conjugate. Facial sensation intact in all three divisions bilaterally. Mandibular strength intact. Facial muscles symmetrical and strength intact. SENSATION: Sensation to touch and pinprick is okay MOTOR: Normal tone in the upper and lower extremity. Normal muscle bulk. No fasciculations. No abnormal movements or posturing. Muscle strength of the major groups in the extremities is no less than 4/5, REFLEXES: Deep tendon reflexes are symmetrical. No pathological reflexes. CEREBELLAR/COORDINATION: Deferred GAIT/STATION: Deferred laboratory and microbiology Laboratory Tests 10/29/24 03:10 10/29/24 03:07 Test 10/29/24 03:07 Range/Units Serum Glucose 86 74-106 mg/dL Problem List Frequent generalized seizure activity, with atypical feature Status epileptics with atypical feature Gait disturbance Assessment/Plan Monitoring Supportive treatment Telemetry Ativan for seizure breakthrough Vimpat 100 mg b.i.d. D/C Keppra Resume Trileptal 300 mg t.i.d. Physical therapy More recommendation per clinical course This medical document was created using an electronic medical record system with [employer] dictation system. Although this document has been carefully reviewed, there may still be some phonetic and typographical errors. These areas are purely typographical due to imperfections of the software programs, and do not reflect any compromise in the patient's medical care Prognosis poor Plan discussed with: Patient, Other Total Time (mins): 35 NAYAN RIOJAS MD Oct 29, 2024 10:35
[2024-10-29 17:05] VITALS: BP 119/88; PULSE 94; RESP 15; TEMP 98; O2SAT 100
--- NOTE | 2024-10-29 18:16 | DVHDS2 ---
Discharge Summary Date of Admission Oct 28, 2024 at 05:37 Date of Discharge: Oct 29, 2024 Labs/Diagnostic Data: Laboratory Results Test 10/29/24 03:10 10/29/24 03:07 10/28/24 15:25 10/27/24 22:45 White Blood Count 7.7 10^3/uL (4.4-10.8) Red Blood Count 3.97 10^6/uL (4.0-5.20) Hemoglobin 12.6 g/dL (12.2-16.2) Hematocrit 37.6 % (36.0-46.0) Mean Corpuscular Volume 94.7 fL (80.0-100.0) Mean Corpuscular Hemoglobin 31.8 pg (28.0-32.0) Mean Corpuscular Hemoglobin Concent 33.5 g/dL (32.0-36.0) Red Cell Distribution Width 13.8 % (11.8-14.3) Platelet Count 291 10^3/uL (140-450) Mean Platelet Volume 8.9 fL (6.9-10.8) Neutrophils (%) (Auto) 72.1 % (37.0-80.0) Lymphocytes (%) (Auto) 19.5 % (10.0-50.0) Monocytes (%) (Auto) 7.5 % (0.0-12.0) Eosinophils (%) (Auto) 0.3 % (0.0-7.0) Basophils (%) (Auto) 0.6 % (0.0-2.0) Neutrophils # (Auto) 5.5 10 ^3/uL (1.6-8.6) Lymphocytes # (Auto) 1.5 10 ^3/uL (0.4-5.4) Monocytes # (Auto) 0.6 10 ^3/uL (0-1.3) Eosinophils # (Auto) 0 10 ^3/uL (0-0.8) Basophils # (Auto) 0 10 ^3/uL (0-0.2) Nucleated Red Blood Cells 0.1 % Sodium Level 142 mmol/L (136-145) Potassium Level 3.7 mmol/L (3.5-5.1) Chloride Level 106 mmol/L (98-107) Carbon Dioxide Level 26 mmol/L (20-31) Anion Gap 10 (5-15) Blood Urea Nitrogen 7 mg/dL (9-23) Creatinine 0.76 mg/dL (0.550-1.02) Glomerular Filtration Rate Calc 102 mL/min (>90) BUN/Creatinine Ratio 9.2 (10.0-20.0) Serum Glucose 86 mg/dL (74-106) Calcium Level 9.1 mg/dL (8.7-10.4) Total Bilirubin 0.4 mg/dL (0.2-1.0) Aspartate Amino Transferase (AST) 21 U/L (13-40) Alanine Aminotransferase (ALT) 23 U/L (7-40) Alkaline Phosphatase 65 U/L (46-116) Total Protein 6.5 g/dL (5.7-8.2) Albumin 4.1 g/dL (3.2-4.8) Phenytoin (Dilantin) Level 13.8 ug/mL (10-20) Urine Color Light-yellow (Yellow) Urine Clarity Clear (Clear) Urine pH 6.5 (5.0-9.0) Urine Specific [place] 1.015 (1.001-1.035) Urine Protein Negative (Negative) Urine Ketones Trace (Negative) Urine Blood Negative /uL (Negative) Urine Nitrite Negative (Negative) Urine Bilirubin Negative (Negative) Urine Urobilinogen Normal mg/dL (Negative) Urine Leukocyte Esterase Negative /uL (Negative) Urine RBC 1 /hpf (0 - 4) Urine Microscopic WBC < 1 /HPF (0-5) Urine Squamous Epithelial Cells Few /hpf (<5) Urine Bacteria None seen /hpf (None Seen) Urine Mucus Few (None Seen) Urine Glucose Normal mg/dL (Normal) Test 10/27/24 21:44 10/27/24 19:21 B-Type Natriuretic Peptide 56.36 pg/mL (0-100) Troponin I High Sensitivity < 3 ng/L (</=34) Other Laboratory Tests 10/29/24 03:10 10/29/24 03:07 Brief Hx & Hospital Course: 39-year-old female with a known history of seizure disorder presented to the hospital with a generalized tonic-clonic seizure eventually admitted. Patient was resumed on home medications. Patient was seen by Neurology. As patient is a [place] patient patient will be transferred to [place] for continuation of care. marketing services specialist has been consulted who will arrange transferred to [facility]. Condition at Discharge: Stable Final Diagnosis/Problems List 1. Breakthrough seizures 2. Epilepsy 3. Chronic asthma 4. Gait disturbance 5. Morbid obesity classII Discharge Disposition: Acute Care Facility SNF Discharge Will this Physician continue t: No Discharge Instruct/Medications Scheduled Clindamycin Hcl (Clindamycin Hcl), 1 CAP PO TID Scheduled PRN Hydrocodone-Acetaminophen (Hydrocodone Bitartrate/AC 5-325 mg), 1 TAB PO Q8HP PRN Discharge Statement: "Patient was advised to return to the ER or call 911 if any headaches, dizziness, shortness of breath, chest pain, abdominal pain, bleeding, fevers, or worsening of medical condition. Patient was counseled about treatment plan, medications, possible side effects, patientverbalized understanding. All questions were answered to the best of my ability. This discharge took greater then 30 minutes in planning, reviewing documentation, counseling the patient, and discussing with other team members." ASSESSMENT ASSESSMENT Assessment Date of Service: Oct 29, 2024 Billing Provider: VIVIANA TURNER MD Common Visit Codes: 43909-[id number] DISCH DAY >30min VIVIANA TURNER MD Oct 29, 2024 18:16
== END 2024-10-29 17:15 | disposition short-term general hospital (02) | DRG 53 ==
LOC: ER 18:40 → EDBD 18:40 → EDUNIT# 18:40 → OVERFLOW 10-28 05:37
PROVIDERS: ADMIT Nurse Practitioner Family; ATTEND Nurse Practitioner Family
DX: G40.401 Other generalized epilepsy and epileptic syndromes, not intractable, with status epilepticus (principal); E66.01 Morbid (severe) obesity due to excess calories; J45.909 Unspecified asthma, uncomplicated; Z68.35 Body mass index [BMI] 35.0-35.9, adult; R26.9 Unspecified abnormalities of gait and mobility; Z88.0 Allergy status to penicillin
CPT/HCPCS: 36415; 70450; 80048; 80053; 80185; 81001; 82542; 83880; 84484; 85025; 93005; 99291; C9254; G0378; J2250; J2405